=== PATIENT | female | born 1955 | race Caucasian/White ===

== ENCOUNTER 2018-04-28 06:33 | Emergency (ER) | payer BC ==
[2018-04-28] MEDS ORDERED: Metoclopramide HCl 10 MG/2 ML VIAL ONE (07:04)
[2018-04-28] MEDS ORDERED: diphenhydrAMINE 50 MG/ML VIAL ONE (07:04)
[2018-04-28 07:20] LABS: #Lymphocytes 0.8 thou/uL (1.20-3.40); #Monocytes 0.5 thou/uL (0.11-0.59); %Basophils 0.2 % (0.0-1.0); %Eosinophils 0.1 % (0.0-10.0); %Lymphocytes 8.1 % (21.0-51.0); %Monocytes 4.4 % (0.0-10.0); %Neutrophils 87.2 % (42.0-75.0); Hemoglobin 14.2 g/dL (12.0-16.0); Mean Corpuscular HGB CONC 34.1 g/dL (32.0-36.0); Mean Corpuscular Hemoglobin 30.9 pg (27.0-31.0); Mean Corpuscular Volume 90.4 fl (81.0-99.0); Platelet Count 201 thou/uL (130-400); RBC Distribution Width 13.4 % (11.5-14.5); White Blood Cell (WBC) Count 10.3 thou/uL (4.8-10.8)
[2018-04-28 07:40] LABS: ALT (SGPT) 18 U/L (8-55); AST (SGOT) 13 U/L (5-34); Albumin 4.4 g/dL (3.5-5.0); Alkaline Phosphatase 84 U/L (40-150); Anion Gap 12 mmol/L (10-20); BUN (Urea Nitrogen) 15 mg/dL (9.8-20.1); Bilirubin, Total 1.5 mg/dL (0.2-1.2); Calc. Creatinine Clearance 0 mL/min (70-130); Calcium 9.9 mg/dL (7.8-10.44); Carbon Dioxide 27 mmol/L (22-29); Chloride 101 mmol/L (98-107); Estimated GFR-MDRD 74; Globulin 3.3 g/dL (2.4-3.5); Glucose 129 mg/dL (70-105); Potassium 3.4 mmol/L (3.5-5.1); Protein, Total 7.7 g/dL (6.0-8.3); Sodium 137 mmol/L (136-145)
[2018-04-28] MEDS ORDERED: Ketorolac Tromethamine 30 MG/ML VIAL ONE (08:15)
[2018-04-28] MEDS ORDERED: Morphine 4 MG/ML VIAL ONE ×3 (09:07→13:00)
--- NOTE | 2018-04-28 09:27 | CT ---
HEAD CT WITHOUT CONTRAST: History: Headache. Comparison: None. Technique: Noncontrast head CT is performed from skull base to skull vertex. FINDINGS: No parenchymal hemorrhage. No extraaxial hematoma. No midline shift. Basilar cisterns are patent. The re appears to be vasogenic edema in the right frontal lobe. No midline shift. Basilar cisterns are pa tent. Ventricles and sulci are patent and symmetric. Calvarium is intact. Adequate aeration of sinuse s and mastoid air cells. IMPRESSION: Vasogenic edema right frontal lobe. MRI is recommended. POS: [facility]
[2018-04-28] MEDS ORDERED: Water For Inject, Bacteriostat 30 ML ONE (10:05)
[2018-04-28] MEDS ORDERED: methylPREDNISolone Sod Succ/PF 125 MG/2 ML VIAL ONE (10:05)
[2018-04-28] MEDS ORDERED: Gadobenate Dimeglumine 529 MG/1 ML (20ML VIAL) ONE (10:43)
--- NOTE | 2018-04-28 12:32 | MRI ---
BRAIN MRI WITH AND WITHOUT CONTRAST: HISTORY: Vasogenic edema noted on CT. COMPARISON: 02/25/13. TECHNIQUE: A brain MRI is performed with and without intravenous Gadolinium administration. Multisequential, mu ltiplanar imaging is performed. FINDINGS: There is T1 hyperintensity involving the right frontal lobe due to vasogenic edema secondary to an ex traaxial T2 hypointense mass with homogeneous enhancement and enhancing dural tail. Interval develop ment of meningioma is favored. This meningioma is not present on the previous examination. Interval growth and vasogenic edema raise the possibility of a possible aggressive lesion. Meningioma measur es 1.5 cm mediolateral x 1.9 cm anterior posterior x 1.6 cm craniocaudal. No pathologic enhancement of the brain parenchyma. Central arterial flow voids are maintained. Absent restricted diffusion. Additional T2 and FLAIR white matter hyperintensities due to chronic small-vessel ischemic change are noted. No evidence of hydrocephalus. No midline shift. Adequate aeration of the sinuses and mastoid air ce lls. IMPRESSION: Extraaxial mass involving the right frontal convexity with imaging features that have evidence for a right frontal meningioma. POS: [facility]
--- NOTE | 2018-04-28 13:25 | CON ---
DATE OF CONSULTATION: 04/28/2018 ATTENDING PHYSICIAN: Guerrero Mccarty M.D. HISTORY OF PRESENT ILLNESS: The patient is a 62-year-old female with past medical history of hypertension, hyperlipidemia, COPD who presented to the emergency department for headache which be domi today. She describes as a throbbing sensation all across the frontal region with associated phot ophobia, and nausea, vomiting. She does report rheumatic headaches over the last few months in the s imilar region which she had previously attributed to allergies. CT head and MRI were done on arrival , which revealed a right frontal extraaxial lesion which is contrast enhancing favor to represent men ingioma formation. There is some surrounding vasogenic edema as well. The patient was treated with IV Solu-Medrol with some improvement in her symptoms. I am seeing the patient at the bedside. She i s awake, alert, no acute distress. Pupils are equal and reactive to light. Extraocular movements ar e intact. There are no focal neurologic deficits appreciated on my exam. PAST MEDICAL HISTORY: Hypertension, hyperlipidemia, COPD, sleep apnea, morbid obesity. PAST SURGICAL HISTORY: Bilateral knee replacement, breast reduction, cholecystectomy, tonsillectomy, tubal ligation. SOCIAL HISTORY: The patient is a former smoker. She quit in 2001. She does not drink or use any dr ugs. FAMILY HISTORY: Noncontributory. ALLERGIES: The patient has no known drug allergies. REVIEW OF SYSTEMS: Per HPI. PHYSICAL EXAMINATION: VITAL SIGNS: Pulse 77, blood pressure 112/69, respiration rate is 20. She is 93% on 2 liters, tempe rature is 98.6. CONSTITUTIONAL: She is awake and alert, no acute distress. HEAD: Normocephalic, atraumatic. EYES: PERRLA. Extraocular movements intact. ENT: Oral mucosa is pink, intact, moist. She has normal voice. NECK: Nontender to palpation. Free active range of motion, no meningismus nuchal rigidity. CARDIOVASCULAR: Regular rate and rhythm. LUNGS: Breathing clear. She has symmetric chest expansion without any evidence of dyspnea. MUSCULOSKELETAL: Good muscle tone bilateral upper and lower extremities, no focal neurologic deficit s are appreciated. NEUROLOGIC: She is A&O. She has normal cranial nerve exam. No focal neurologic deficits are apprec iated. PLAN: The patient has presented to the ER [facility] with headache, nausea, and vomiting with imaging, which revealed a right frontal lesion favored to represent meningioma formation with surrounding vaso genic edema. She has been treated with IV steroids in the emergency department as well as pain medic ation, nausea medication and reports she is feeling better at this time. She has no neurologic defic its on her exam. I have discussed patient's imaging and presentation as well as exam findings with Beverly Mccarty. She agrees with the patient can be discharged home on a steroid trace taper. I have also provided her with scripts for Tylenol No. 3 for pain and Zofran for nausea. We will plan to follow u p patient in the office in the morning with Dr. Mccarty. I have discussed precautions and reasons to r eturn to the ER. Family is amenable to this plan.
== END 2018-04-28 13:25 | disposition home or self-care (01) ==
LOC: ERS 06:33
DX: D32.1 Benign neoplasm of spinal meninges (principal); R51 Headache; R11.10 Vomiting, unspecified; G47.30 Sleep apnea, unspecified; E78.5 Hyperlipidemia, unspecified; E66.9 Obesity, unspecified; J44.9 Chronic obstructive pulmonary disease, unspecified; F32.9 Major depressive disorder, single episode, unspecified; I10 Essential (primary) hypertension; Z87.891 Personal history of nicotine dependence; Z79.899 Other long term (current) drug therapy
CPT/HCPCS: 70450; 70553; 80053; 83605; 85025; 94760; 96365; 96366; 96375; 96376; A9579; J1200; J1885; J2270; J2765; J2930

== ENCOUNTER 2018-05-09 09:29 | Outpatient (CLI) | payer BC ==
--- NOTE | 2018-05-09 11:34 | CT ---
CT THORAX WITH IV CONTRAST CT ABDOMEN AND PELVIS WITH IV CONTRAST: Date: 05/09/18 HISTORY: Right frontal brain mets, evaluate for primary site. COMPARISON: None available. FINDINGS: CT THORAX: Vascular calcifications seen in the thoracic aorta. Mediastinal structures have a normal appearance a nd there is no evidence of lymphadenopathy. There is minimal nodularity seen along the major fissure on the right, likely related to area of mild nodular pleural thickening. No discrete noncalcified pul monary nodule, mass, or pleural effusion is seen. Atelectasis is seen within the right middle lobe an d lingula with minimal dependent atelectasis. Degenerative changes are seen in the spine. There are sclerotic densities seen along the inferior end plates of a few of the thoracic vertebral bodies, probably related to Schmorl's nodes. No suspicious lytic or sclerotic osseous lesions are identified. CT ABDOMEN/PELVIS: Post cholecystectomy changes are noted. The liver, spleen, pancreas, bilateral adrenal glands, kidneys, opacified bowel, and urinary bladder demonstrate a normal CT appearance. The uterus is small in size, within normal limits for patient's age. Vascular calcifications seen in abdominal aorta and iliac arteries. No free fluid, fluid collection, or lymphadenopathy seen in the abdomen or pelvis. Degenerative changes are seen in the spine. No lytic or sclerotic osseous lesions are identified. IMPRESSION: 1. No acute findings are seen in the chest, abdomen, or pelvis. 2. No lymphadenopathy or findings to suggest metastatic disease. 3. Enlargement of the liver in craniocaudal dimensions, which measures 20.0 cm, but this may be deve lopmental in origin. 4. Vascular calcifications. POS: [facility]
[2018-05-09] MEDS ORDERED: Iopamidol 370 76% 100 ML VIAL ONE (16:28)
== END 2018-05-09 09:30 | disposition home or self-care (01) ==
LOC: CT 09:29
PROVIDERS: ATTEND Radiology Radiation Oncology
DX: C79.31 Secondary malignant neoplasm of brain (principal); R16.0 Hepatomegaly, not elsewhere classified; I70.0 Atherosclerosis of aorta
CPT/HCPCS: 71260; 74177

== ENCOUNTER 2018-06-12 10:11 | Outpatient (CLI) | payer BC ==
[2018-06-12 12:55] LABS: Hemoglobin 13.6 g/dL (12.0-16.0); Mean Corpuscular HGB CONC 33.3 g/dL (32.0-36.0); Mean Corpuscular Hemoglobin 31.4 pg (27.0-31.0); Mean Corpuscular Volume 94.2 fL (78.0-98.0); Mean Platelet Volume 8.1 fL (7.4-10.4); Platelet Count 208 thou/uL (130-400); RBC Distribution Width 13.1 % (11.5-14.5); Red Blood Cell (RBC) Count 4.32 mill/uL (4.20-5.40)
[2018-06-12 12:59] LABS: INR-International Normal Ratio 0.9; Prothrombin Time 12.4 SEC (12.0-14.7)
[2018-06-12 13:06] LABS: PTT 21.6 SEC (22.9-36.1)
[2018-06-12 13:11] LABS: Anion Gap 12 mmol/L (10-20); BUN (Urea Nitrogen) 22 mg/dL (9.8-20.1); Calc. Creatinine Clearance 0 mL/min (70-130); Calcium 10.2 mg/dL (7.8-10.44); Carbon Dioxide 33 mmol/L (23-31); Chloride 100 mmol/L (98-107); Estimated GFR-MDRD 79; Glucose 74 mg/dL (80-115); Potassium 3.7 mmol/L (3.5-5.1); Sodium 141 mmol/L (136-145)
[2018-06-12 13:25] LABS: ALT (SGPT) 32 U/L (8-55); AST (SGOT) 13 U/L (5-34); Albumin 4.1 g/dL (3.4-4.8); Alkaline Phosphatase 53 U/L (40-150); Bilirubin, Direct 0.3 mg/dL (0.1-0.3); Protein, Total 6.8 g/dL (6.0-8.3)
--- NOTE | 2018-06-12 14:02 | RAD ---
TWO VIEWS CHEST: 06/12/2018 PROVIDED CLINICAL HISTORY: Preop. COMPARISON: 10/02/2012 FINDINGS: The cardiac silhouette appears enlarged. The pulmonary vasculature is at the upper limits of normal in size. No focal consolidation, pleural fluid, or pneumothorax apparent. Degenerative changes are seen involving the thoracic spine. IMPRESSION: Cardiomegaly and upper limits of normal pulmonary vasculature. POS: [facility]
--- NOTE | 2018-06-12 16:33 | EKG ---
Test Reason : Blood Pressure : / mmHG Vent. Rate : 065 BPM Atrial Rate : 065 BPM P-R Int : 184 ms QRS Dur : 090 ms QT Int : 426 ms P-R-T Axes : 038 023 032 degrees QTc Int : 443 ms Poor data quality, interpretation may be adversely affected Sinus rhythm with Possible Premature atrial complexes with Abberant conduction or premature ventricular complexes. Otherwise normal ECG No previous ECGs available Confirmed by CARMEN CADE ([id number]) on 06/12/2018 4:33:30 PM Referred By: GIL Confirmed By:CARMEN CADE
== END 2018-06-12 10:12 | disposition home or self-care (01) ==
LOC: LABBT 10:11
PROVIDERS: ATTEND Neurological Surgery
DX: Z01.818 Encounter for other preprocedural examination (principal); D49.6 Neoplasm of unspecified behavior of brain; I51.7 Cardiomegaly
CPT/HCPCS: 71046; 80048; 80076; 85027; 85610; 85730; 87086; 93005; 93010

== ENCOUNTER 2018-06-12 10:15 | Inpatient (IN) | payer BC ==
--- NOTE | 2018-06-20 00:40 | HP ---
HISTORY OF PRESENT ILLNESS: Ms. Smith is a 63-year-old woman known to us for emergency room evaluatio n for headache with MRI of the brain revealing right-sided skull based frontal dural-based lesion, li luke meningioma with some associated peritumoral edema. He has been on steroids while we plan on italo gical resection that she has seen Dr. Cox for consultation on stereotactic radiosurgery to raysa wasserman surgical resection. PAST MEDICAL HISTORY: Significant for hyperlipidemia, hypertension, gastroesophageal reflux disease, anxiety. CURRENT MEDICATIONS: VESIcare, pantoprazole, lovastatin, lisinopril, and citalopram. ALLERGIES: No known drug allergies. PAST SURGICAL HISTORY: Unassessed. PHYSICAL EXAMINATION: GENERAL: Patient is alert and oriented x3. NEUROLOGIC: Gait is normal, no ataxia. Cranial nerves are all intact. ASSESSMENT: Extraaxial intracranial mass and headache. PLAN: Dr. Mccarty met with the patient, reviewed imaging ultimately advocated for a right cranio joi with dural based lesion resection. I have explained to the patient the risks, benefits, and alt ernatives to the procedure. The patient expressed understanding and would like to move forward with surgery as discussed. I do believe the patient is mentally competent and capable of making medical d ecisions for herself and we will move forward with surgery as planned.
[2018-06-20] MEDS ORDERED: Propofol 1,000 MG/100 ML VIAL IV ONE (06:12)
[2018-06-20] MEDS ORDERED: Fentanyl 250 MCG/5 ML VIAL ONE (06:12)
[2018-06-20] MEDS ORDERED: Midazolam HCl 2 mg/2 ml Vial ONE (06:12)
[2018-06-20] MEDS ORDERED: CEFAZOLIN/Water 2 GM/20 ML SYRINGE ONE (06:39)
[2018-06-20] MEDS ORDERED: Bacitracin Zinc Ointment 30 gm TUBE ONE (06:43)
[2018-06-20] MEDS ORDERED: Thrombin 5000 UNITS/5 ML VIAL ONE (06:43)
[2018-06-20] MEDS ORDERED: Lidocaine 0.5%/Epinephrine 1:200,000 50 ml Vial ONE (06:43)
[2018-06-20] MEDS ORDERED: niCARdipine HCl 25 MG in Sodium Chloride 0.9% 250 ML 240 ML IVPB SCH (07:15)
[2018-06-20] MEDS ORDERED: Fosphenytoin Sodium 500 mg/10 ml Vial ONE ×2 (07:15→08:01)
[2018-06-20] MEDS ORDERED: Fentanyl 100 MCG/2 ML VIAL ONE ×3 (08:17→10:35)
[2018-06-20] MEDS ORDERED: PHENYLEPHRINE-NS 100 MCG/ML 10 ML SYRINGE ONE ×2 (08:37→15:05)
[2018-06-20] MEDS ORDERED: Ondansetron HCl/PF 4 MG/2 ML Vial IVP PRN (10:14)
[2018-06-20] MEDS ORDERED: diphenhydrAMINE 50 MG/ML VIAL IVP PRN (10:14)
[2018-06-20] MEDS ORDERED: hydrALAZINE 20 MG/ML VIAL SLOW IVP PRN (10:14)
[2018-06-20] MEDS ORDERED: Mag-Al 1200 mg/1200 mg/30 ML UDCUP PO PRN (10:14)
[2018-06-20] MEDS ORDERED: Labetalol HCl 100 MG/20 ML VIAL SLOW IVP PRN (10:14)
[2018-06-20] MEDS ORDERED: SUGAMMADEX SODIUM 200 MG/2 ML VIAL ONE (10:15)
[2018-06-20] MEDS ORDERED: Sodium Chloride 0.9% 1,000 ML IV SCH (10:15)
[2018-06-20] MEDS ORDERED: PROVENTIL INHALER 6.7 G (200 INHALATIONS) INH PRN (10:18)
[2018-06-20] MEDS ORDERED: Ipratropium Bromide 0.03% Nasal Inhaler 30 ml Bottle FS PRN (10:18)
[2018-06-20] MEDS ORDERED: Acetaminophen 1,000 MG in Premix Bag 1 BAG IVPB PRN (10:19)
[2018-06-20] MEDS ORDERED: HYDROmorphone 2 MG/ML VIAL SLOW IVP PRN (10:51)
[2018-06-20] MEDS ORDERED: Morphine Sulfate 2 MG/ML SYRINGE SLOW IVP PRN (10:51)
[2018-06-20] MEDS ORDERED: Meperidine HCl/PF 25 MG/ML VIAL SLOW IVP PRN (10:51)
[2018-06-20] MEDS ORDERED: Promethazine HCl 25 MG/ML VIAL SLOW IVP PRN (10:51)
[2018-06-20] MEDS ORDERED: Betamethasone 0.1% Cream 15 GM TUBE TOP PRN (11:15)
[2018-06-20] MEDS ORDERED: [UNRECOGNIZED DRUG - OTHER] TOP PRN (11:30)
[2018-06-20 12:21] VITALS: BMI 54.9
[2018-06-20] MEDS: HYDROcodone/Acetaminophen 7.5/325 mg Tablet PO PRN ×3 (13:05→21:23)
[2018-06-20] MEDS: Fosphenytoin Sodium 100 MG in Sodium Chloride 0.9% 50 ML IVPB SCH ×2 (13:42→21:22)
[2018-06-20] MEDS ORDERED: Fosphenytoin Sodium 100 mg/2 ml Vial IVPB SCH (15:00)
[2018-06-20] MEDS ORDERED: Lidocaine 1% PF 5 ML VIAL ONE (15:05)
[2018-06-20] MEDS ORDERED: ePHEDrine/0.9% NaCl/PF SYRINGE 50 mg/10 ml ONE ×2 (15:05)
[2018-06-20] MEDS ORDERED: PROPOFOL 200 MG/20 ML VIAL ONE (15:05)
[2018-06-20] MEDS ORDERED: Glycopyrrolate 0.2 MG/ML 5 ML SYRINGE ONE (15:05)
[2018-06-20] MEDS ORDERED: Mannitol 12.5 GM/50 ML ONE (15:05)
[2018-06-20] MEDS ORDERED: Hydrocortisone Sod Succ/PF 100 mg/2 ml Vial ONE (15:05)
[2018-06-20] MEDS ORDERED: Vecuronium 10 MG VIAL ONE (15:05)
[2018-06-20] MEDS ORDERED: Ondansetron HCl/PF 4 MG/2 ML Vial ONE (15:05)
[2018-06-20] MEDS ORDERED: Esmolol 100 MG/10 ML VIAL ONE (15:05)
[2018-06-20] MEDS: CEFAZOLIN/Water 2 GM/20 ML SYRINGE SLOW IVP SCH ×2 (15:23→23:38)
[2018-06-20] MEDS ORDERED: Furosemide 40 MG/4 ML VIAL SLOW IVP SCH (16:00)
[2018-06-20] MEDS: Mometasone/Formoterol 120 PUFF INHALER INH SCH (18:28)
--- NOTE | 2018-06-20 20:43 | CON ---
DATE OF CONSULTATION: 06/20/2018 SERVICE: PULMONARY MEDICINE. REASON FOR CONSULTATION: ICU patient. HISTORY OF PRESENT ILLNESS: The patient is a 63-year-old morbidly obese white female with past medic al history significant for asthma and obstructive sleep apnea. She was in her usual state of health when she started having intermittent headaches and common vision issues. She had an MRI of the head in the outpatient setting. It demonstrated a meningioma. She presented for an elective procedure in order to have the meningioma removed. She currently denies any fevers, chills, nausea or vomiting. She has got a good appetite at this point. PAST MEDICAL HISTORY: 1. Morbid obesity. 2. Hypertension. 3. Dyslipidemia. 4. Obstructive sleep apnea, severe. 5. Gastroesophageal reflux disease. 6. Anxiety disorder. PAST SURGICAL HISTORY: Craniectomy with excision of meningioma. FAMILY HISTORY: Noncontributory. SOCIAL HISTORY: Negative for alcohol, tobacco or illicit drug use. ALLERGIES: No known drug allergies. MEDICATIONS: List of her inpatient medications was reviewed. No specific updates were made at this time. REVIEW OF SYSTEMS: General, head, ears, eyes, nose, throat, cardiovascular, respiratory, GI, , mus culoskeletal, neurologic and skin is negative except as mentioned in the HPI. PHYSICAL EXAMINATION: VITAL SIGNS: Afebrile, pulse 84, blood pressure 127/57, respirations 16, saturation 93% on 2 liters nasal cannula. GENERAL: Patient is awake, alert, no apparent distress. LUNGS: Decent air entry. There is no prolonged expiratory phase or wheezing present. HEART: Normal rate, regular. ABDOMEN: Soft, nontender and nondistended. Bowel sounds positive. MUSCULOSKELETAL: No cyanosis or clubbing. There is 1+ pitting in the bilateral lower extremities. NEUROLOGIC: Grossly nonfocal. LABORATORY DATA: Blood sugar 149. ASSESSMENT: 1. Acute hypoxic respiratory failure. 2. Asthma without recurrent exacerbation. 3. Acute on chronic diastolic heart failure. 4. Meningioma, status post frontal craniectomy with excision, postop day 0. 5. Seizure in the immediate postop period. DISCUSSION AND PLAN: The patient is doing absolutely fantastic. We will provide her with a dose of Lasix. We will watch her very closely for repeat seizure activity or changes in mental status. We w ill continue her Dulera and I will provide her with DuoNeb to be used on a p.r.n. basis. She knows t hat she needs to use her CPAP while she is here. She required 14 cm of water pressure. If she can h ave that at her home unit, we will try to arrange for her to have one of ours. Pulmonary or Critical Care will continue to follow along in this location.
[2018-06-20] MEDS: Dexamethasone 4 MG TAB PO SCH (21:22)
[2018-06-20] MEDS: Simvastatin 5 MG TAB PO SCH (21:58)
[2018-06-20] MEDS: TROSPIUM 20 MG TABLET PO SCH (21:59)
[2018-06-21 04:53] LABS: #Lymphocytes 1.7 thou/uL (1.20-3.40); #Monocytes 1.2 thou/uL (0.11-0.59); #Neutrophils 12.9 thou/uL (1.40-6.50); %Eosinophils 0.2 % (0.0-10.0); %Lymphocytes 10.7 % (21.0-51.0); %Monocytes 7.4 % (0.0-10.0); %Neutrophils 81.6 % (42.0-75.0); Hemoglobin 13.3 g/dL (12.0-16.0); Mean Corpuscular HGB CONC 33.5 g/dL (32.0-36.0); Mean Corpuscular Hemoglobin 31.7 pg (27.0-31.0); Mean Corpuscular Volume 94.5 fL (78.0-98.0); Mean Platelet Volume 7.5 fL (7.4-10.4); Platelet Count 228 thou/uL (130-400); RBC Distribution Width 13.3 % (11.5-14.5); Red Blood Cell (RBC) Count 4.19 mill/uL (4.20-5.40); White Blood Cell (WBC) Count 15.8 thou/uL (4.8-10.8)
[2018-06-21 05:33] LABS: Anion Gap 16 mmol/L (10-20); BUN (Urea Nitrogen) 19 mg/dL (9.8-20.1); Calc. Creatinine Clearance 163 mL/min (70-130); Calcium 9.4 mg/dL (7.8-10.44); Carbon Dioxide 28 mmol/L (23-31); Chloride 97 mmol/L (98-107); Estimated GFR-MDRD 81; Glucose 102 mg/dL (80-115); Potassium 4.2 mmol/L (3.5-5.1); Sodium 137 mmol/L (136-145)
[2018-06-21] MEDS: Mometasone/Formoterol 120 PUFF INHALER INH SCH ×2 (07:27→19:08)
[2018-06-21] MEDS: Fosphenytoin Sodium 100 MG in Sodium Chloride 0.9% 50 ML IVPB SCH ×3 (08:01→21:58)
[2018-06-21] MEDS ORDERED: Vit B12/Folic Acid/B6/Aa No.15 [Glycotrol Capsule] PO SCH (09:00)
[2018-06-21] MEDS ORDERED: Famotidine 20 MG TAB PO SCH (09:00)
[2018-06-21] MEDS ORDERED: Citalopram 20 MG TAB PO SCH (09:00)
[2018-06-21] MEDS: Benzonatate 100 MG CAP PO SCH (09:13)
[2018-06-21] MEDS: Citalopram 20 MG TAB PO SCH (09:22)
[2018-06-21] MEDS: Dexamethasone 4 MG TAB PO SCH ×2 (09:23→21:58)
[2018-06-21] MEDS: Multivit, Therapeutic 1 TAB PO SCH (09:25)
[2018-06-21] MEDS: Lisinopril 20 MG TAB PO SCH (09:25)
[2018-06-21] MEDS: Docusate 100 MG CAP PO SCH (09:27)
[2018-06-21] MEDS: TROSPIUM 20 MG TABLET PO SCH ×2 (10:37→21:58)
--- NOTE | 2018-06-21 11:07 | PRG ---
DATE OF SERVICE: 06/21/2018 SERVICE: Pulmonary Medicine. INTERVAL HISTORY: Overnight, the patient's appetite picked up. She is no longer having any nausea. She denies any fevers, chills, nausea, vomiting, shortness of breath or chest discomfort. Her lower extremity swelling has improved dramatically. Otherwise, there has been no interval change to her c ondition. PHYSICAL EXAMINATION: VITAL SIGNS: Afebrile, pulse 80, blood pressure 132/75, respirations 17, saturation 97% on room air. GENERAL: The patient is awake, alert, in no apparent distress. LUNGS: Excellent air entry. There is no prolonged expiratory phase, wheezing, rhonchi, or crackles present. HEART: Normal rate, regular. ABDOMEN: Soft, nontender and nondistended. Bowel sounds are positive. MUSCULOSKELETAL: No cyanosis or clubbing. No pitting in the bilateral lower extremities. NEUROLOGIC: Nonfocal. LABORATORY DATA: WBC 15.8, hemoglobin 13.3, platelets 228,000. Basic metabolic profile is unremarka ble. ASSESSMENT: 1. Acute hypoxic respiratory failure, resolved. 2. Asthma without current exacerbation. 3. Acute on chronic diastolic heart failure, resolved to baseline. 4. Meningioma, status post frontal craniectomy with excision, postop day #1. 5. Seizure in the immediate postop period, resolved. DISCUSSION AND PLAN: The patient will be transitioned to the floor. From a purely respiratory persp ective, she has no pulmonary requirements today in the hospital. Hopefully, she will be going home i n 24 hours. Agree with transition to the floor.
[2018-06-21] MEDS: HYDROcodone/Acetaminophen 7.5/325 mg Tablet PO PRN (16:15)
--- NOTE | 2018-06-21 18:07 | PRG ---
DATE OF SERVICE: 06/21/2018 I am seeing Ms. Smith postoperative day 1 from resection of a right frontal meningioma. She is doing extremely well, is up eating and neurologically intact. She has right periorbital ecchymosis as anti cipated. She will go to the floor today and home in the next several days depending on her ambulatio n.
[2018-06-21] MEDS ORDERED: Sodium Chloride 0.9% 10 ML ONE (19:46)
[2018-06-21] MEDS: Simvastatin 5 MG TAB PO SCH (21:58)
[2018-06-22] MEDS: HYDROcodone/Acetaminophen 7.5/325 mg Tablet PO PRN ×2 (04:12→22:09)
[2018-06-22] MEDS: Mometasone/Formoterol 120 PUFF INHALER INH SCH ×2 (07:34→19:12)
--- NOTE | 2018-06-22 08:25 | PRG ---
DATE OF SERVICE: 06/22/2018 SUBJECTIVE: Ms. Smith is postoperative day #2, status post resection of right frontal meningioma. She was transitioned to the floor yesterday and since that time reports that she is doing well. Her pain is well controlled with p.o. medications, she is tolerating regular diet, she is voiding appropriately. She has been ambulatory short distance to the bathroom, but her family reports she still seems to be unsteady on her feet and slightly lightheaded with getting up suddenly.Her incision remains dry and intact. We will have her continue to work with PT, OT and I have placed a rehab screen per the patient and family request. LUCY
[2018-06-22] MEDS: Benzonatate 100 MG CAP PO SCH (08:43)
[2018-06-22] MEDS: Lisinopril 20 MG TAB PO SCH (10:18)
[2018-06-22] MEDS: TROSPIUM 20 MG TABLET PO SCH ×2 (10:19→22:01)
[2018-06-22] MEDS: Multivit, Therapeutic 1 TAB PO SCH (10:19)
[2018-06-22] MEDS: Docusate 100 MG CAP PO SCH (10:19)
[2018-06-22] MEDS: Citalopram 20 MG TAB PO SCH (10:20)
[2018-06-22] MEDS: Fosphenytoin Sodium 100 MG in Sodium Chloride 0.9% 50 ML IVPB SCH ×3 (10:20→22:01)
[2018-06-22] MEDS: Dexamethasone 4 MG TAB PO SCH ×2 (10:26→22:01)
--- NOTE | 2018-06-22 18:53 | PRG ---
DATE OF SERVICE: 06/22/2018 SERVICE: Pulmonary Medicine. INTERVAL HISTORY: The patient is doing outstanding from a respiratory standpoint. She is breathing comfortably. She continues to have a headache, but is a different quality of headache. She is no lo nger pounding/throbbing headache. She is tolerating p.o. She is passing gas and having bowel moveme nts. Otherwise, there has been no notable change to her condition. If things go well, she is told t hat she will be going home in the morning. PHYSICAL EXAMINATION: VITAL SIGNS: Afebrile, pulse 78, blood pressure 160/82, respirations 15, saturation 92% on room air. GENERAL: The patient is awake, alert, no apparent distress. LUNGS: Decent air entry. Dependent crackles are minimal. No prolonged expiratory phase or wheezing is appreciated. HEART: Normal rate, regular. ABDOMEN: Soft, nontender, nondistended. Bowel sounds are positive. MUSCULOSKELETAL: No cyanosis or clubbing. There is no pitting in the bilateral lower extremities. NEUROLOGIC: Grossly nonfocal. ASSESSMENT: 1. Acute hypoxic respiratory failure, resolved. 2. Asthma without current exacerbation. 3. Obstructive sleep apnea, compliant with CPAP therapy. 4. Acute on chronic diastolic heart failure, resolved to baseline. 5. Seizure in the immediate postoperative period, resolved. 6. Meningioma, status post frontal craniotomy with excision, postoperative day 2. DISCUSSION AND PLAN: The patient is doing absolutely wonderful from a respiratory standpoint. At th is point, she has no further requirements for inpatient Pulmonary or Critical Care opinion. As such, I will sign off. Please call with additional questions or concerns moving forward.
[2018-06-22] MEDS: Simvastatin 5 MG TAB PO SCH (22:01)
[2018-06-23] MEDS: Mometasone/Formoterol 120 PUFF INHALER INH SCH (07:07)
[2018-06-23] MEDS: Fosphenytoin Sodium 100 MG in Sodium Chloride 0.9% 50 ML IVPB SCH (08:44)
[2018-06-23] MEDS: Multivit, Therapeutic 1 TAB PO SCH (08:45)
[2018-06-23] MEDS: TROSPIUM 20 MG TABLET PO SCH (08:45)
[2018-06-23] MEDS: Docusate 100 MG CAP PO SCH (08:45)
[2018-06-23] MEDS: Lisinopril 20 MG TAB PO SCH (08:46)
[2018-06-23] MEDS: Citalopram 20 MG TAB PO SCH (08:47)
[2018-06-23] MEDS: Dexamethasone 4 MG TAB PO SCH (08:48)
[2018-06-23] MEDS: Benzonatate 100 MG CAP PO SCH (08:48)
[2018-06-23 11:35] VITALS: TEMP 98.9
[2018-06-23 13:34] VITALS: BP 145/85
--- NOTE | 2018-06-25 11:28 | OP ---
DATE OF PROCEDURE: 06/20/2018 SURGEON: Guerrero Mccarty M.D. ORACLE ANALYST: Storm Cardenas PA-C. INDICATION: Obtain diagnosis. DIAGNOSES: Right frontal lesion. PROCEDURE: Right frontal craniotomy, resection of tumor, cranioplasty for repair of skull defect. ANESTHESIA: General. TECHNIQUE: The patient was brought into the operating room and placed under general anesthesia. She was placed on the table in a supine position. Her head was placed in 3-point Saleh tremaine and af fixed to the bed and positioned neutral with her head turned slightly to the left. A curvilinear inc ision was planned over the right frontal bone. This area was prepped and draped in the usual sterile fashion. Following an appropriate operative pause, the incision was created. The tissue was reflec law anteriorly. Two papito holes were placed and were connected such that the right frontal craniotomy was performed. The underlying dura was identified and incised and opened where the dura was reflect ed anteriorly. There is no invasion of the frontal sinuses part of the craniotomy. The operating mi croscope was brought into the field for the purposes of microdissection. The extraaxial tumor was id entified along the floor of the right frontal fossa. This was carefully removed in a gross total fas hion. Hemostasis was maintained throughout. The wound was irrigated. The dura was closed with an o nlay of Duragen. The bone flap was returned and secured with screws and plates. Methyl methacrylate was then used to perform cranioplasty to repair dural defects as the craniotomy site was low on the frontal lobe behind the skin of the forehead. The wound was then closed in anatomic layers and a pre ssure dressing was applied. There were no known procedural complications.
== END 2018-06-23 15:15 | disposition home or self-care (01) | DRG 25 ==
LOC: SURG A 06-20 05:48 → EDSTATUS 06-20 10:15 → CCU 06-20 11:36 → SURG A 06-21 16:16
PROVIDERS: ADMIT Neurological Surgery; ATTEND Neurological Surgery
PROC: 00B70ZZ Excision of Cerebral Hemisphere, Open Approach (ICD-10-PCS; principal; 2018-06-20)
DX: D32.0 Benign neoplasm of cerebral meninges (principal); J96.01 Acute respiratory failure with hypoxia; I50.33 Acute on chronic diastolic (congestive) heart failure; Z68.43 Body mass index [BMI] 50.0-59.9, adult; J45.909 Unspecified asthma, uncomplicated; G47.33 Obstructive sleep apnea (adult) (pediatric); R56.9 Unspecified convulsions; E66.01 Morbid (severe) obesity due to excess calories; I11.0 Hypertensive heart disease with heart failure; E78.5 Hyperlipidemia, unspecified; K21.9 Gastro-esophageal reflux disease without esophagitis; F41.9 Anxiety disorder, unspecified
CPT/HCPCS: 36416; 80048; 85025; 88307; 88341; 88342; 88360; A4216; C1713; G8978-GP-CN; G8979-GP-CJ; G8987-GO-CJ; G8988-GO-CJ; G8989-GO-CJ; J1200; J1642; J1720; J1940; J2001; J2150; J2250; J2405; J2704; J3010; J7050; J7620; J8540; Q2009

== ENCOUNTER 2018-06-19 12:53 | Outpatient (CLI) | payer BC | END 2018-06-19 12:54 | disposition home or self-care (01) | LOC: BICMAMMO 12:53 | PROVIDERS: ATTEND Nurse Practitioner Family | DX: Z12.31 Encounter for screening mammogram for malignant neoplasm of breast (principal) | CPT/HCPCS: 77063; 77067 ==

== ENCOUNTER 2018-06-29 21:41 | Inpatient (IN) | payer BC ==
[~2018-06-29 21:41] MED LIST: ISOVUE-370 76%-LOCM 1 ML ONE
[2018-06-29 22:20] LABS: #Basophils 0.1 thou/uL (0.0-0.2); #Eosinphils 0.1 thou/uL (0.0-0.7); #Lymphocytes 3.2 thou/uL (1.20-3.40); #Monocytes 0.5 thou/uL (0.11-0.59); #Neutrophils 8.5 thou/uL (1.40-6.50); %Basophils 0.4 % (0.0-1.0); %Eosinophils 0.5 % (0.0-10.0); %Lymphocytes 26.3 % (21.0-51.0); %Neutrophils 68.7 % (42.0-75.0); Hemoglobin 13.7 g/dL (12.0-16.0); Mean Corpuscular HGB CONC 33.8 g/dL (32.0-36.0); Mean Corpuscular Hemoglobin 31.7 pg (27.0-31.0); Mean Corpuscular Volume 93.5 fL (78.0-98.0); Mean Platelet Volume 8.4 fL (7.4-10.4); Platelet Count 240 thou/uL (130-400); RBC Distribution Width 13.6 % (11.5-14.5); Red Blood Cell (RBC) Count 4.33 mill/uL (4.20-5.40); White Blood Cell (WBC) Count 12.3 thou/uL (4.8-10.8)
--- NOTE | 2018-06-29 22:31 | RAD ---
PORTABLE CHEST: History: Chest pain, sudden onset. FINDINGS: Heart size is enlarged. There are atherosclerotic changes of the aorta. The lungs are clear of infilt rates. There are no signs of failure. IMPRESSION: Cardiomegaly. POS: [facility]
[2018-06-29 22:37] LABS: CKMB 1.4 ng/mL (0-6.6); Troponin I 0.037 ng/mL (< 0.028)
[2018-06-29] MEDS ORDERED: Heparin 25,000 units/D5W 500 ML ONE (22:58)
--- NOTE | 2018-06-29 23:03 | CT ---
CT ANGIO OF CHEST PERFORMED WITH INTRAVENOUS CONTRAST ENHANCEMENT WITH 3D RECONSTRUCTIONS: History: Sudden onset of shortness of breath. History of recent craniotomy. FINDINGS: The lungs show areas of ground glass opacity and hypoattenuation which could indicate air trapping. N o infiltrative process or pleural effusions. The thoracic aorta is normal in caliber. There is good pulmonary artery opacification and there is massive pulmonary embolus. There is a sagit demian embolus and extensive lower lobe emboli, lesser changes of both upper lobes. Visualized liver parenchyma shows no focal findings. Gallbladder has been removed. IMPRESSION: Massive pulmonary embolus. No definitive signs of right ventricle dysfunction. The septum does not ap pear bowed. There is some reflux into the hepatic veins. Findings discussed with Dr. Guzman. POS: [facility]
[2018-06-29 23:17] LABS: Calcium 9.8 mg/dL (7.8-10.44); Chloride 104 mmol/L (98-107); Potassium 4.8 mmol/L (3.5-5.1); Sodium 139 mmol/L (136-145)
[2018-06-29 23:18] LABS: Globulin 2.8 g/dL (2.4-3.5); Glucose 208 mg/dL (80-115); Protein, Total 6.8 g/dL (6.0-8.3)
[2018-06-29 23:20] LABS: Anion Gap 17 mmol/L (10-20); Bilirubin, Total 0.2 mg/dL (0.2-1.2); Carbon Dioxide 23 mmol/L (23-31)
[2018-06-29 23:21] LABS: Alkaline Phosphatase 87 U/L (40-150)
[2018-06-29 23:22] LABS: Calc. Creatinine Clearance 0 mL/min (70-130); Estimated GFR-MDRD 68
[2018-06-29 23:23] LABS: AST (SGOT) 59 U/L (5-34); BUN (Urea Nitrogen) 29 mg/dL (9.8-20.1)
[2018-06-29 23:24] LABS: ALT (SGPT) 86 U/L (8-55)
[2018-06-29 23:25] LABS: CK (CPK) 64 U/L (29-168); Lipase 115 U/L (8-78)
[2018-06-29] MEDS ORDERED: Albuterol Sulfate 2.5 mg/3 ml Neb NEB PRN (23:27)
--- NOTE | 2018-06-29 23:44 | CT ---
CT OF BRAIN PERFORMED WITHOUT CONTRAST ENHANCEMENT: History: Patient underwent a craniotomy nine days ago. Comparison: CT and MRI study of 04-28-18. FINDINGS: There are post op right frontal craniotomy changes seen. There is edema change within the right front al lobe and there is a focus of what appears to be intraaxial hemorrhage within the right frontal lob e white matter/haywood matter junction region. Minimal mass effect is seen associated with these changes . Mastoid air cells and visualized sinuses are clear. IMPRESSION: Post op right frontal craniotomy change. There is white matter edema changes seen associated with a f ocus of parenchymal hemorrhage, somewhat diffuse in nature, suggesting that this is partially resolvi ng but does have acute elements. Main focus of hemorrhage measures approximately 12 mm in size. POS: [facility]
[2018-06-29] MEDS ORDERED: Ondansetron HCl/PF 4 MG/2 ML Vial IVP PRN (23:53)
[2018-06-29] MEDS ORDERED: Acetaminophen 325 MG TAB PO PRN (23:53)
[2018-06-29] MEDS ORDERED: Heparin 10,000 UNITS/ 10 ML VIAL SLOW IVP SCH (23:53)
[2018-06-29 23:58] LABS: Actual Bicarbonate (HCO3a) 26.6 mEq/L (22-28); Base Excess (BEa) 1.3 mEq/L (-2.0 to +3.0); CO2 Tension 44.6 mmHg (35.0-45.0); Hematocrit-ABG 37.4 % (36.0-47.0); Hemoglobin (Hb) 12.5 g/dL (12.0-16.0); O2 Tension (PaO2) 229.5 mmHg (> 80.0); pH, Arterial 7.39 (7.35-7.45)
[2018-06-29 23:59] LABS: Analyzer IN Cardio ER; Calcium, Ionized 1.2 mmol/L (1.12-1.30); Puncture Site RRAD
--- NOTE | 2018-06-30 | HP ---
DATE OF ADMISSION: 06/29/2018 CHIEF COMPLAINT: Chest pain. 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 Mccarty and patient had biopsy pending. She developed a sudden onset of chest pain around 8:00 p.m. this aft ernoon and she decided to come to the ER for further evaluation. When patient presented to the ER, s he was very hypoxic with saturations in 80s-90s and low blood pressures and the patient had a CT of t he chest suggestive of a big massive saddle embolus. The patient became hypoxic and dropped blood pr essure and was given 1 liter of IV fluids and because of the recent craniotomy 11 days ago, Neurosurg blake was consulted who had a very strict recommendations for heparin drip to avoid heparin bolus and a dvised repeat CT every day in the morning. Patient denies having any chest pain at this time. Pain is improved with the nitro. Denies having any nausea or vomiting at this time. She did have dizzine ss at the time of chest pain. No abdominal pain, no diarrhea, no constipation. She complains of num bness in both feet, edema and swelling in the right leg. PAST MEDICAL HISTORY: 1. Morbid obesity. 2. Chronic obstructive pulmonary disease. 3. Obstructive sleep apnea. 4. Hypertension. 5. Hyperlipidemia. 6. GERD. PAST SURGICAL HISTORY: Craniotomy recent 11 days ago for extracranial mass removal. ALLERGIES: No known drug allergies. HOME MEDICATIONS: VESIcare, pantoprazole, lovastatin, lisinopril, and citalopram. ALLERGIES: No known drug allergies. FAMILY HISTORY: No significant family history of coronary artery disease has been reviewed. REVIEW OF SYSTEMS: All 12 systems are reviewed with the patient thoroughly and found to be negative at this time. Systems reviewed are HEENT, CVS, SMALL ORDER CUTTER, respiratory, GI, . The following complete review of systems was negative, unless otherwise mentioned in the HPI or below: Constitutional: Weight loss or gain, sense of well-being, ability to conduct usual activities, exerc ise tolerance. Skin/Breast: Rash, itching, changes in hair growth or loss, nail changes, breast lumps, tenderness, swelling, nipple discharge. Eyes: Vision, double vision, tearing, blind spots, pain. ENT/Mouth: Headaches (location, time of onset, duration, precipitating factors), vertigo, lightheadedness, injury. Vision, double vision, tearing, blind spots, pain, nose b leeding, colds, obstruction, discharge, dental difficulties, gingival bleeding, dentures, neck stiffn ess, pain, tenderness, masses in thyroid or other areas Cardiovascular: Precordial pain, substernal distress, palpitations, syncope, dyspnea on exertion, or thopnea, nocturnal paroxysmal dyspnea, edema, cyanosis, hypertension, heart murmurs, varicosities, ph lebitis, claudication. Respiratory: Pain, shortness of breath, wheezing, stridor, cough, hemoptysis, fever or night sweats Gastrointestinal: Poor appetite, dysphagia, indigestion, abdominal pain, heartburn, eructation, naus ea, vomiting, hematemesis, jaundice, constipation, or diarrhea, abnormal stools (magen-colored, tarry, bloody, greasy, foul smelling), flatulence, hemorrhoids, recent changes in bowel habits. Genitourinary: Urgency, frequency, dysuria, nocturia, hematuria, polyuria, oliguria, unusual (or abdullahi nge in) color of urine, stones, hesitancy, change in size of stream, dribbling, acute retention or in continence, libido, potency. Musculoskeletal: Pain, swelling, redness or heat of muscles or joints, limitation, of motion, muscular weakness, atrophy, cramps. Neurologic/Psychiatric: Convulsions, paralyses, tremor, incoordination, parasthesias, difficulties w ith memory of speech, sensory or motor disturbances, or muscular coordination (ataxia, tremor), emoti onal problems, anxiety, depression, previous psychiatric care, unusual perceptions, hallucinations. Allergy/Immunologic: Skin rash, anemia, bleeding tendency, polydipsia, polyuria, intolerance to heat or cold. PHYSICAL EXAMINATION: VITAL SIGNS: Blood pressure 95/60, heart rate is 110, respiratory rate is 18, saturation is 92% on 1 5 liters of rebreather mask. GENERAL: The patient is seen lying in the bed supine, does not appear to be any acute distress at th is time, but she is on a rebreather mask. She is able to talk in full sentences. HEENT: Atraumatic, normocephalic. PERRLA. Extraocular muscles were intact. Oral mucosa is pink an d moist. CARDIOVASCULAR: S1, S2 normal. No murmurs, rubs or gallops. LUNGS: Bilateral air entry was equal. No wheezing, no crackles. ABDOMEN: Soft, nontender, no guarding, no rebound tenderness. Bowel sounds are present. EXTREMITIES: Calf tenderness is noted in the right leg more than the left leg, has the pedal edema a nd has good pulses on both the legs. SKIN: No cyanosis, no erythema or bruises were noted in upper and lower extremities and even on the face of the chest. NEUROLOGIC: Cranial nerve examination II-XII intact. No focal deficits were noted at this time. PSYCHIATRIC: No signs of suicidal ideation. No signs of ashley were noted. LABORATORY DATA: Sodium is 139, potassium 4.8, chloride 104, BUN is pending. Troponin 0.037, WBC 12 .3, hemoglobin 13.7, hematocrit is 40.5, platelets 214. ASSESSMENT AND PLAN: 1. Acute massive PE. 2. Acute hypoxic respiratory failure. 3. Non-ST elevation myocardial infarction. 4. History of recent craniotomy 11 days ago, high risk for intracranial bleeds. 5. Morbid obesity. 6. History of chronic obstructive pulmonary disease. 7. History of obstructive sleep apnea. 8. Hypertension. 9. Morbid obesity. PLAN: 1. Plan is to closely monitor this patient in the ICU with a heparin drip with no bolus. This has b een already initiated in the ER per Neurosurgery recommendations. Patient will get a CT of the head now before the heparin drip and then every days CT in the morning to monitor for any intracranial ble eding. 2. The patient is on rebreather mask at this time. ABG has been ordered which is pending. Dr. Castañeda has been consulted from the ER and we will have low threshold to intubate the patient. 3. We will continue DuoNebs every 4 hours and albuterol nebs every 2 hours as needed, and the patien t uses continuous positive airway pressure at home. We will continue with continuous positive airway pressure. 4. Non-ST elevation myocardial infarction. The patient could not be given any aspirin at this time because of high risk for bleeding. Cannot give a beta naima because of low blood pressures. We wi ll order 2D echo to look for any wall motion abnormalities. 5. Morbid obesity. We will closely monitor. 6. Hypertension with low blood pressures. At this time, we will hold off on the blood pressure medi cations. I spent 75 minutes with this patient, of this one hour is critical care time.
[2018-06-30 00:40] VITALS: BMI 53.5
[2018-06-30 00:52] LABS: Hemoglobin 13.2 g/dL (12.0-16.0); Platelet Count 232 thou/uL (130-400)
[2018-06-30 01:14] LABS: Anion Gap 17 mmol/L (10-20); BUN (Urea Nitrogen) 27 mg/dL (9.8-20.1); Calc. Creatinine Clearance 123 mL/min (70-130); Calcium 9.8 mg/dL (7.8-10.44); Carbon Dioxide 22 mmol/L (23-31); Chloride 105 mmol/L (98-107); Estimated GFR-MDRD 63; Glucose 132 mg/dL (80-115); Potassium 4.8 mmol/L (3.5-5.1); Sodium 139 mmol/L (136-145)
[2018-06-30] MEDS: HYDROcodone/Acetaminophen 5/325 mg Tablet PO PRN ×3 (01:14→18:25)
[2018-06-30] MEDS: Sodium Chloride 0.9% 1,000 ML IV SCH ×2 (01:17→04:18)
[2018-06-30 07:01] LABS: #Basophils 0.2 thou/uL (0.0-0.2); #Eosinphils 0.1 thou/uL (0.0-0.7); #Lymphocytes 4.7 thou/uL (1.20-3.40); #Monocytes 0.9 thou/uL (0.11-0.59); #Neutrophils 6.2 thou/uL (1.40-6.50); %Basophils 1.3 % (0.0-1.0); %Eosinophils 0.6 % (0.0-10.0); %Lymphocytes 39.4 % (21.0-51.0); %Monocytes 7.1 % (0.0-10.0); %Neutrophils 51.6 % (42.0-75.0); Hemoglobin 12.5 g/dL (12.0-16.0); Mean Corpuscular HGB CONC 34.4 g/dL (32.0-36.0); Mean Corpuscular Hemoglobin 32.7 pg (27.0-31.0); Mean Corpuscular Volume 94.8 fL (78.0-98.0); Mean Platelet Volume 7.8 fL (7.4-10.4); Platelet Count 228 thou/uL (130-400); RBC Distribution Width 13.3 % (11.5-14.5); Red Blood Cell (RBC) Count 3.81 mill/uL (4.20-5.40)
[2018-06-30 07:10] LABS: PTT 206.9 SEC (22.9-36.1)
--- NOTE | 2018-06-30 08:57 | CT ---
PRELIMINARY REPORT/[facility]/EMERGENTY AFTER-HOURS PROCEDURE CT Head Without Intravenous Contrast EXAM DATE/TIME: 06/30/2018 5:03 AM CLINICAL HISTORY: 63 years old, female; Screening exam; Prior surgery; Surgery date: <1 month; Patient HX: PT on hepari n, PT had craniotomy 10 days ago. TECHNIQUE: Axial computed tomography images of the head/brain without intravenous contrast. COMPARISON: CT Brain WO Con 2018-06-29 23:20 FINDINGS: Brain: There is a decreased size 1.1 x 1 cm right frontal intraparenchymal hematoma. There is stable surrounding right frontal lobe edema. There is no new hemorrhage. Ventricles: There is 5 mm of stable leftward midline shift measured at the third ventricle. No hydroc ephalus. Bones/joints: There are stable surgical changes right frontal craniotomy. Sinuses: Normal as visualized. No acute sinusitis. Mastoid air cells: Normal as visualized. No mastoid effusion. Soft tissues: There is mild right frontal scalp soft tissue swelling, similar to prior. IMPRESSION: 1. There is a decreased size 1.1 x 1 cm right frontal intraparenchymal hematoma. There is stable surr ounding right frontal lobe edema. There is no new hemorrhage. 2. There is 5 mm of stable leftward midline shift measured at the third ventricle. Thank you for allowing us to participate in the care of your patient. Dictated and Authenticated by: Ramsey Kc DO 06/30/2018 6:08 AM Central Time ([place] & [place]) FINAL REPORT HEAD CT WITHOUT CONTRAST: Date: 06/30/18 COMPARISON: 06/29/18. HISTORY: Reevaluate intracranial hemorrhage, recent surgery. FINDINGS: This report is in agreement with the preliminary report given by [facility]. There is evidence of recent ri ght-sided frontal craniotomy with overlying cutaneous kerline in place. Imaged paranasal sinuses/mast oid air cells are well aerated. There is an intra-axial, ill-defined hematoma in the right frontal region, measuring in the 1.1 x 1.1 cm range, slightly less conspicuous than on the 06/29/18 examination. There is surrounding edema, wh ich is not significantly changed. There is mild mass effect on the frontal horn of the right lateral ventricle with mild stable leftward midline shift measuring in the 4-5 mm range. IMPRESSION: Right frontal intra-axial hematoma measuring approximately 1.1 cm in the right frontal region with díaz rrounding edema as detailed above. Mild associated mass effect on right lateral ventricle with mild l eftward midline shift. POS: [facility]
[2018-06-30] MEDS ORDERED: Docusate 100 MG CAP PO SCH (09:00)
[2018-06-30] MEDS: Famotidine/PF 20 mg/2ml Vial SLOW IVP SCH ×2 (10:50→21:45)
[2018-06-30] MEDS ORDERED: PROVENTIL INHALER 6.7 G (200 INHALATIONS) INH PRN ×2 (11:37→11:42)
[2018-06-30] MEDS ORDERED: Ondansetron ODT 4 MG TAB PO PRN (11:37)
[2018-06-30] MEDS ORDERED: cloNIDine 0.1 MG TAB PO PRN (11:39)
[2018-06-30] MEDS ORDERED: hydrALAZINE 20 MG/ML VIAL SLOW IVP PRN (11:39)
[2018-06-30] MEDS ORDERED: CITALOPRAM HYDROBROMIDE PO SCH (11:45)
[2018-06-30] MEDS ORDERED: Triamcinolone 0.1% Cream 15 GM TUBE TOP SCH (12:45)
[2018-06-30] MEDS ORDERED: Triamcinolone 0.1% Cream 30 GM TUBE TOP SCH (12:45)
[2018-06-30] MEDS: Heparin 25,000 units/D5W 500 ML IVPB SCH (13:35)
--- NOTE | 2018-06-30 14:43 | CON ---
DATE OF CONSULTATION: 06/30/2018 This morning, the patient is in ICU. REASON FOR CONSULTATION: Bilateral pulmonary emboli. HISTORY OF PRESENT ILLNESS: This is a morbidly obese 63-year-old female who recently left the hospit al after she presented with acute onset of chest pain. She was here recently for a large right front al meningioma, which was excised. She apparently sees postop. She has a CPAP which she uses. She sees Dr. Booth on a regular basis. She apparently additionally has a history of asthma. She was started on IV heparin last night. CT of the head shows a small frontal hemorrhage which was present at the time of admission. She feels better. Denies any chest pain or shortness of breath. The patient is a former smoker. PAST MEDICAL HISTORY: Morbid obesity, hypertension, depression, bladder issues, sleep apnea, asthma. PAST SURGICAL HISTORY: Otherwise included a recent craniotomy, bilateral knee surgery, breast reduct ion, cholecystectomy, tonsils, and tubal ligation. SOCIAL HISTORY: Former smoker, quit smoking in 2001. No alcohol. FAMILY HISTORY: Unremarkable otherwise. REVIEW OF SYSTEMS: Negative. PHYSICAL EXAMINATION: GENERAL: She appears to be in acute distress. VITAL SIGNS: Saturations 100% on Ventimask. Pulse 105, blood pressure 130/80. CHEST: Reveals no wheezing. CARDIAC: Normal S1, S2, no gallops. ABDOMEN: Soft. No masses. Massive. EXTREMITIES: Trace edema. LABORATORY DATA: White count 12,000, H and H 12 and 36 platelet count 238. The electrolytes are nor mal. Of note, the patient is in no distress. Once again, pulse 110, blood pressure 118/76, sats are 98%, respiration rate 18. IMPRESSION: 1. Pulmonary emboli, bilateral. 2. Recent frontal surgery for meningioma. 3. Asthma. 4. Morbid obesity. 5. Hypertension. PLAN: Continue heparin for the time being. Discussed whether the Lovenox may be slightly better med ication since the PTT is fluctuating. Ultrasound of the leg. She has evidence of worsening frontal hemorrhage. She was requiring vena cava filter. Otherwise, PT and supportive care. I will follow. Critical care, forty-five minutes.
--- NOTE | 2018-06-30 15:36 | PDOC.PN ---
- Subjective Encounter Start Date: 06/30/18 Encounter Start Time: 15:34 Subjective: feels OK. no new symptoms. Breathing easier.no CP - Objective MAR Reviewed: Yes Vital Signs & Weight: Vital Signs (12 hours) Temp Pulse Resp Pulse Ox 06/30/18 12:00 97.8 F 06/30/18 10:47 102 H 19 99 06/30/18 08:06 100 06/30/18 08:00 97.7 F 105 H 26 H 100 06/30/18 07:54 97 06/30/18 07:49 105 H 26 H 97 06/30/18 04:00 98.6 F Most Recent Monitor Data Heart Rate from ECG 106 NIBP 135/83 NIBP BP-Mean 103 Respiration from ECG 20 SpO2 99 I&O: 06/29/18 06/30/18 07/01/18 06:59 06:59 06:59 Intake Total 746 336 Output Total 300 300 Balance 446 36 Result Diagrams: 06/30/18 06:48 06/30/18 00:41 Additional Labs: labs reviewed Radiology Reviewed by me: Yes (Brain CT- slightly smalled ICH) Phys Exam - Physical Examination Constitutional: NAD HEENT: PERRLA, moist MMs, sclera anicteric, oral pharynx no lesions scalp kerline in place Neck: no nodes, no JVD, supple, full ROM Respiratory: no wheezing, no rales, no rhonchi, clear to auscultation bilateral Cardiovascular: RRR, no significant murmur, no rub Gastrointestinal: soft, non-tender, no distention, positive bowel sounds Musculoskeletal: no edema, pulses present Neurological: non-focal, normal sensation, moves all 4 limbs Psychiatric: normal affect, A&O x 3 Dx/Plan (1) Saddle pulmonary embolus Code(s): I26.92 - SADDLE EMBOLUS OF PULMONARY ARTERY W/O ACUTE COR PULMONALE Status: Acute (2) Brain tumor Code(s): D49.6 - NEOPLASM OF UNSPECIFIED BEHAVIOR OF BRAIN Status: Acute Comment: Pathology pending (3) ICH (intracerebral hemorrhage) Code(s): I61.9 - NONTRAUMATIC INTRACEREBRAL HEMORRHAGE, UNSPECIFIED Status: Acute (4) Demand ischemia Code(s): I24.8 - OTHER FORMS OF ACUTE ISCHEMIC HEART DISEASE Status: Acute (5) RAVIN (obstructive sleep apnea) Code(s): G47.33 - OBSTRUCTIVE SLEEP APNEA (ADULT) (PEDIATRIC) Status: Chronic (6) S/P craniotomy Status: Acute (7) HTN (hypertension) Code(s): I10 - ESSENTIAL (PRIMARY) HYPERTENSION Status: Chronic (8) HLD (hyperlipidemia) Code(s): E78.5 - HYPERLIPIDEMIA, UNSPECIFIED Status: Chronic - Plan plan discussed w/ family, PT/OT, respiratory therapy, incentive spirometry, out of bed/ambulate, DVT proph w/SCDs cont Anticoagulation for now. Monitor brain CT daily.H/h daily -: restart home meds. -: supportive care. -: am labs * . Review of Systems - Review of Systems Constitutional: weakness, malaise. negative: fever, chills, sweats, other ENT: negative: Ear Pain, Ear Discharge, Nose Pain, Nose Discharge, Nose Congestion, Mouth Pain, Mouth Swelling, Throat Pain, Throat Swelling, Other Cardiovascular: negative: chest pain, palpitations, orthopnea, paroxysmal nocturnal dyspnea, edema, light headedness, other Gastrointestinal: negative: Nausea, Vomiting, Abdominal Pain, Diarrhea, Constipation, Melena, Hematochezia, Other Musculoskeletal: negative: Neck Pain, Shoulder Pain, Arm Pain, Back Pain, Hand Pain, Leg Pain, Foot Pain, Other Skin: negative: Rash, Lesions, López, Bruising, Other Neurological: negative: Weakness, Numbness, Incoordination, Change in Speech, Confusion, Seizures, Other - Medications/Allergies Allergies/Adverse Reactions: Allergies Allergy/AdvReac Type Severity Reaction Status Date / Time No Known Allergies Allergy Verified 06/12/18 10:38 Medications: Current Medications Acetaminophen (Tylenol) 650 mg PO Q4H PRN PRN Reason: Headache/Fever or Pain Hydrocodone Bitart/Acetaminophen ([place] 5/325) 1 tab PO Q4H PRN PRN Reason: Moderate Pain (4-6) Last Admin: 06/30/18 12:08 Dose: 1 tab Albuterol Sulfate (Ventolin) 2.5 mg NEB Q2H PRN PRN Reason: Wheezing Albuterol Sulfate (Proventil Hfa) 2 puff INH Q4H PRN PRN Reason: Dyspnea/Wheezing/SOB Albuterol/Ipratropium (Duoneb) 3 ml IPPB [id number] [facility] Last Admin: 06/30/18 10:47 Dose: 3 ml Albuterol/Ipratropium (Duoneb) 3 ml NEB [id number] PRN PRN Reason: SOB &/or Wheezing Benzonatate (Tessalon) 100 mg PO QAM [facility] Bisacodyl (Dulcolax) 10 mg PO QAM [facility] Clonidine (Catapres) 0.1 mg PO Q4H PRN PRN Reason: SBP>160 Docusate Sodium (Colace) 100 mg PO BID [facility] Last Admin: 06/30/18 10:49 Dose: 100 mg Docusate Sodium (Colace) 200 mg PO QAM [facility] Famotidine (Pepcid) 20 mg SLOW IVP Q12HR [facility] Last Admin: 06/30/18 10:50 Dose: 20 mg Famotidine (Pepcid) 20 mg PO QAM [facility] Hydralazine HCl (Apresoline) 10 mg SLOW IVP Q4H PRN PRN Reason: SBP>170 Heparin Sodium/Dextrose (Heparin 25,000 Units/D5w 500 Ml) 500 mls @ 0 mls/hr IVPB INF [facility]; Per Protocol PRN Reason: Protocol Last Admin: 06/30/18 13:35 Dose: 500 mls Sodium Chloride (Normal Saline 0.9%) 1,000 mls @ 100 mls/hr IV .Q10H [facility] Last Admin: 06/30/18 04:18 Dose: 1,000 mls Iron/Minerals/Multivitamins (Theragran M) 1 tab PO DAILY [facility] Lisinopril (Zestril) 20 mg PO QAM [facility] Lovastatin (Mevacor) 20 mg PO HS [facility] Mometasone Furoate/Formoterol Fumar (Dulera 200 Mcg/5 Mcg Inhaler) 2 puff INH DAILY-RT [facility] Multivitamins/Zinc (Stress 600 With Zinc) 1 tab PO DAILY [facility] Ondansetron HCl (Zofran) 4 mg IVP Q6H PRN PRN Reason: Nausea/Vomiting Ondansetron HCl (Zofran Odt) 4 mg PO Q6H PRN PRN Reason: Nausea Pantoprazole Sodium (Protonix) 40 mg PO 2100 [facility] Citalopram 20 Mg Tab 0 each PO HS [facility] Citalopram 40 Mg (Tablet) 0 each PO QAM [facility] Phenytoin Sodium (Dilantin Er) 300 mg PO HS [facility] Sodium Chloride (Flush - Normal Saline) 10 ml IVF Q12HR [facility] Last Admin: 06/30/18 10:50 Dose: 10 ml Sodium Chloride (Flush - Normal Saline) 10 ml IVF PRN PRN PRN Reason: Saline Flush Triamcinolone Acetonide (Kenalog 0.1% Cream) 0 gm TOP ASDIR [facility] Trospium (Trospium) 20 mg PO BID [facility]
[2018-06-30 17:52] LABS: PTT 132.8 SEC (22.9-36.1)
--- NOTE | 2018-06-30 18:25 | ULT ---
VENOUS DUPLEX SONOGRAM BILATERAL LOWER EXTREMITY: HISTORY: Pulmonary embolus. FINDINGS: Each common femoral vein and greater saphenous junction were evaluated, along with each femoral, deep femoral, popliteal, and posterior tibial vein. There is color and spectral Doppler flow, compressio n, and augmentation. IMPRESSION: No sonographic evidence of deep venous thrombosis within either lower extremity. POS: [facility]
[2018-06-30] MEDS ORDERED: Diltiazem 125 MG in Sodium Chloride 0.9% 100 ML IVPB SCH (19:00)
[2018-06-30] MEDS: Lovastatin 20 MG TAB PO SCH (22:09)
[2018-06-30] MEDS: Citalopram 20 MG TAB PO SCH (22:10)
[2018-06-30] MEDS: TROSPIUM 20 MG TABLET PO SCH (22:48)
[2018-07-01] MEDS: Sodium Chloride 0.9% 1,000 ML IV SCH ×3 (02:16→17:10)
[2018-07-01] MEDS: Heparin 25,000 units/D5W 500 ML IVPB SCH (04:11)
[2018-07-01 05:56] LABS: #Basophils 0.2 thou/uL (0.0-0.2); #Eosinphils 0.1 thou/uL (0.0-0.7); #Lymphocytes 4.9 thou/uL (1.20-3.40); #Monocytes 1.1 thou/uL (0.11-0.59); #Neutrophils 6.8 thou/uL (1.40-6.50); %Basophils 1.3 % (0.0-1.0); %Eosinophils 1.1 % (0.0-10.0); %Lymphocytes 37.5 % (21.0-51.0); %Monocytes 8.1 % (0.0-10.0); %Neutrophils 52.1 % (42.0-75.0); Hemoglobin 12.2 g/dL (12.0-16.0); Mean Corpuscular Hemoglobin 32.6 pg (27.0-31.0); Mean Corpuscular Volume 95.7 fL (78.0-98.0); Mean Platelet Volume 7.9 fL (7.4-10.4); Platelet Count 225 thou/uL (130-400); RBC Distribution Width 13.4 % (11.5-14.5); Red Blood Cell (RBC) Count 3.75 mill/uL (4.20-5.40); White Blood Cell (WBC) Count 13.1 thou/uL (4.8-10.8)
[2018-07-01] MEDS: HYDROcodone/Acetaminophen 5/325 mg Tablet PO PRN ×3 (06:07→17:20)
[2018-07-01 06:16] LABS: Anion Gap 15 mmol/L (10-20); BUN (Urea Nitrogen) 22 mg/dL (9.8-20.1); Calc. Creatinine Clearance 181 mL/min (70-130); Calcium 9.5 mg/dL (7.8-10.44); Carbon Dioxide 21 mmol/L (23-31); Chloride 104 mmol/L (98-107); Estimated GFR-MDRD Greater than 90; Glucose 133 mg/dL (80-115); Potassium 4.1 mmol/L (3.5-5.1); Sodium 136 mmol/L (136-145)
[2018-07-01] MEDS: Mometasone/Formoterol 120 PUFF INHALER INH SCH (07:07)
[2018-07-01 07:37] LABS: PTT 161.2 SEC (22.9-36.1)
--- NOTE | 2018-07-01 08:20 | PRG ---
DATE OF SERVICE: 07/01/2018 This morning she has less shortness of breath, less headache. PHYSICAL EXAMINATION: VITAL SIGNS: Blood pressure is 124/84, sats are 98 on 2 liters, temperature 97, pulse 94. She says she is less short of breath. CHEST: Chest revealed decreased breath sounds, no wheezing. CARDIAC: Normal S1, S2, no gallops. ABDOMEN: Soft. PTT 161. She is on a heparin drip. Platelet count 225. White count 13,000. She is scheduled to receive a CT of the head to assess her right frontal craniotomy and localized ble ed. PLAN: Continue heparin. I am more than likely going to switch her over to Lovenox today. Repeat CT of the head. Aggressive PT, supportive care. We will follow.
[2018-07-01] MEDS: Enoxaparin Sodium 120 MG/0.8 ML SYRINGE SC SCH ×2 (08:33→21:27)
[2018-07-01] MEDS: Benzonatate 100 MG CAP PO SCH (08:37)
[2018-07-01] MEDS: Docusate 100 MG CAP PO SCH (08:38)
[2018-07-01] MEDS: Famotidine 20 MG TAB PO SCH ×3 (08:38→21:29)
[2018-07-01] MEDS: Bisacodyl 5 MG TAB PO SCH (08:42)
[2018-07-01] MEDS: Lisinopril 20 MG TAB PO SCH (08:46)
[2018-07-01] MEDS: Multivitamin W/ Minerals 1 TAB PO SCH (08:46)
[2018-07-01] MEDS: TROSPIUM 20 MG TABLET PO SCH ×2 (08:47→21:30)
[2018-07-01] MEDS: Stress 600 With Zinc 1 TAB PO SCH (08:47)
[2018-07-01] MEDS: CITALOPRAM 40 MG TABLET PO SCH (08:48)
[2018-07-01] MEDS ORDERED: Citalopram 10 MG TAB PO SCH (09:00)
[2018-07-01] MEDS ORDERED: Vit B12/Folic Acid/B6/Aa No.15 [Glycotrol Capsule] 1 CAP PO SCH (09:00)
--- NOTE | 2018-07-01 11:35 | CT ---
CT HEAD NONCONTRAST: HISTORY: Tumor removal. Hemorrhage. Followup. COMPARISON: 06/30/2018 FINDINGS: Postoperative changes, right frontal lobe, are apparent. Small, irregular shaped blood collection ne ar the haywood-white junction, surrounded by edema, is unchanged in size and appearance from the prior s tudy. Slight effacement of the frontal horn, right lateral ventricle, and minimal leftward shift of the septum pellucidum are unchanged. No new areas of hemorrhage or edema are evident. IMPRESSION: Stable postoperative appearance. No new abnormalities demonstrated. POS: [facility]
--- NOTE | 2018-07-01 16:01 | CON ---
DATE OF CONSULTATION: 07/01/2018 Ms. Smith is a 63-year-old woman who is now roughly 10 days postop right frontal craniotomy with menin gioma resection. She was admitted overnight 2 nights ago for a large saddle embolus PE with hypoxia and hypotension. This morning, she is at bedside in the ICU in a chair and mostly comfortable. She feels that her dyspnea has improved. Heart rate is elevated, but blood pressure sits around 100 syst olic, which seems to be appropriate. She has been started on a heparin drip. Her PTT was significan tly elevated earlier this week at 206 and most recently it was 161 this morning at around 0500. Dr. Castañeda would like to move on to Lovenox, which I think is appropriate. Her repeat head CT again demons trates stable exam to her admission CT of the head, which shows a small area of right frontal hyperde nsity, likely postoperative hemorrhage related to surgery. This will need to continue to be monitore d while she is on anticoagulants, which she definitely needs to be on for her pulmonary embolism. I have answered all the family's questions at bedside.
--- NOTE | 2018-07-01 16:54 | PDOC.PN ---
- Subjective Encounter Start Date: 07/01/18 Encounter Start Time: 16:52 Subjective: feels much better today -: had a-fib w RVR yesterday evening requiring cardiazem drip -: no SOB this am.no neurological changes - Objective MAR Reviewed: Yes Vital Signs & Weight: Vital Signs (12 hours) Temp Pulse Pulse Pulse Resp BP BP 07/01/18 15:51 95 19 07/01/18 11:00 98.0 F 93 102 H 107/74 07/01/18 10:56 97 19 07/01/18 08:46 113/78 07/01/18 08:00 97.9 F 94 17 07/01/18 07:06 94 17 07/01/18 07:00 97.9 F BP Pulse Ox Pulse Ox Pulse Ox 07/01/18 15:51 97 07/01/18 11:00 141/61 H 94 L 95 07/01/18 10:56 96 07/01/18 08:46 07/01/18 08:00 96 07/01/18 07:06 98 07/01/18 07:00 Most Recent Monitor Data Heart Rate from ECG 100 NIBP 93/42 NIBP BP-Mean 49 Respiration from ECG 27 SpO2 96 I&O: 06/30/18 07/01/18 07/02/18 06:59 06:59 06:59 Intake Total 746 3374 1249 Output Total 496 003 7671 Balance 446 2474 -301 Result Diagrams: 07/01/18 05:22 07/01/18 05:22 Additional Labs: labs reviewed Phys Exam - Physical Examination Constitutional: NAD HEENT: PERRLA, moist MMs, sclera anicteric, oral pharynx no lesions Respiratory: no wheezing, no rales, no rhonchi, clear to auscultation bilateral Cardiovascular: RRR, no significant murmur Gastrointestinal: soft, non-tender, no distention, positive bowel sounds Musculoskeletal: no edema, pulses present Neurological: non-focal, normal sensation, moves all 4 limbs Psychiatric: normal affect, A&O x 3 Skin: no rash Dx/Plan (1) Atrial fibrillation with RVR Code(s): I48.91 - UNSPECIFIED ATRIAL FIBRILLATION Status: Acute Comment: rate controlled now on PO (2) Saddle pulmonary embolus Code(s): I26.92 - SADDLE EMBOLUS OF PULMONARY ARTERY W/O ACUTE COR PULMONALE Status: Acute Qualifiers: Chronicity: acute (3) Brain tumor Code(s): D49.6 - NEOPLASM OF UNSPECIFIED BEHAVIOR OF BRAIN Status: Acute Comment: Pathology shows Meningioma (4) ICH (intracerebral hemorrhage) Code(s): I61.9 - NONTRAUMATIC INTRACEREBRAL HEMORRHAGE, UNSPECIFIED Status: Acute Comment: stable (5) Demand ischemia Code(s): I24.8 - OTHER FORMS OF ACUTE ISCHEMIC HEART DISEASE Status: Acute (6) RAVIN (obstructive sleep apnea) Code(s): G47.33 - OBSTRUCTIVE SLEEP APNEA (ADULT) (PEDIATRIC) Status: Chronic (7) S/P craniotomy Status: Acute (8) HTN (hypertension) Code(s): I10 - ESSENTIAL (PRIMARY) HYPERTENSION Status: Chronic (9) HLD (hyperlipidemia) Code(s): E78.5 - HYPERLIPIDEMIA, UNSPECIFIED Status: Chronic - Plan plan discussed w/ family, PT/OT, respiratory therapy, incentive spirometry, out of bed/ambulate, DVT proph w/SCDs Cont anticoagulation. Lovenox per PCCM -: HD stable. -: NS following for Recent Brain tumor resection & small resultant bleed -: Cardiology consult for A-fib.new .ECHO shows mild cardiomyopathy -: am labs * . Review of Systems - Review of Systems Constitutional: weakness, malaise. negative: fever, chills, sweats, other ENT: negative: Ear Pain, Ear Discharge, Nose Pain, Nose Discharge, Nose Congestion, Mouth Pain, Mouth Swelling, Throat Pain, Throat Swelling, Other Respiratory: negative: Cough, Dry, Shortness of Breath, Hemoptysis, SOB with Excertion, Pleuritic Pain, Sputum, Wheezing Cardiovascular: negative: chest pain, palpitations, orthopnea, paroxysmal nocturnal dyspnea, edema, light headedness, other Gastrointestinal: negative: Nausea, Vomiting, Abdominal Pain, Diarrhea, Constipation, Melena, Hematochezia, Other Genitourinary: negative: Dysuria, Frequency, Incontinence, Hematuria, Retention , Other Musculoskeletal: negative: Neck Pain, Shoulder Pain, Arm Pain, Back Pain, Hand Pain, Leg Pain, Foot Pain, Other Skin: negative: Rash, Lesions, López, Bruising, Other Neurological: negative: Weakness, Numbness, Incoordination, Change in Speech, Confusion, Seizures, Other - Medications/Allergies Allergies/Adverse Reactions: Allergies Allergy/AdvReac Type Severity Reaction Status Date / Time No Known Allergies Allergy Verified 06/12/18 10:38 Medications: Current Medications Acetaminophen (Tylenol) 650 mg PO Q4H PRN PRN Reason: Headache/Fever or Pain Hydrocodone Bitart/Acetaminophen ([place] 5/325) 2 tab PO Q4H PRN PRN Reason: Severe Pain (7-10) Hydrocodone Bitart/Acetaminophen ([place] 5/325) 1 tab PO Q4H PRN PRN Reason: Moderate Pain (4-6) Last Admin: 07/01/18 14:48 Dose: 1 tab Albuterol Sulfate (Ventolin) 2.5 mg NEB Q2H PRN PRN Reason: Wheezing Albuterol Sulfate (Proventil Hfa) 2 puff INH Q4H PRN PRN Reason: Dyspnea/Wheezing/SOB Albuterol/Ipratropium (Duoneb) 3 ml NEB [id number] PRN PRN Reason: SOB &/or Wheezing Albuterol/Ipratropium (Duoneb) 3 ml NEB [id number] [facility] Last Admin: 07/01/18 15:51 Dose: 3 ml Benzonatate (Tessalon) 100 mg PO QAM [facility] Last Admin: 07/01/18 08:37 Dose: Not Given Bisacodyl (Dulcolax) 10 mg PO QAM [facility] Last Admin: 07/01/18 08:42 Dose: Not Given Clonidine (Catapres) 0.1 mg PO Q4H PRN PRN Reason: SBP>160 Diltiazem HCl (Cardizem) 30 mg PO Q6HR [facility] Last Admin: 07/01/18 12:21 Dose: 30 mg Docusate Sodium (Colace) 200 mg PO QAM [facility] Last Admin: 07/01/18 08:38 Dose: Not Given Enoxaparin Sodium (Lovenox) 120 mg SC 0900,2100 [facility] Last Admin: 07/01/18 08:33 Dose: Not Given Famotidine (Pepcid) 20 mg PO BID [facility] Hydralazine HCl (Apresoline) 10 mg SLOW IVP Q4H PRN PRN Reason: SBP>170 Sodium Chloride (Normal Saline 0.9%) 1,000 mls @ 100 mls/hr IV .Q10H [facility] Last Admin: 07/01/18 07:23 Dose: Not Given Iron/Minerals/Multivitamins (Theragran M) 1 tab PO DAILY [facility] Last Admin: 07/01/18 08:46 Dose: 1 tab Lisinopril (Zestril) 20 mg PO QAM [facility] Last Admin: 07/01/18 08:46 Dose: 20 mg Lovastatin (Mevacor) 20 mg PO HS [facility] Last Admin: 06/30/18 22:09 Dose: 20 mg Mometasone Furoate/Formoterol Fumar (Dulera 200 Mcg/5 Mcg Inhaler) 2 puff INH DAILY-RT [facility] Last Admin: 07/01/18 07:07 Dose: 2 puff Multivitamins/Zinc (Stress 600 With Zinc) 1 tab PO DAILY [facility] Last Admin: 07/01/18 08:47 Dose: 1 tab Ondansetron HCl (Zofran) 4 mg IVP Q6H PRN PRN Reason: Nausea/Vomiting Ondansetron HCl (Zofran Odt) 4 mg PO Q6H PRN PRN Reason: Nausea Last Admin: 07/01/18 02:17 Dose: 4 mg Citalopram 20 Mg Tab 0 each PO [facility] Last Admin: 06/30/18 22:10 Dose: 1 each Citalopram 40 Mg (Tablet) 0 each PO QAM [facility] Last Admin: 07/01/18 08:48 Dose: 1 each Phenytoin Sodium (Dilantin Er) 300 mg PO [facility] Last Admin: 06/30/18 22:09 Dose: 300 mg Sodium Chloride (Flush - Normal Saline) 10 ml IVF Q12HR [facility] Last Admin: 07/01/18 08:48 Dose: 10 ml Sodium Chloride (Flush - Normal Saline) 10 ml IVF PRN PRN PRN Reason: Saline Flush Triamcinolone Acetonide (Kenalog 0.1% Cream) 0 gm TOP ASDIR [facility] Trospium (Trospium) 20 mg PO BID [facility] Last Admin: 07/01/18 08:47 Dose: 20 mg
--- NOTE | 2018-07-01 17:28 | PRG ---
DATE OF SERVICE: 07/01/2018 SUBJECTIVE: Ms. Smith is known to me for right frontal craniotomy with resection of a WHO grade I men ingioma performed almost 2 weeks ago. She returned to the hospital a few days ago with chest pain an d shortness of breath. She underwent diagnostic imaging, which revealed the presence of a large pulm onary embolus. She has been in the ICU since that time recovering and receiving anticoagulant therap y. She has had head CT performed, which shows what I believe to be residual blood products from her surgery. I had a lengthy discussion with her today regarding the benefits and risks of anticoagulation in the setting of a recent brain surgery. I have discussed with her that I believe it is important to err o n the side of anticoagulation for the purposes of treatment of her pulmonary embolus. Neurologically , she is at baseline and has a normal exam. She does report a mild degree of headache, which is noth ing particularly new for her. The Neurosurgical service will continue to follow along during her hos pitalization.
--- NOTE | 2018-07-01 20:30 | CON ---
DATE OF CONSULTATION: 07/01/2018 HISTORY: Amelia Smith is a 63-year-old white female who was initially admitted on 06/20/2018 and had resection of a right frontal meningioma. Her postoperative course was essentially unremarkable and she was discharged on . She then returned on 06/29 after having onset at 8:00 p.m. of chest pain, shortness of breath and nausea. She states that her chest pain was pleuritic in nature. She had oxygen saturations in the 80s-90s and was hypotensive. She underwent CT angiogram which revealed a massive pulmonary embolism. Echocardiogram has been performed which shows some right ventricular dysfunction. Lower extremity venous ultrasound was performed which did not reveal any deep venous thrombosis. She has since been placed on intravenous heparin with daily CTs to make sure that she is not having significant intracranial bleed. At the present time, she denies any shortness of breath or chest discomfort. She continued to remain somewhat hypotensive. PAST MEDICAL HISTORY: Hypertension, hypercholesterolemia, GERD, anxiety, obesity, obstructive sleep apnea, and asthma. HOME MEDICATIONS: (Dosage is not listed), albuterol 2 puffs p.r.n., Dulcolax 2 tablets q.a.m., citalopram 1 tablet q.a.m., stool softener 2 capsules q.a.m., famotidine q.a.m., Advair 2 puffs q.a.m., ipratropium nasal spray, lisinopril q.a.m., lovastatin q.p.m., multivitamin daily, Zofran p.r.n., Protonix q.a.m., Dilantin 300 mg at bedtime, again the dosages of these medications are not listed. ALLERGIES: None. SOCIAL HISTORY: She does not smoke or drink. REVIEW OF SYSTEMS: Twelve-point review of systems is otherwise unremarkable. PHYSICAL EXAMINATION: VITAL SIGNS: Blood pressure 94/62, pulse of 100. HEENT: PERRL. NECK: Supple. CHEST: Clear. CARDIAC: S1, S2 normal, without any S3, S4 or murmurs. ABDOMEN: Normal bowel sounds, without tenderness, organomegaly. The abdomen is obese. EXTREMITIES: Revealed no clubbing, cyanosis or edema. NEUROLOGIC: Grossly intact. SKIN: Warm and dry. LABORATORY DATA: Admission EKG reveals sinus tachycardia with right bundle- branch block. There are frequent PVCs. Another EKG, probably also has sinus tachycardia, although the R to R interval is somewhat irregular and certainly may be due to atrial fibrillation. However, on the monitor since being admitted , she has been in sinus rhythm with PVCs. Echocardiogram revealed the study to be technically difficult. Ejection fraction was 40-45%. There is severely enlarged right ventricle, markedly enlarged right atrium. There was moderate to severe tricuspid regurgitation with elevated right ventricular systolic pressure. Hemoglobin 12.2, hematocrit 35.8, white count 13,100, platelets 225, 000. INR was 0.9 on 06/12, PTT up 161.2, sodium 136, potassium 4.1, chloride 104, carbon dioxide 21, BUN 22, creatinine 0.62. Troponin I 0.037. IMPRESSION: 1. Massive pulmonary embolism. No evidence of DVT on lower extremity venous ultrasound. 2. Status post resection of right frontal meningioma. 3. Probable sinus tachycardia at the time of admission, although atrial fibrillation can certainly not be ruled out. However, during the remainder of her stay, she has definitely been in sinus rhythm with occasional PVCs. 4. Right ventricular overload secondary to pulmonary embolism. 5. Mild left ventricular systolic dysfunction with ejection fraction of 40-45%. 6. Hypertension. 7. Hypercholesterolemia. 8. Gastroesophageal reflux disease. 9. Obstructive sleep apnea. 10. Asthma. 11. Obesity. PLAN: Patient will continue to be anticoagulated. There is discussion about switching to Lovenox since she has had some swings in her PTT. Once her blood pressure is improved, consideration should be given to a beta naima such as carvedilol with her left ventricular dysfunction. LANGD
[2018-07-01] MEDS: Citalopram 20 MG TAB PO SCH (21:29)
[2018-07-01] MEDS: Lovastatin 20 MG TAB PO SCH (21:29)
[2018-07-02] MEDS: Mometasone/Formoterol 120 PUFF INHALER INH SCH (07:08)
--- NOTE | 2018-07-02 08:37 | PRG ---
DATE OF SERVICE: 07/02/2018 This morning she is better, less short of breath, no headaches. PHYSICAL EXAMINATION: VITAL SIGNS: Sats are 90% on 2 liters, pulse 86, blood pressure 94/63. CHEST: Chest reveals decreased breath sounds, no wheezing. CARDIAC: Normal S1, S2. ABDOMEN: Soft, no masses. A repeat CT of the head yesterday shows the stable postop right frontal hemorrhage. IMPRESSION: 1. Pulmonary embolus. 2. Morbid obesity. 3. Sleep apnea. 4. Status post craniotomy. PLAN: Continue Lovenox for another 24 hours. Continue aggressive PT. Will switch her over to Eliqu is tomorrow following the CT report.
[2018-07-02] MEDS: Docusate 100 MG CAP PO SCH (10:17)
[2018-07-02] MEDS: Benzonatate 100 MG CAP PO SCH (10:17)
[2018-07-02] MEDS: Lisinopril 20 MG TAB PO SCH (10:18)
[2018-07-02] MEDS: Multivitamin W/ Minerals 1 TAB PO SCH (10:18)
[2018-07-02] MEDS: Bisacodyl 5 MG TAB PO SCH (10:18)
[2018-07-02] MEDS: Famotidine 20 MG TAB PO SCH ×2 (10:19→20:19)
[2018-07-02] MEDS: Enoxaparin Sodium 120 MG/0.8 ML SYRINGE SC SCH ×2 (10:19→20:19)
[2018-07-02] MEDS: Dexamethasone 4 MG TAB PO SCH ×3 (10:19→20:19)
[2018-07-02] MEDS: CITALOPRAM 40 MG TABLET PO SCH (10:19)
[2018-07-02] MEDS: TROSPIUM 20 MG TABLET PO SCH ×2 (10:20→20:21)
[2018-07-02] MEDS: Stress 600 With Zinc 1 TAB PO SCH (10:20)
--- NOTE | 2018-07-02 12:01 | PRG ---
DATE OF SERVICE: 07/02/2018 Ms. Smith is doing well this morning. She is resting in bed. She was up in the chair yesterday for roughly an hour and tolerated that well. She is not on her Decadron at the moment. We will restart her Decadron 3 times daily. Incision continues to look well approximated. No drainage or erythema s urrounding, external kerline and sutures intact. We will plan to remove all of these on Saturday as lo ng she continues to do well. She is free to be transitioned to IMCU at any point from our opinion.
[2018-07-02] MEDS: HYDROcodone/Acetaminophen 5/325 mg Tablet PO PRN ×2 (13:14→20:22)
--- NOTE | 2018-07-02 14:18 | PDOC.PN ---
- Subjective Encounter Start Date: 07/02/18 Encounter Start Time: 14:17 Subjective: feels much better.no palpitations,Chest pain/SOB -: walked a little w PT .no N/V/d/AP -: no muscle weakness etc - Objective MAR Reviewed: Yes Vital Signs & Weight: Vital Signs (12 hours) Temp Pulse Pulse Pulse Resp BP BP 07/02/18 12:00 98.6 F 07/02/18 11:09 92 17 07/02/18 10:18 115/66 07/02/18 08:47 115 H 96 105/61 07/02/18 08:00 98.2 F 95 24 H 07/02/18 07:12 07/02/18 07:09 86 20 07/02/18 04:00 98.2 F BP Pulse Ox Pulse Ox Pulse Ox 07/02/18 12:00 07/02/18 11:09 07/02/18 10:18 07/02/18 08:47 123/61 93 L 92 L 07/02/18 08:00 95 07/02/18 07:12 94 L 07/02/18 07:09 94 L 07/02/18 04:00 Most Recent Monitor Data Heart Rate from ECG 99 NIBP 105/56 NIBP BP-Mean 90 Respiration from ECG 25 SpO2 93 I&O: 07/01/18 07/02/18 07/03/18 06:59 06:59 06:59 Intake Total 3374 2492 330 Output Total 900 1550 400 Balance 2474 942 -70 Result Diagrams: 07/01/18 05:22 07/01/18 05:22 Additional Labs: labs reviewed Phys Exam - Physical Examination Constitutional: NAD HEENT: PERRLA, moist MMs, sclera anicteric, oral pharynx no lesions Neck: no nodes, no JVD, supple, full ROM Respiratory: no wheezing, no rales, no rhonchi, clear to auscultation bilateral Cardiovascular: RRR, no significant murmur Gastrointestinal: soft, non-tender, no distention, positive bowel sounds Musculoskeletal: no edema, pulses present Neurological: non-focal, normal sensation, moves all 4 limbs Psychiatric: normal affect, A&O x 3 Skin: no rash Dx/Plan (1) Atrial fibrillation with RVR Code(s): I48.91 - UNSPECIFIED ATRIAL FIBRILLATION Status: Acute Comment: rate controlled now on PO cardiazem. (2) Saddle pulmonary embolus Code(s): I26.92 - SADDLE EMBOLUS OF PULMONARY ARTERY W/O ACUTE COR PULMONALE Status: Acute Qualifiers: Chronicity: acute (3) Brain tumor Code(s): D49.6 - NEOPLASM OF UNSPECIFIED BEHAVIOR OF BRAIN Status: Acute Comment: Pathology shows Meningioma.S/P removal.On decadron (4) ICH (intracerebral hemorrhage) Code(s): I61.9 - NONTRAUMATIC INTRACEREBRAL HEMORRHAGE, UNSPECIFIED Status: Acute Comment: stable (5) Demand ischemia Code(s): I24.8 - OTHER FORMS OF ACUTE ISCHEMIC HEART DISEASE Status: Acute (6) RAVIN (obstructive sleep apnea) Code(s): G47.33 - OBSTRUCTIVE SLEEP APNEA (ADULT) (PEDIATRIC) Status: Chronic (7) S/P craniotomy Status: Acute (8) HTN (hypertension) Code(s): I10 - ESSENTIAL (PRIMARY) HYPERTENSION Status: Chronic (9) HLD (hyperlipidemia) Code(s): E78.5 - HYPERLIPIDEMIA, UNSPECIFIED Status: Chronic - Plan PT/OT, respiratory therapy, incentive spirometry, out of bed/ambulate, DVT proph w/SCDs cont BID lovenox for now.monitor H/H -: HR controlled. Add BB if BP improves.EF low at 45% -: cont supportive care. -: NS,PCCM & cardiology following. -: Ok to transition out of CCU.am labs * . Review of Systems - Review of Systems Constitutional: weakness, malaise. negative: fever, chills, sweats, other Respiratory: negative: Cough, Dry, Shortness of Breath, Hemoptysis, SOB with Excertion, Pleuritic Pain, Sputum, Wheezing Cardiovascular: negative: chest pain, palpitations, orthopnea, paroxysmal nocturnal dyspnea, edema, light headedness, other Gastrointestinal: negative: Nausea, Vomiting, Abdominal Pain, Diarrhea, Constipation, Melena, Hematochezia, Other Genitourinary: negative: Dysuria, Frequency, Incontinence, Hematuria, Retention , Other Musculoskeletal: negative: Neck Pain, Shoulder Pain, Arm Pain, Back Pain, Hand Pain, Leg Pain, Foot Pain, Other Skin: negative: Rash, Lesions, López, Bruising, Other Neurological: negative: Weakness, Numbness, Incoordination, Change in Speech, Confusion, Seizures, Other - Medications/Allergies Allergies/Adverse Reactions: Allergies Allergy/AdvReac Type Severity Reaction Status Date / Time No Known Allergies Allergy Verified 06/12/18 10:38 Medications: Current Medications Acetaminophen (Tylenol) 650 mg PO Q4H PRN PRN Reason: Headache/Fever or Pain Hydrocodone Bitart/Acetaminophen ([place] 5/325) 2 tab PO Q4H PRN PRN Reason: Severe Pain (7-10) Last Admin: 07/02/18 13:14 Dose: 2 tab Hydrocodone Bitart/Acetaminophen ([place] 5/325) 1 tab PO Q4H PRN PRN Reason: Moderate Pain (4-6) Last Admin: 07/01/18 17:20 Dose: 1 tab Albuterol Sulfate (Ventolin) 2.5 mg NEB Q2H PRN PRN Reason: Wheezing Albuterol Sulfate (Proventil Hfa) 2 puff INH Q4H PRN PRN Reason: Dyspnea/Wheezing/SOB Albuterol/Ipratropium (Duoneb) 3 ml NEB [id number] PRN PRN Reason: SOB &/or Wheezing Albuterol/Ipratropium (Duoneb) 3 ml NEB [id number] SCH Last Admin: 07/02/18 11:09 Dose: 3 ml [facility]atate ([facility]essalon) [facility] Last Admin: 07/02/18 10:17 Dose: 100 mg Bisacodyl (Dulcolax) 10 mg PO QAM [facility] Last Admin: 07/02/18 10:18 Dose: 10 mg Clonidine (Catapres) 0.1 mg PO Q4H PRN PRN Reason: SBP>160 Dexamethasone (Decadron) 4 mg PO TID [facility] Last Admin: 07/02/18 13:15 Dose: 4 mg Diltiazem HCl (Cardizem) 30 mg PO Q6HR [facility] Last Admin: 07/02/18 10:18 Dose: 30 mg Docusate Sodium (Colace) 200 mg PO QAM [facility] Last Admin: 07/02/18 10:17 Dose: 200 mg Enoxaparin Sodium (Lovenox) 120 mg SC 0900,2100 [facility] Last Admin: 07/02/18 10:19 Dose: 120 mg Famotidine (Pepcid) 20 mg PO BID [facility] Last Admin: 07/02/18 10:19 Dose: 20 mg Hydralazine HCl (Apresoline) 10 mg SLOW IVP Q4H PRN PRN Reason: SBP>170 Iron/Minerals/Multivitamins (Theragran M) 1 tab PO DAILY [facility] Last Admin: 07/02/18 10:18 Dose: 1 tab Lisinopril (Zestril) 20 mg PO QAM [facility] Last Admin: 07/02/18 10:18 Dose: 20 mg Lovastatin (Mevacor) 20 mg PO HS [facility] Last Admin: 07/01/18 21:29 Dose: 20 mg Mometasone Furoate/Formoterol Fumar (Dulera 200 Mcg/5 Mcg Inhaler) 2 puff INH DAILY-RT [facility] Last Admin: 07/02/18 07:08 Dose: 2 puff Multivitamins/Zinc (Stress 600 With Zinc) 1 tab PO DAILY [facility] Last Admin: 07/02/18 10:20 Dose: 1 tab Ondansetron HCl (Zofran) 4 mg IVP Q6H PRN PRN Reason: Nausea/Vomiting Ondansetron HCl (Zofran Odt) 4 mg PO Q6H PRN PRN Reason: Nausea Last Admin: 07/01/18 02:17 Dose: 4 mg Citalopram 20 Mg Tab 0 each PO HS [facility] Last Admin: 07/01/18 21:29 Dose: 1 each Citalopram 40 Mg (Tablet) 0 each PO QAM [facility] Last Admin: 07/02/18 10:19 Dose: 1 each Phenytoin Sodium (Dilantin Er) 300 mg PO HS [facility] Last Admin: 07/01/18 21:28 Dose: 300 mg Sodium Chloride (Flush - Normal Saline) 10 ml IVF Q12HR [facility] Last Admin: 07/02/18 10:20 Dose: 10 ml Sodium Chloride (Flush - Normal Saline) 10 ml IVF PRN PRN PRN Reason: Saline Flush Triamcinolone Acetonide (Kenalog 0.1% Cream) 0 gm TOP ASDIR [facility] Trospium (Trospium) 20 mg PO BID [facility] Last Admin: 07/02/18 10:20 Dose: 20 mg
[2018-07-02] MEDS: Citalopram 20 MG TAB PO SCH (20:20)
[2018-07-02] MEDS ORDERED: Digoxin 0.5 MG/2 ML AMP SLOW IVP SCH (21:00)
[2018-07-02] MEDS: Lovastatin 20 MG TAB PO SCH (21:16)
[2018-07-02] MEDS ORDERED: Diltiazem HCl 125 MG, Admixture Fee 1 EACH in Sodium Chloride 0.9% 100 ML IVPB SCH (22:45)
[2018-07-03] MEDS: Mometasone/Formoterol 120 PUFF INHALER INH SCH (07:02)
[2018-07-03 08:39] LABS: Hemoglobin 11.4 g/dL (12.0-16.0)
[2018-07-03] MEDS: Famotidine 20 MG TAB PO SCH ×2 (09:15→20:34)
[2018-07-03] MEDS: Dexamethasone 4 MG TAB PO SCH ×3 (09:15→20:34)
[2018-07-03] MEDS: Stress 600 With Zinc 1 TAB PO SCH (09:15)
[2018-07-03] MEDS: TROSPIUM 20 MG TABLET PO SCH ×2 (09:15→20:35)
[2018-07-03] MEDS: CITALOPRAM 40 MG TABLET PO SCH (09:16)
[2018-07-03] MEDS: Docusate 100 MG CAP PO SCH (09:16)
[2018-07-03] MEDS: Lisinopril 20 MG TAB PO SCH (09:16)
[2018-07-03] MEDS: Multivitamin W/ Minerals 1 TAB PO SCH (09:17)
[2018-07-03] MEDS: Enoxaparin Sodium 120 MG/0.8 ML SYRINGE SC SCH (09:19)
[2018-07-03] MEDS: Bisacodyl 5 MG TAB PO SCH (09:20)
[2018-07-03] MEDS: Benzonatate 100 MG CAP PO SCH (09:22)
--- NOTE | 2018-07-03 11:12 | PRG ---
DATE OF SERVICE: 07/03/2018 SUBJECTIVE: Ms. Smith continues to recover in the hospital following the development of pulmonary emb olus. She is currently undergoing anticoagulation. She had a series of head CTs, which show a chester l anticipated evolution of what I believe is postoperative blood products within the right frontal lo be. Neurologically, she is intact and at baseline. From a neurosurgical perspective, I do not believe we need to continue with frequent CT scans unless there is a change neurologically. Our plan is to remove ekrline and sutures from her incision site t omorrow. I will defer to our Medicine colleagues appropriate plans with respect to anticoagulation. I have explained to Ms. Smith that there is some risk for hemorrhage, but the pulmonary embolus is a greater priority at this point in time. We will continue to follow along loosely.
--- NOTE | 2018-07-03 11:18 | PRG ---
DATE OF SERVICE: 07/03/2018 This is a morbidly obese female status post craniotomy. She is better. PHYSICAL EXAMINATION: VITAL SIGNS: Sats are 95% on room air, temperature 97, blood pressure 133/73. CHEST: Chest reveals decreased breath sounds, no wheezing. CARDIAC: Normal S1, S2, no gallops. ABDOMEN: Soft, no masses. IMPRESSION: 1. Craniotomy for meningioma. 2. Morbid obesity. 3. Sleep apnea. 4. Pulmonary embolus. PLAN: It appears her frontal hemorrhage is stable. We will continue Eliquis. Continue aggressive P T. Eventually rehab, PT.
--- NOTE | 2018-07-03 11:48 | CT ---
CT HEAD NONCONTRAST: INDICATIONS: Follow up intracranial hemorrhage. Prior craniotomy. COMPARISON: 07/01/2018 FINDINGS: Redemonstration of hyperdense nidus at the right frontal lobe, with surrounding vasogenic edema, and overlying right frontal craniotomy, with overlying skin kerline. Mild mass effect upon the frontal h orn of the right lateral ventricle is seen. Stable deep white matter ischemic change is noted. IMPRESSION: 1. Stable postoperative hemorrhagic nidus with surrounding vasogenic edema of the right frontal lobe . 2. Approximate 3-4 mm leftward subfalcine herniation is present, grossly stable. POS: [facility]
[2018-07-03] MEDS ORDERED: Carvedilol 6.25 MG TAB PO SCH (13:15)
[2018-07-03] MEDS: HYDROcodone/Acetaminophen 5/325 mg Tablet PO PRN ×2 (13:39→20:39)
--- NOTE | 2018-07-03 14:48 | PDOC.PN ---
- Subjective Encounter Start Date: 07/03/18 Encounter Start Time: 14:46 Subjective: had a bad night with fat herat rate,low BP & chest discomfort - Objective MAR Reviewed: Yes Vital Signs & Weight: Vital Signs (12 hours) Temp Pulse Resp BP BP Pulse Ox 07/03/18 14:23 94 16 92 L 07/03/18 10:49 92 16 94 L 07/03/18 08:30 97.6 F 92 16 91 L 07/03/18 07:37 97.6 F 102 H 18 137/77 91 L 07/03/18 06:59 97 16 94 L 07/03/18 03:25 85 16 166/94 H 94 L Weight Weight 271 lb 11.2 oz Most Recent Monitor Data Heart Rate from ECG 99 NIBP 105/56 NIBP BP-Mean 90 Respiration from ECG 25 SpO2 93 I&O: 07/02/18 07/03/18 07/04/18 06:59 06:59 06:59 Intake Total 2492 570 Output Total 1550 400 Balance 942 170 Result Diagrams: 07/03/18 08:22 07/01/18 05:22 Additional Labs: labs reviewed Radiology Reviewed by me: Yes (Brain CT-stable ICH) Phys Exam - Physical Examination Constitutional: NAD HEENT: PERRLA, moist MMs, sclera anicteric, oral pharynx no lesions Neck: no nodes, no JVD, supple, full ROM Respiratory: no wheezing, no rhonchi, clear to auscultation bilateral few basilar crackles Cardiovascular: RRR, no significant murmur Gastrointestinal: soft, non-tender, no distention, positive bowel sounds Musculoskeletal: no edema, pulses present Neurological: non-focal, normal sensation, moves all 4 limbs Psychiatric: normal affect, A&O x 3 Deviation from normal: multiple skin bruises on arms and legs Dx/Plan (1) Atrial fibrillation with RVR Code(s): I48.91 - UNSPECIFIED ATRIAL FIBRILLATION Status: Acute Comment: Change Cardiazem to BB given low EF on ECHO.HR now cotrolled without cardiazem drip (2) Saddle pulmonary embolus Code(s): I26.92 - SADDLE EMBOLUS OF PULMONARY ARTERY W/O ACUTE COR PULMONALE Status: Acute Qualifiers: Chronicity: acute Comment: on Lovenox BID per PCCM (3) Brain tumor Code(s): D49.6 - NEOPLASM OF UNSPECIFIED BEHAVIOR OF BRAIN Status: Acute Comment: Pathology shows Meningioma.S/P removal.On decadron (4) ICH (intracerebral hemorrhage) Code(s): I61.9 - NONTRAUMATIC INTRACEREBRAL HEMORRHAGE, UNSPECIFIED Status: Acute Comment: stable (5) Demand ischemia Code(s): I24.8 - OTHER FORMS OF ACUTE ISCHEMIC HEART DISEASE Status: Acute (6) RAVIN (obstructive sleep apnea) Code(s): G47.33 - OBSTRUCTIVE SLEEP APNEA (ADULT) (PEDIATRIC) Status: Chronic (7) S/P craniotomy Status: Acute (8) HTN (hypertension) Code(s): I10 - ESSENTIAL (PRIMARY) HYPERTENSION Status: Chronic (9) HLD (hyperlipidemia) Code(s): E78.5 - HYPERLIPIDEMIA, UNSPECIFIED Status: Chronic - Plan respiratory therapy, incentive spirometry, out of bed/ambulate, DVT proph w/SCDs Will change CCB to BB given some cardiomyopathy -: check BNP .will give 1 dose lasix as pt xander has Pulm edema as on exam -: cont AC per PCCM.on Lovenox BID so far -: Brain bleed stable. NS following -: increase ambulation.OT,PT * .monitor cardiac status * am labs Review of Systems - Review of Systems Constitutional: weakness, malaise. negative: fever, chills, sweats, other ENT: negative: Ear Pain, Ear Discharge, Nose Pain, Nose Discharge, Nose Congestion, Mouth Pain, Mouth Swelling, Throat Pain, Throat Swelling, Other Respiratory: negative: Cough, Dry, Shortness of Breath, Hemoptysis, SOB with Excertion, Pleuritic Pain, Sputum, Wheezing Cardiovascular: palpitations. negative: chest pain, orthopnea, paroxysmal nocturnal dyspnea, edema, light headedness, other Gastrointestinal: negative: Nausea, Vomiting, Abdominal Pain, Diarrhea, Constipation, Melena, Hematochezia, Other Genitourinary: negative: Dysuria, Frequency, Incontinence, Hematuria, Retention , Other Musculoskeletal: negative: Neck Pain, Shoulder Pain, Arm Pain, Back Pain, Hand Pain, Leg Pain, Foot Pain, Other Neurological: negative: Weakness, Numbness, Incoordination, Change in Speech, Confusion, Seizures, Other - Medications/Allergies Allergies/Adverse Reactions: Allergies Allergy/AdvReac Type Severity Reaction Status Date / Time No Known Allergies Allergy Verified 06/12/18 10:38 Medications: Current Medications Acetaminophen (Tylenol) 650 mg PO Q4H PRN PRN Reason: Headache/Fever or Pain Hydrocodone Bitart/Acetaminophen (Reserve 5/325) 2 tab PO Q4H PRN PRN Reason: Severe Pain (7-10) Last Admin: 07/03/18 13:39 Dose: 2 tab Hydrocodone Bitart/Acetaminophen (Reserve 5/325) 1 tab PO Q4H PRN PRN Reason: Moderate Pain (4-6) Last Admin: 07/01/18 17:20 Dose: 1 tab Albuterol Sulfate (Ventolin) 2.5 mg NEB Q2H PRN PRN Reason: Wheezing Albuterol Sulfate (Proventil Hfa) 2 puff INH Q4H PRN PRN Reason: Dyspnea/Wheezing/SOB Albuterol/Ipratropium (Duoneb) 3 ml NEB [id number] PRN PRN Reason: SOB &/or Wheezing Albuterol/Ipratropium (Duoneb) 3 ml NEB [id number] SCH Last Admin: 07/03/18 14:23 Dose: 3 ml Benzonatate (Tessalon) 100 mg PO QAM [facility] Last Admin: 07/03/18 09:22 Dose: 100 mg Bisacodyl (Dulcolax) 10 mg PO QAM [facility] Last Admin: 07/03/18 09:20 Dose: Not Given Carvedilol (Coreg) 6.25 mg PO BID [facility] Carvedilol (Coreg) 6.25 mg PO NOW [facility] Stop: 07/03/18 15:15 Last Admin: 07/03/18 13:36 Dose: 6.25 mg Clonidine (Catapres) 0.1 mg PO Q4H PRN PRN Reason: SBP>160 Dexamethasone (Decadron) 4 mg PO TID [facility] Last Admin: 07/03/18 09:15 Dose: 4 mg Docusate Sodium (Colace) 200 mg PO QAM [facility] Last Admin: 07/03/18 09:16 Dose: 200 mg Enoxaparin Sodium (Lovenox) 120 mg SC 0900,2100 [facility] Last Admin: 07/03/18 09:19 Dose: 120 mg Famotidine (Pepcid) 20 mg PO BID [facility] Last Admin: 07/03/18 09:15 Dose: 20 mg Furosemide (Lasix) 20 mg SLOW IVP ONE [facility] Hydralazine HCl (Apresoline) 10 mg SLOW IVP Q4H PRN PRN Reason: SBP>170 Iron/Minerals/Multivitamins (Theragran M) 1 tab PO DAILY [facility] Last Admin: 07/03/18 09:17 Dose: 1 tab Lisinopril (Zestril) 20 mg PO QAM [facility] Last Admin: 07/03/18 09:16 Dose: 20 mg Lovastatin (Mevacor) 20 mg PO HS [facility] Last Admin: 07/02/18 21:16 Dose: 20 mg Mometasone Furoate/Formoterol Fumar (Dulera 200 Mcg/5 Mcg Inhaler) 2 puff INH DAILY-RT [facility] Last Admin: 07/03/18 07:02 Dose: 2 puff Multivitamins/Zinc (Stress 600 With Zinc) 1 tab PO DAILY [facility] Last Admin: 07/03/18 09:15 Dose: 1 tab Ondansetron HCl (Zofran) 4 mg IVP Q6H PRN PRN Reason: Nausea/Vomiting Ondansetron HCl (Zofran Odt) 4 mg PO Q6H PRN PRN Reason: Nausea Last Admin: 07/01/18 02:17 Dose: 4 mg Citalopram 20 Mg Tab 0 each PO HS [facility] Last Admin: 07/02/18 20:20 Dose: 1 each Citalopram 40 Mg (Tablet) 0 each PO QAM [facility] Last Admin: 07/03/18 09:16 Dose: 1 each Phenytoin Sodium (Dilantin Er) 300 mg PO HS [facility] Last Admin: 07/02/18 20:21 Dose: 300 mg Sodium Chloride (Flush - Normal Saline) 10 ml IVF Q12HR [facility] Last Admin: 07/03/18 09:23 Dose: 10 ml Sodium Chloride (Flush - Normal Saline) 10 ml IVF PRN PRN PRN Reason: Saline Flush Triamcinolone Acetonide (Kenalog 0.1% Cream) 0 gm TOP ASDIR [facility] Trospium (Trospium) 20 mg PO BID [facility] Last Admin: 07/03/18 09:15 Dose: 20 mg
[2018-07-03] MEDS ORDERED: Furosemide 20 MG/2 ML VIAL SLOW IVP SCH (15:00)
--- NOTE | 2018-07-03 19:01 | PRG ---
DATE OF SERVICE: 07/03/2018 Ms. Smith is recovering from her pulmonary embolus. She states she feels much better today. She has had bouts of atrial fibrillation as well. Her incision remains clean, dry, and intact. Our neurosurgical plan is to remove kerline and sutures tomorrow. We are working toward disposition ideally in a rehabilitation setting and if not rehabili tation then to the half-way facility. We will see her back in approximately 4 weeks in my [facility] for additional outpatient evaluation.
[2018-07-03] MEDS: Apixaban 5 MG TAB PO SCH (20:34)
[2018-07-03] MEDS: Carvedilol 6.25 MG TAB PO SCH (20:34)
[2018-07-03] MEDS: Lovastatin 20 MG TAB PO SCH (20:34)
[2018-07-03] MEDS: Citalopram 20 MG TAB PO SCH (20:35)
[2018-07-04 06:14] LABS: Hemoglobin 11.5 g/dL (12.0-16.0)
[2018-07-04 06:20] LABS: Anion Gap 15 mmol/L (10-20); BUN (Urea Nitrogen) 30 mg/dL (9.8-20.1); Calc. Creatinine Clearance 161 mL/min (70-130); Calcium 9.9 mg/dL (7.8-10.44); Carbon Dioxide 23 mmol/L (23-31); Chloride 103 mmol/L (98-107); Estimated GFR-MDRD 84; Glucose 136 mg/dL (80-115); Potassium 4.7 mmol/L (3.5-5.1); Sodium 136 mmol/L (136-145)
[2018-07-04] MEDS: Mometasone/Formoterol 120 PUFF INHALER INH SCH (06:48)
--- NOTE | 2018-07-04 08:36 | PRG ---
DATE OF SERVICE: 07/04/2018. SUBJECTIVE: Ms. Smith is on 4th day of her hospital stay for pulmonary embolism. She is on the medic al floor now transferred out of the ICU 2 days ago. She looks to be doing very well. She is seated on the bedside, ready to have her sutures and kerline removed. Incision looks to be very well healin g, dry, no drainage, well approximated. I will go ahead and remove these now. From neurosurgical pe rspective, she is ready for discharge to any rehab center when ready or when authorized to do so. Jesse cooper will need to continue her dexamethasone taper as well as her antiepileptic medication taper and we will plan to see her in 4 weeks. Storm Cardenas PA-C dictating for Dr. Mccarty.
--- NOTE | 2018-07-04 09:19 | PRG ---
DATE OF SERVICE: 07/04/2018 This morning she is awake, alert,, responsive. Her sutures were removed from the frontal craniotomy scar. PHYSICAL EXAMINATION: VITAL SIGNS: Sats are 90% on room air, respirations 18, temperature 97, blood pressure is 150/94. S he is walking about 20 feet. CHEST: No wheezing or crackles. CARDIAC: Normal S1, S2, no gallops. ABDOMEN: Soft, no masses. LABORATORY: BNP is 481. Electrolytes are normal. IMPRESSION: 1. Status post craniotomy. 2. Hemangioma. 3. Morbid obesity. 4. Sleep apnea. 5. Pulmonary embolism. PLAN: She is being transferred to the rehab. She was switched over to Eliquis. She is to follow up with Dr. Booth after she leaves the rehab.
[2018-07-04] MEDS: Carvedilol 6.25 MG TAB PO SCH (09:52)
[2018-07-04] MEDS: Bisacodyl 5 MG TAB PO SCH (09:53)
[2018-07-04] MEDS: Multivitamin W/ Minerals 1 TAB PO SCH (09:54)
[2018-07-04] MEDS: Dexamethasone 4 MG TAB PO SCH ×2 (09:54→14:48)
[2018-07-04] MEDS: Docusate 100 MG CAP PO SCH (09:54)
[2018-07-04] MEDS: Apixaban 5 MG TAB PO SCH (09:54)
[2018-07-04] MEDS: TROSPIUM 20 MG TABLET PO SCH (09:54)
[2018-07-04] MEDS: Lisinopril 20 MG TAB PO SCH (09:54)
[2018-07-04] MEDS: Famotidine 20 MG TAB PO SCH (09:55)
[2018-07-04] MEDS: CITALOPRAM 40 MG TABLET PO SCH (10:07)
[2018-07-04] MEDS: Stress 600 With Zinc 1 TAB PO SCH (10:19)
[2018-07-04] MEDS: Benzonatate 100 MG CAP PO SCH (10:19)
[2018-07-04] MEDS: HYDROcodone/Acetaminophen 5/325 mg Tablet PO PRN (12:19)
[2018-07-04 15:22] VITALS: BP 136/90; TEMP 96.6
--- NOTE | 2018-07-04 18:30 | DIS ---
DATE OF ADMISSION: 06/29/2018 DATE OF DISCHARGE: 07/04/2018 PRIMARY CARE PHYSICIAN: Rich Valentine. DISCHARGE DISPOSITION: [facility]. INHOUSE CONSULTATIONS: 1. Pulmonary Medicine. 2. Cardiology, Dr. Spring. 3. Neurosurgery, Dr. Mccarty DISCHARGE DIAGNOSES: 1. Atrial fibrillation with rapid ventricular response. 2. Saddle pulmonary embolism and multiple small pulmonary emboli. 3. Brain tumor status post resection with pathology positive for meningioma on Decadron. 4. Intracerebral hemorrhages post-craniotomy, stable. 5. Mild ischemia. 6. Obstructive sleep apnea. 7. Hypertension. 8. Dyslipidemia. PROCEDURES DONE IN THE HOSPITAL: 1. CT angio of the thorax upon presentation, which shows massive pulmonary embolism and extensive lo wer lobe emboli and sagittal embolus in both lower lobes. 2. CT scan of the brain upon presentation, which shows postop right frontal craniotomy changes, some white matter edema associated with the focus of parenchymal hemorrhage somewhat diffuse in nature, s uggesting that this is partially resolving, but does have acute elements. 3. Repeat CT scans of the brain, almost on a daily basis as long as she stayed here which showed sta ble appearance of the parenchymal hemorrhage. 4. Transthoracic echocardiogram which shows EF of 40%-45% in severity in right ventricular cavity an d marked in right atrial cavity with moderate to severe tricuspid regurgitation. 5. Lower extremity ultrasound of both legs which is negative for any DVT. HISTORY OF PRESENTING ILLNESS: Ms. Smith is a pleasant 63-year-old female who appears older than her stated age with past medical history of COPD, obesity, sleep apnea on CPAP at night, hypertension, dy slipidemia, and GERD who presented to the hospital with complaints of pain. DISCHARGE MEDICATIONS: 1. Tapering dose of Decadron 2 mg p.o. t.i.d., to be tapered by the rehab physician. 2. Extended release phenytoin sodium 300 mg at bedtime. 3. Triamcinolone as needed. 4. Protonix 40 mg daily. 5. Lisinopril 20 mg in the morning. 6. Mevacor 20 mg at bedtime. 7. Lasix 20 mg p.o. b.i.d. 8. Carvedilol 6.25 mg p.o. b.i.d. 9. Eliquis 10 mg p.o. b.i.d. 10. Albuterol inhaler as needed. 11. DuoNebs q.4-6 hours as needed. 12. Trospium 20 mg p.o. b.i.d. 13. [place] nasal spray q.i.d. p.r.n. 14. Vitamin B12, folic acid, B6 complex. 15. Protonix 40 mg daily. 16. Kinzers as needed. 17. Clonidine p.r.n. 18. Celexa 20 mg in the morning and 40 mg in the morning, home dose need to be confirmed. 19. Tessalon Perles as needed. 20. Tylenol as needed. HISTORY OF PRESENTING ILLNESS: Ms. Smith recently had craniotomy for tumor removal in the temporofron demian area on the right side 11 days prior to admission by Dr. Mccarty. Biopsy was pending at the time o f her presentation. She was at home when she developed sudden onset of chest pain and become very hy poxic and presented to the ER. Oxygen saturation was low upon presentation as well as hypotension wa s presented. Her CT scan of the chest suggested big massive saddle embolus. She needed fluid for re suscitation in the emergency room. Neurosurgery was consulted with regards to her recent craniotomy status, recommendations for anticoagulation and they recommended starting her on heparin drip. She w as stabilized and started on heparin drip and was admitted to the Critical Care Unit in a stable cond ition. Please see admission history and physical for further detail. Pulmonary Medicine was also co nsulted as well as Neurosurgery by the admitting physician. Her labs upon presentation indicated a t roponin of 0.037, likely demand ischemia. The patient was admitted on nonrebreather and lower extrem ity ultrasound was negative for DVT. HOSPITAL COURSE: Patient was continued on heparin drip and Neurosurgery recommended daily brain CT s cans, which were done and they remained stable. Pulmonary Medicine continued the heparin drip which was later changed to b.i.d. Lovenox and eventually Eliquis. The patient did develop atrial fibrillation with RVR while in the hospital and Cardiology was consult ed and echo was done. She was already anticoagulated for PE, which was recommended to be continued b conchita Spring who saw the patient as well. She initially was treated with oral and IV Cardizem for rate control, but spontaneously converted to sinus rhythm which was rate controlled. Coreg was added when echo showed EF of 40%-45%. Rest of the hospitalization, she remained in sinus rhythm. As of this morning, she is stable and has been cleared for discharge by Pulmonary Medicine as well as Neurosurgery as well as Cardiology. Rehab was arranged for her. She was seen and examined prior to discharge. She is actually feeling very good when I was able to m ove around without difficulty. She is not using any supplemental oxygen and is not having any bleedi ng except for some nose bleeding whenever she sneezes with some specks of blood mixed in her snout. Other than that, her hemoglobin and hematocrit is stable and she is hemodynamically stable herself. She will be discharged. PHYSICAL EXAMINATION: VITAL SIGNS: This morning temperature 98.7, pulse of 70, respirations 18, saturating 95% on room air , blood pressure 138/83. GENERAL APPEARANCE: No acute distress, sitting up in bed, awake, alert, oriented x3. CHEST: Clear to auscultation bilaterally without any wheezing. Rate and rhythm is regular, without any murmurs. LABORATORY DATA: CBC shows hemoglobin of 11.5, which was 11.54 yesterday. Serum chemistries unremar kable. Blood sugar 136. DISCHARGE FOLLOWUP: 1. Cardiology, Dr. Spring. 2. Pulmonary Medicine, Dr. Booth. 3. Neurosurgery, Dr. Mccarty. 4. Primary care physician, Dr. Rich Valentine.
== END 2018-07-04 19:07 | DRG 175 ==
LOC: ERS 21:41 → CCU 06-30 00:07 → 2NO 07-02 14:12
PROVIDERS: ADMIT Family Medicine; ATTEND Family Medicine
DX: I26.92 Saddle embolus of pulmonary artery without acute cor pulmonale (principal); J96.01 Acute respiratory failure with hypoxia; I61.8 Other nontraumatic intracerebral hemorrhage; Z68.43 Body mass index [BMI] 50.0-59.9, adult; I24.8 Other forms of acute ischemic heart disease; E66.01 Morbid (severe) obesity due to excess calories; J44.9 Chronic obstructive pulmonary disease, unspecified; G47.33 Obstructive sleep apnea (adult) (pediatric); I10 Essential (primary) hypertension; E78.5 Hyperlipidemia, unspecified; K21.9 Gastro-esophageal reflux disease without esophagitis; Z87.891 Personal history of nicotine dependence; E78.00 Pure hypercholesterolemia, unspecified; I48.91 Unspecified atrial fibrillation; D32.0 Benign neoplasm of cerebral meninges; Z79.01 Long term (current) use of anticoagulants
CPT/HCPCS: 36415; 70450; 71045; 71275; 80048; 80053; 82550; 82553; 82805; 83690; 83880; 84484; 85014; 85018; 85025; 85730; 93005; 93010; 93306; 93970; 94760; 96360; 96365; 99292; A4216; G8978-GP-CL; G8979-GP-CJ; J0360; J1160; J1644; J1650; J1940; J2405; J3490; J7050; J7620; J8540; Q0162; S0028

== ENCOUNTER 2018-07-17 09:02 | Observation (INO) | payer BC ==
[2018-07-17 10:28] LABS: INR-International Normal Ratio 0.9; PTT 24.1 SEC (22.9-36.1); Prothrombin Time 12.6 SEC (12.0-14.7)
[2018-07-17 10:31] LABS: ALT (SGPT) 47 U/L (8-55); AST (SGOT) 18 U/L (5-34); Alkaline Phosphatase 82 U/L (40-150); Anion Gap 11 mmol/L (10-20); BUN (Urea Nitrogen) 18 mg/dL (9.8-20.1); Bilirubin, Total 0.3 mg/dL (0.2-1.2); Calc. Creatinine Clearance 0 mL/min (70-130); Calcium 9.4 mg/dL (7.8-10.44); Carbon Dioxide 31 mmol/L (23-31); Chloride 102 mmol/L (98-107); Estimated GFR-MDRD 89; Globulin 2.5 g/dL (2.4-3.5); Glucose 77 mg/dL (80-115); Potassium 3.9 mmol/L (3.5-5.1); Protein, Total 6.5 g/dL (6.0-8.3); Sodium 140 mmol/L (136-145)
[2018-07-17 10:33] LABS: Troponin I 0.012 ng/mL (< 0.028)
[2018-07-17 10:37] LABS: CKMB 0.8 ng/mL (0-6.6)
[2018-07-17 10:38] LABS: #Basophils 0.1 thou/uL (0.0-0.2); #Eosinphils 0.1 thou/uL (0.0-0.7); #Lymphocytes 3.2 thou/uL (1.20-3.40); #Monocytes 0.8 thou/uL (0.11-0.59); #Neutrophils 5.2 thou/uL (1.40-6.50); %Basophils 1.3 % (0.0-1.0); %Eosinophils 1.1 % (0.0-10.0); %Lymphocytes 34.2 % (21.0-51.0); %Neutrophils 55.4 % (42.0-75.0); Hemoglobin 12.3 g/dL (12.0-16.0); Mean Corpuscular HGB CONC 33.5 g/dL (32.0-36.0); Mean Corpuscular Volume 95.5 fL (78.0-98.0); Mean Platelet Volume 8.2 fL (7.4-10.4); Platelet Count 230 thou/uL (130-400); RBC Distribution Width 14.1 % (11.5-14.5); Red Blood Cell (RBC) Count 3.85 mill/uL (4.20-5.40); White Blood Cell (WBC) Count 9.4 thou/uL (4.8-10.8)
[2018-07-17 11:43] LABS: Bilirubin Negative (Negative); Blood, Urine Negative (Negative); Clarity CLOUDY (Clear); Glucose, Urine (Dipstick) Negative (Negative); Leukocyte Moderate (Negative); Nitrite Positive (Negative); Protein, Urine (Dipstick) Negative (Neg-Trace); Specific Gravity, Urine 1.012 (1.002-1.036); Urobilinogen 0.2 mg/dL (0.2-1.0)
--- NOTE | 2018-07-17 11:44 | RAD ---
CHEST 1 VIEW: Date: 07/17/18 HISTORY: Dyspnea. Hypotension. Bradycardia. COMPARISON: 06/29/18. FINDINGS: Cardiac silhouette remains magnified and enlarged. Pulmonary vasculature upper limits of normal. Medi astinum is midline. No lobar consolidation or evidence of pneumothorax. service tester leads overlie the chest. IMPRESSION: Borderline cardiomegaly and pulmonary vascular congestion are stable. POS: [facility]
[2018-07-17 11:48] LABS: Bacteria/HPF 4+ HPF (None Seen); Hyaline Casts/LPF 0-3 HYALINE CAST LPF (0-3 Hyaline); Pathc Cast-AUWi Flag 0.14 (0-2.49); Squamous Epithelial 0-3 HPF (0-3); WBC/HPF 21-50 HPF (0-3)
[2018-07-17] MEDS ORDERED: Fentanyl 100 MCG/2 ML VIAL ONE ×2 (12:36→12:38)
--- NOTE | 2018-07-17 12:53 | CT ---
CT HEAD NONCONTRAST: HISTORY: Headache. COMPARISON: 07/03/2018 FINDINGS: Encephalomalacia at the right frontal lobe and minimal residual vasogenic edema have improved signifi cantly since the previous exam. Postoperative changes of the cranium are again demonstrated. No mas s effect or shift of midline structures. The ventricles appear normal in size, shape, and position. The visualized paranasal sinuses remain well aerated. IMPRESSION: Resolving postoperative changes, right frontal lobe. No acute intracranial abnormalities otherwise d emonstrated. POS: [facility]
[2018-07-17] MEDS ORDERED: Senokot 8.6 MG TAB PO PRN (13:21)
[2018-07-17] MEDS ORDERED: Loratadine 10 MG TAB PO PRN (13:21)
[2018-07-17] MEDS ORDERED: Ondansetron ODT 4 MG TAB PO PRN (13:21)
[2018-07-17] MEDS ORDERED: Ondansetron HCl/PF 4 MG/2 ML Vial IVP PRN (13:21)
[2018-07-17] MEDS ORDERED: Milk Of Magnesia 30 ML UDCUP PO PRN (13:21)
[2018-07-17] MEDS ORDERED: hydrALAZINE 20 MG/ML VIAL SLOW IVP PRN (13:21)
[2018-07-17] MEDS ORDERED: Loperamide HCl 2 MG CAP PO PRN (13:21)
[2018-07-17] MEDS ORDERED: Artificial Tears 18 DROP/0.9 ML EA EYE PRN (13:21)
[2018-07-17] MEDS ORDERED: HYDROcodone/Acetaminophen 5/325 mg Tablet PO PRN (13:21)
[2018-07-17] MEDS ORDERED: Chloraseptic Spray 180 ml Bottle PO PRN (13:21)
[2018-07-17] MEDS ORDERED: Eucerin (Mineral Oil/Petrolatum,White) 30 gm Jar TOP PRN (13:21)
[2018-07-17] MEDS ORDERED: Mag-Al 1200 mg/1200 mg/30 ML UDCUP PO PRN (13:21)
[2018-07-17] MEDS ORDERED: Sodium Chloride 0.65% Nasal 44 ML BOT EA NARE PRN (13:21)
[2018-07-17] MEDS ORDERED: Diabetic Tussin 200 MG/10 ML UDCUP PO PRN (13:21)
--- NOTE | 2018-07-17 13:38 | HP ---
PRIMARY CARE PHYSICIAN: Dr. Rich Valentine. REASON FOR ADMISSION: Bradycardia and hypotension. HISTORY OF PRESENT ILLNESS: A 63-year-old female who has morbid obesity who was admitted by [place] [facility] back in 06/2018. The patient underwent right frontal craniotomy and resection of tumor as well as cranioplasty for repair of skull defect. The patient had surgical procedure on 06/20/2018. Subse quently, patient was discharged home. The patient had readmission on 06/29/2018. At that time, fco ent had a massive saddle pulmonary embolism. Patient was admitted in CCU. Neurosurgeon cleared her for anticoagulation therapy. The patient stayed in hospital until 07/04/2018. The patient was disch arged to rehab on Eliquis therapy. As per patient's family member when she had massive pulmonary embolism, at that time, patient was tac hycardic. She was hypoxic and hypotensive. The patient was discharged to rehab with Coreg 6.25 mg p .o. b.i.d., lisinopril 5 mg p.o. b.i.d. and lisinopril 20 mg p.o. daily. The patient reports that at rehab, they were using parameters not to give blood pressure medicine for low blood pressure as well as low pulse rate. Several times she was not given Coreg and blood press ure medication. As per patient, they reduced dose of Coreg upon discharge. Patient was discharged f rom rehab on last Saturday and since then they will keep checking blood pressure at home. Several bloo d pressure reading was in 110s as well as several pulse reading was in below 60s. Patient was someti mes holding Coreg because of low pulse rate, but she was mostly taking lisinopril. Today, the patient was checking her blood pressure and pulse and she noted that her blood pressure wa s 97 systolic and her pulse was lowest, at home was 37. They were trying to check a different locati on as well as manually as well as they checked manual pulse and it was low and the patient was feelin g lightheaded, weakness and dizziness. She was feeling overall weak and that is why they decided to come to the emergency room for evaluation. This patient does have chronic bilateral lower extremity edema. She used to take Lasix before her edema gets worse in the evening time. The patient denies a ny excruciating headaches. She denies any focal motor or sensory symptoms. She denies any abdominal pain, nausea, vomiting, diarrhea. She denies any UTI symptoms, though her urinalysis is suggestive of urinary tract infection. She denies any orthopnea or PND. She denies any fever or chills. REVIEW OF SYSTEMS: The following complete review of systems was negative, unless otherwise mentioned in the HPI or below: Constitutional: Weight loss or gain, ability to conduct usual activities. Skin: Rash, itching. Eyes: Double vision, pain. ENT/Mouth: Nose bleeding, neck stiffness, pain, tenderness. Cardiovascular: Palpitations, dyspnea on exertion, orthopnea. Respiratory: Shortness of breath, wheezing, cough, hemoptysis, fever or night sweats. Gastrointestinal: Poor appetite, abdominal pain, heartburn, nausea, vomiting, constipation, or diarr hea. Genitourinary: Urgency, frequency, dysuria, nocturia. Musculoskeletal: Pain, swelling. Neurologic/Psychiatric: Anxiety, depression. Allergy/Immunologic: Skin rash, bleeding tendency. Please see my HPI for pertinent positive and negative. All other review of systems reviewed and nega tive except as mentioned in the HPI. PAST MEDICAL HISTORY: Morbid obesity, COPD, obstructive sleep apnea, hypertension, dyslipidemia, gas troesophageal reflux disease, history of meningioma. PAST SURGICAL HISTORY: Craniotomy for meningioma, cholecystectomy, bilateral knee replacement, tonsi llectomy, tubal ligation, breast reduction. PAST PSYCHIATRIC HISTORY: Anxiety and depression. ALLERGIES: No known drug allergy. CURRENT HOME MEDICATIONS: At this point, we do not have current up-to-date medication change from re habilitation, but patient was discharged from hospital to rehab on following medications: ProAir HFA 2 puffs q.6 hourly, Tylenol #3 one tablet q.6 hourly p.r.n., Tessalon 200 mg daily, Dulcolax 10 mg d aily, Celexa 20 mg daily, Pepcid 10 mg daily, Advair inhalation b.i.d., lisinopril 20 mg p.o. daily, lovastatin 20 mg p.o. daily, multivitamin 1 tablet p.o. daily, Protonix 40 mg p.o. daily, Dilantin 30 0 mg p.o. at bedtime, VESIcare 5 mg p.o. daily, Eliquis 5 mg p.o. b.i.d., Coreg 6.25 mg p.o. b.i.d. SOCIAL HISTORY: The patient is living at home. She is a former smoker. She quit smoking few years ago. She lives at home with family. She drinks alcohol occasionally. She denies any other illicit drug abuse. FAMILY HISTORY: No strong family history of premature coronary artery disease, stroke or cancer. EMERGENCY ROOM COURSE: Patient is given IV fluid, fentanyl 25 mcg IV push. PHYSICAL EXAMINATION: VITAL SIGNS: On arrival, blood pressure 94/41, pulse 75, respiratory rate 27, temperature 97.7, satu ration 97% on 2 liter, weight 120 kilograms. GENERAL: Patient is currently alert, awake, in no obvious acute distress. HEAD: Normocephalic, atraumatic. Surgical scar noted and well healed. EYES: Pupils round, reactive to light. Extraocular muscle intact. ENT: Oropharynx within normal limits. Moist mucous membranes, no oral lesion. No pharyngeal erythe ma, no exudate. NECK: Supple, no JVD, no thyromegaly, no carotid bruit, no jugular venous distention. LUNGS: Clear to auscultation without any rhonchi or rales. CARDIAC: S1, S2 regular, soft systolic murmur present at lower left sternal border. Extra beats not ed. ABDOMEN: Morbid obesity present. No peritoneal sign, no guarding, no rigidity, no rebound, no supra pubic tenderness. BACK: Examination unremarkable, no CVA tenderness. EXTREMITIES: Upper extremity passive movements of all joints are normal. Lower extremities: Bilate ral lower extremity pedal edema noted. Good distal pulsation. SKIN: No skin rash. PSYCHIATRIC: Normal affect. NEUROLOGIC: Nonfocal examination. IMAGING DATA AND SIGNIFICANT LABORATORY DATA: 1. EKG showing premature ventricular complexes, left bundle branch block pattern, nonspecific ST-T c hanges in inferior leads. 2. Chest x-ray based on my review, cardiomegaly, mild pulmonary vascular congestion. 3. CBC: WBC 9.4, hemoglobin 12.3, platelet 230. INR 0.9. 4. BMP: Sodium 140, potassium 3.9, chloride 102, carbon dioxide 31, anion gap 11, BUN 18, creatinin e 0.67, glucose 77, calcium 9.4. 5. LFT: AST 18, ALT 47, alkaline phosphatase 82, albumin 4.0. CK-MB 0.8, troponin I 0.012. BNP 26 9.1. Urinalysis nitrite positive, leukocyte esterase moderate. 6. CT brain based on my review, postoperative changes right frontal lobe, no acute process noted. ASSESSMENT AND PLAN/IMPRESSION: 1. Hypotension, intermittent, most likely medication related. The patient will need observation and we will monitor blood pressure more frequently and during this admission, we will try to adjust bloo d pressure medication. Patient education about medication related hypotension extensively discussed at bedside with the family member. 2. Bradycardia, intermittent, currently resolved. I am suspecting that is also medication related. The patient will need adjustment in medication. We will watch on telemetry floor for possible any b radyarrhythmia. At this point, the patient has multiple PVCs. She needs beta naima therapy, but u nfortunately she does not tolerate current dose and that is why we will verify the patient's Coreg do se and we will reduce 50%. At this point, patient's low pulse rate has resolved and patient is doing well. She will be observed only. 3. Systolic and diastolic dysfunction. The patient does have moderate to severe tricuspid regurgita tion as well as systolic dysfunction is 40%-45%. She may have underlying systolic and diastolic hear t failure. The patient is already on Coreg therapy as well as lisinopril therapy. The patient is al so advised to take Lasix therapy on a daily basis for her edema. 4. Urinary tract infection. Though patient does not have any UTI symptoms, we will start Rocephin 1 gram q.24 hours. We will send urine culture and upon discharge, we will consider prescribing her Ci pro, Bactrim or Macrobid depending upon culture result. 5. Anxiety and depression. We will continue Celexa as per home dosage. 6. Dyslipidemia. Continue Lipitor 10 mg p.o. at bedtime while in hospital. Upon discharge, the pat ient will resume her previous statin therapy. 7. Postoperative seizure prophylaxis. Patient is taking Dilantin therapy which we will continue whnolan elizabeth in hospital. 8. Gastroesophageal reflux disease. We will continue Protonix 40 mg p.o. daily. 9. Morbid obesity. Dietary education given, weight loss education given. 10. Obstructive sleep apnea on continuous positive airway pressure. We will continue patient's cont inuous positive airway pressure machine while in hospital. 11. History of massive pulmonary embolism. We will continue Eliquis 5 mg p.o. b.i.d. 12. Deep venous thrombosis prophylaxis. Patient is already on Eliquis therapy. 13. Gastrointestinal prophylaxis, Protonix 40 mg p.o. daily. CODE STATUS: The patient is FULL CODE. Patient's daughter is surrogate decision maker. Disposition plan within 24 hours. This patient needs more frequent monitoring of blood pressure and pulse at home and she needs mainly outpatient followup with primary care physician to better adjust medication.
[2018-07-17 13:46] VITALS: BMI 57.1
[2018-07-17] MEDS: cefTRIAXone\\ROCEPHIN 1 GM in Sodium Chloride 0.9% 100 ML IVPB SCH (15:09)
[2018-07-17] MEDS ORDERED: Sodium Chloride 0.9% 500 ML IVPB SCH (16:30)
[2018-07-17] MEDS: Acetaminophen 325 MG TAB PO PRN (16:42)
[2018-07-17 16:59] LABS: Hemoglobin 11.5 g/dL (12.0-16.0)
[2018-07-17 17:26] LABS: Troponin I 0.011 ng/mL (< 0.028)
[2018-07-17] MEDS ORDERED: Ketorolac Tromethamine 30 MG/ML VIAL IVP SCH (17:45)
[2018-07-17] MEDS: Apixaban 5 MG TAB PO SCH (21:51)
[2018-07-18] MEDS: Acetaminophen 325 MG TAB PO PRN ×2 (04:11→10:43)
[2018-07-18 05:42] LABS: Anion Gap 13 mmol/L (10-20); BUN (Urea Nitrogen) 17 mg/dL (9.8-20.1); Calc. Creatinine Clearance 193 mL/min (70-130); Calcium 8.9 mg/dL (7.8-10.44); Carbon Dioxide 25 mmol/L (23-31); Chloride 105 mmol/L (98-107); Estimated GFR-MDRD Greater than 90; Glucose 95 mg/dL (80-115); Magnesium 1.6 mg/dL (1.6-2.6); Potassium 3.8 mmol/L (3.5-5.1); Sodium 139 mmol/L (136-145)
[2018-07-18 06:40] LABS: Band 7 % (5-11); Eosinophils 1 % (0-10); Hemoglobin 11.4 g/dL (12.0-16.0); Lymphocytes 40 % (21-51); MDiff Complete? YES; Mean Corpuscular HGB CONC 35.1 g/dL (32.0-36.0); Mean Corpuscular Hemoglobin 33.6 pg (27.0-31.0); Mean Corpuscular Volume 95.8 fL (78.0-98.0); Mean Platelet Volume 7.7 fL (7.4-10.4); Monocytes 2 % (0-10); Neutrophil 50 % (42-75); Platelet Count 190 thou/uL (130-400); RBC Distribution Width 14.3 % (11.5-14.5); White Blood Cell (WBC) Count 6.8 thou/uL (4.8-10.8)
[2018-07-18] MEDS ORDERED: HYDROcodone/Acetaminophen 5/325 mg Tablet PO PRN (08:56)
[2018-07-18] MEDS ORDERED: Ondansetron ODT 4 MG TAB PO PRN (08:56)
[2018-07-18] MEDS ORDERED: Sodium Chloride 0.65% Nasal 44 ML BOT EA NARE PRN (08:56)
[2018-07-18] MEDS ORDERED: Famotidine 20 MG TAB PO SCH (10:00)
[2018-07-18] MEDS ORDERED: Dexamethasone 1 MG TAB PO SCH (10:00)
[2018-07-18] MEDS ORDERED: Citalopram 20 MG TAB PO SCH (10:00)
[2018-07-18] MEDS ORDERED: Multivit, Therapeutic 1 TAB PO SCH (10:00)
[2018-07-18] MEDS: Apixaban 5 MG TAB PO SCH ×2 (10:36→20:21)
[2018-07-18] MEDS: Docusate 100 MG CAP PO SCH (10:36)
[2018-07-18] MEDS: Citalopram 20 MG TAB PO SCH (10:37)
[2018-07-18] MEDS ORDERED: Ketorolac Tromethamine 30 MG/ML VIAL IVP SCH (12:45)
[2018-07-18 13:38] LABS: Troponin I Less than 0.010 ng/mL (< 0.028)
[2018-07-18] MEDS: cefTRIAXone\\ROCEPHIN 1 GM in Sodium Chloride 0.9% 100 ML IVPB SCH (14:53)
[2018-07-18] MEDS: Hydrocortisone Sod Succ/PF 100 mg/2 ml Vial IVP SCH (16:52)
--- NOTE | 2018-07-18 19:10 | CON ---
DATE OF CONSULTATION: 07/18/2018 HISTORY: Amelia Smith is a 63-year-old female whom I evaluated 2-1/2 weeks ago. She was initially admitted on 06/20/2018 and had resection of right frontal meningioma. Postoperative course was unremarkable and she was discharged on . She then returned on 06/29/2018 after having onset at 8:00 p.m. of chest pain, shortness of breath and nausea. The chest pain was pleuritic in nature. When she got to the emergency room, oxygen saturations were in the 80s- 90s and she was hypotensive. She underwent CT angiogram of the chest which revealed a massive pulmonary embolism. Echocardiogram showed some right ventricular dysfunction. Lower extremity venous ultrasound did not reveal any deep venous thrombosis. She was placed on intravenous heparin and ultimately Eliquis. There was some question in regards to having atrial fibrillation. On admission , EKG showed sinus tachycardia. The other one showed probable sinus tachycardia , although the R-R interval was not always equal. She never did have any other evidence of atrial fibrillation during her hospital stay. With her ejection fraction of 40%-45%, she was placed on carvedilol. She went to rehab and apparently completed her treatment there. She then went home. She was on carvedilol 6.25 b.i.d., lisinopril 5 b.i.d. Yesterday when she was checking her blood pressure, pressure was 97 systolic and heart rate was 37. She was feeling so lightheaded and weak and came to the emergency room. She is admitted for further evaluation. PAST MEDICAL HISTORY: Hypertension, hypercholesterolemia, GERD, anxiety, obesity, obstructive sleep apnea, asthma, frontal meningioma status post resection. OPERATIONS: Craniotomy for meningioma, cholecystectomy, bilateral knee replacement, tonsillectomy, breast reduction, tubal ligation. HOME MEDICATIONS: List on the computer include albuterol 2 puffs p.r.n., Eliquis 5 mg b.i.d., Tessalon 100 mg q.a.m. p.r.n., carvedilol 6.25 b.i.d., citalopram 60 q.a.m., Decadron 1 mg daily, gabapentin 300 mg t.i.d., Stacy, DuoNebs q.6 hours p.r.n., lisinopril unknown dose daily, lovastatin unknown dose daily, Zofran p.r.n., Protonix 40 q.a.m., phenytoin sodium 300 mg at bedtime, VESIcare 1 tablet q.a.m. ALLERGIES: None. SOCIAL HISTORY: She does not smoke or drink. REVIEW OF SYSTEMS: Twelve point review of systems otherwise unremarkable. PHYSICAL EXAMINATION: VITAL SIGNS: 129/60, pulse of 100, sinus rhythm. HEENT: PERRL. NECK: Supple. CHEST: Clear. CARDIAC: S1, S2 normal, without any S3, S4 or murmurs. ABDOMEN: Normal bowel sounds, without tenderness. Abdomen is obese. EXTREMITIES: Revealed 1+ pretibial edema. NEUROLOGIC: Grossly intact. SKIN: Warm and dry. IMPRESSION: 1. Bradycardia with current heart rate of 37 per minute on the monitor. She has been seen to have been ventricular bigeminy here and this certainly could have been occurring when she had a pulse reading of 37 per minute. 2. Hypotension. Lisinopril and carvedilol have been held at this time. The patient seems abnormally hypotensive given her degree of hypertension last admission. She denies any fevers, chills, dysuria, cough, etc. 3. Status post resection of frontal meningioma. 4. Massive pulmonary embolism. 5. Mild left ventricular systolic dysfunction with ejection fraction of 40%-45% . 6. Hypertension. 7. Hypercholesterolemia. 8. Gastroesophageal reflux disease. 9. Obstructive sleep apnea. 10. Asthma. 11. Obesity. PLAN: With the patient's current hypotension, carvedilol and lisinopril are being held at this time. Medication will be gradually resumed as her blood pressure will allow. MTDD
[2018-07-18] MEDS: Mometasone/Formoterol 120 PUFF INHALER INH SCH (19:49)
[2018-07-18] MEDS: Gabapentin 300 MG CAP PO SCH (20:21)
[2018-07-18] MEDS: Simvastatin 5 MG TAB PO SCH (20:21)
[2018-07-18] MEDS: TROSPIUM 20 MG TABLET PO SCH (20:23)
[2018-07-18] MEDS ORDERED: Apixaban 5 MG TAB PO SCH (21:00)
--- NOTE | 2018-07-18 21:33 | PDOC.PN ---
- Subjective Encounter Start Date: 07/18/18 Encounter Start Time: 08:00 Has been doing reasonably well today. Had been very sob with attempts to get up to the bathroom. Was far less so whem she was in rehab. No CP. Has had ZAPATA , but toradol has helped. - Objective Resuscitation Status: Resuscitation Status FULL:Full Resuscitation Vital Signs & Weight: Vital Signs (12 hours) Temp Pulse Resp BP BP Pulse Ox 07/18/18 19:52 95 07/18/18 19:50 98.4 F 80 20 121/57 L 92 L 07/18/18 19:49 95 07/18/18 15:28 98.8 F 100 20 129/60 94 L 07/18/18 14:58 104 H 16 95/52 L 94 L 07/18/18 12:21 94 L 07/18/18 12:20 77 20 133/60 89 L 07/18/18 11:39 97.6 F 79 18 106/49 L 94 L Weight Weight 273 lb 3.2 oz I&O: 07/17/18 07/18/18 07/19/18 06:59 06:59 06:59 Intake Total 710 1350 Output Total 675 150 Balance 35 1200 Result Diagrams: 07/18/18 04:44 07/18/18 04:44 Additional Labs: Accuchecks 07/18/18 12:51 POC Glucose 104 Phys Exam - Physical Examination Constitutional: NAD morbidly obese. Respiratory: no wheezing, no rales Cardiovascular: RRR, no significant murmur, no rub Gastrointestinal: soft, non-tender, no distention, positive bowel sounds Musculoskeletal: no edema Psychiatric: normal affect Dx/Plan (1) Bradycardia Code(s): R00.1 - BRADYCARDIA, UNSPECIFIED Status: Acute Comment: Coreg held. Cardiology consult pending. Echo pending. (2) History of pulmonary embolus (PE) Code(s): Z86.711 - PERSONAL HISTORY OF PULMONARY EMBOLISM Status: Acute Comment: On anticoagulation. (3) S/P craniotomy Status: Acute Comment: Benign meningioma. On steroid taper. Still has some ZAPATA. (4) HLD (hyperlipidemia) Code(s): E78.5 - HYPERLIPIDEMIA, UNSPECIFIED Status: Chronic (5) HTN (hypertension) Code(s): I10 - ESSENTIAL (PRIMARY) HYPERTENSION Status: Chronic Comment: Meds held. (6) RAVIN (obstructive sleep apnea) Code(s): G47.33 - OBSTRUCTIVE SLEEP APNEA (ADULT) (PEDIATRIC) Status: Chronic (7) Hypotension Status: Acute Comment: Meds held. Has been on a steroid taper. Will add some hydrocortisone. - Plan * .
[2018-07-19] MEDS: Hydrocortisone Sod Succ/PF 100 mg/2 ml Vial IVP SCH ×3 (00:51→17:23)
[2018-07-19] MEDS: Mometasone/Formoterol 120 PUFF INHALER INH SCH ×2 (07:23→18:53)
[2018-07-19] MEDS: Docusate 100 MG CAP PO SCH (08:00)
[2018-07-19] MEDS: Acetaminophen 325 MG TAB PO PRN ×2 (08:00→21:41)
[2018-07-19] MEDS: Citalopram 20 MG TAB PO SCH (08:01)
[2018-07-19] MEDS: Famotidine 20 MG TAB PO SCH (08:01)
[2018-07-19] MEDS: Apixaban 5 MG TAB PO SCH ×2 (08:02→21:37)
[2018-07-19] MEDS: Multivit, Therapeutic 1 TAB PO SCH (08:02)
[2018-07-19] MEDS: Dexamethasone 1 MG TAB PO SCH (08:02)
[2018-07-19] MEDS: Gabapentin 300 MG CAP PO SCH ×3 (08:02→21:38)
[2018-07-19] MEDS: TROSPIUM 20 MG TABLET PO SCH ×2 (08:02→21:39)
[2018-07-19] MEDS ORDERED: Lisinopril 5 MG TAB PO SCH (11:15)
--- NOTE | 2018-07-19 11:15 | PDOC.PN ---
- Subjective Encounter Start Date: 07/19/18 Encounter Start Time: 11:14 Doing better. Feels fairly well right now. Breathing better. No CP. - Objective Resuscitation Status: Resuscitation Status FULL:Full Resuscitation Vital Signs & Weight: Vital Signs (12 hours) Temp Pulse Resp BP BP Pulse Ox 07/19/18 08:08 98.2 F 76 20 07/19/18 07:30 98.2 F 76 20 122/58 L 95 07/19/18 06:19 92 L 07/19/18 04:20 98.4 F 71 18 111/58 L 92 L 07/18/18 23:33 97.8 F 62 20 93/47 L 94 L Weight Weight 271 lb 12.8 oz I&O: 07/18/18 07/19/18 07/20/18 06:59 06:59 06:59 Intake Total 710 1831 240 Output Total 675 1150 Balance 35 681 240 Result Diagrams: 07/18/18 04:44 07/18/18 04:44 Additional Labs: Accuchecks 07/18/18 12:51 POC Glucose 104 Phys Exam - Physical Examination Constitutional: NAD Morbid obesity Respiratory: no wheezing, no rales, no rhonchi, clear to auscultation bilateral Cardiovascular: RRR, no significant murmur Gastrointestinal: soft, non-tender, no distention, positive bowel sounds Musculoskeletal: no edema Psychiatric: normal affect Dx/Plan (1) UTI (urinary tract infection) Status: Acute Comment: E coli and Proteus. Both sensitive to the Rocephin. Has oral options for discharge. (2) Bradycardia Code(s): R00.1 - BRADYCARDIA, UNSPECIFIED Status: Acute Comment: ECHO unchanged. No further evidence of bradycardia. Will resume the Coreg this evening. (3) History of pulmonary embolus (PE) Code(s): Z86.711 - PERSONAL HISTORY OF PULMONARY EMBOLISM Status: Acute Comment: On anticoagulation. (4) S/P craniotomy Status: Acute Comment: Benign meningioma. On steroid taper. Still has some ZAPATA. (5) HLD (hyperlipidemia) Code(s): E78.5 - HYPERLIPIDEMIA, UNSPECIFIED Status: Chronic (6) HTN (hypertension) Code(s): I10 - ESSENTIAL (PRIMARY) HYPERTENSION Status: Chronic Comment: Resume the lisinopril at lower dose. BP has been good off of meds. (7) RAVIN (obstructive sleep apnea) Code(s): G47.33 - OBSTRUCTIVE SLEEP APNEA (ADULT) (PEDIATRIC) Status: Chronic Comment: Continue CPAP (8) Hypotension Status: Acute Comment: Meds held. Will resume the Lisinopril at 5 mg. Has been on a steroid taper. Will add some hydrocortisone. (9) Left ventricular dysfunction with reduced left ventricular function Code(s): I51.9 - HEART DISEASE, UNSPECIFIED Status: Acute Comment: EF 40-45% . Continue with the ACEI at lower dose. Resume the Coreg this evening. - Plan * Treating UTI. Suspect it is the primary cause of her problems. * Resuming ACEI at lower dose and Coreg at starting dose. Will watch her overnight to assure maintenance of BP and HR. If ok, DC home in am.
[2018-07-19] MEDS: cefTRIAXone\\ROCEPHIN 1 GM in Sodium Chloride 0.9% 100 ML IVPB SCH (14:27)
--- NOTE | 2018-07-19 14:47 | PDOC.CTH ---
Cardiology Progress Note - Subjective No complaints. - Objective Vital Signs Temp Pulse Resp BP BP Pulse Ox 07/19/18 11:29 98.0 F 78 20 119/64 93 L 07/19/18 08:08 98.2 F 76 20 07/19/18 07:30 98.2 F 76 20 122/58 L 95 07/19/18 06:19 92 L 07/19/18 04:20 98.4 F 71 18 111/58 L 92 L Weight 271 lb 12.8 oz 07/18/18 07/19/18 07/20/18 06:59 06:59 06:59 Intake Total 710 1831 240 Output Total 675 1150 Balance 35 681 240 - Physical Examination General/Neuro: alert & oriented x3 Lungs: CTA Heart: RRR - Labs Result Diagrams: 07/18/18 04:44 07/18/18 04:44 Troponin/CKMB CK-MB (CK-2) 0.8 ng/mL (0-6.6) 07/17/18 09:19 Troponin I Less than 0.010 ng/mL (< 0.028) 07/18/18 12:55 - Assessment/Plan 1. Bradycardia. 2. PVCs 3. Hx PE 4. 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 6. UTI Continue monitoring. No significant aly at this time and no indication for pacemaker. May need EVR at the time of discharge. Was hypotensive and now BP meds being resumed slowly. BBlockers held now. If resumed recommend 3.125mg BID Coreg.
[2018-07-19] MEDS: Carvedilol 6.25 MG TAB PO SCH (21:37)
[2018-07-19] MEDS: Simvastatin 5 MG TAB PO SCH (21:38)
[2018-07-20] MEDS: Hydrocortisone Sod Succ/PF 100 mg/2 ml Vial IVP SCH ×2 (02:54→08:51)
[2018-07-20 05:50] LABS: Hemoglobin 11.8 g/dL (12.0-16.0); Platelet Count 208 thou/uL (130-400)
[2018-07-20 06:10] LABS: Calc. Creatinine Clearance 197 mL/min (70-130); Estimated GFR-MDRD Greater than 90
[2018-07-20] MEDS: Mometasone/Formoterol 120 PUFF INHALER INH SCH (07:06)
[2018-07-20] MEDS: Acetaminophen 325 MG TAB PO PRN (08:49)
[2018-07-20] MEDS: Gabapentin 300 MG CAP PO SCH ×2 (08:50→14:04)
[2018-07-20] MEDS: Multivit, Therapeutic 1 TAB PO SCH (08:50)
[2018-07-20] MEDS: Carvedilol 6.25 MG TAB PO SCH (08:50)
[2018-07-20] MEDS: Docusate 100 MG CAP PO SCH (08:50)
[2018-07-20] MEDS: Citalopram 20 MG TAB PO SCH (08:50)
[2018-07-20] MEDS: Apixaban 5 MG TAB PO SCH (08:51)
[2018-07-20] MEDS: TROSPIUM 20 MG TABLET PO SCH (08:51)
[2018-07-20] MEDS: Famotidine 20 MG TAB PO SCH (08:52)
[2018-07-20 11:30] VITALS: BP 109/61; TEMP 97.9
[2018-07-20] MEDS: Dexamethasone 1 MG TAB PO SCH (12:02)
--- NOTE | 2018-07-20 13:16 | PDOC.CTH ---
Cardiology Progress Note - Subjective No complaints of palpitations. No bradycardia. Still with intermittent PVCs. C/ O BARBRA. Says it's been present for weeks. Maybe before brain surgery. - Objective Vital Signs Temp Pulse Resp BP BP Pulse Ox 07/20/18 11:18 97.9 F 60 20 109/61 92 L 07/20/18 08:50 98.3 F 75 20 07/20/18 07:26 98.3 F 75 20 130/69 92 L 07/20/18 02:48 97.9 F 63 20 104/59 L 93 L Weight 274 lb 9.6 oz 07/19/18 07/20/18 07/21/18 06:59 06:59 06:59 Intake Total 1831 1360 Output Total 1150 550 Balance 681 810 - Physical Examination General/Neuro: alert & oriented x3 Lungs: CTA Heart: RRR Abdomen: NT/ND Extremities: + edema B - Labs Result Diagrams: 07/20/18 05:36 07/20/18 05:36 Troponin/CKMB CK-MB (CK-2) 0.8 ng/mL (0-6.6) 07/17/18 09:19 Troponin I Less than 0.010 ng/mL (< 0.028) 07/18/18 12:55 - Assessment/Plan 1. Bradycardia. 2. PVCs 3. Hx PE 4. 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 6. UTI 7. Edema Stable for discharge. 3 week EVR to be ordered. Patient has f/u scheduled in [address] Spring. Will give Rx for lasix to continue as outpatient. Consider outpatient venous study as well. Restrict salt and fluid as well.
[2018-07-20] MEDS ORDERED: Furosemide 20 MG TAB PO SCH (14:00)
--- NOTE | 2018-07-20 22:58 | DIS ---
DATE OF ADMISSION: 07/17/2018 DATE OF DISCHARGE: 07/20/2018 DISCHARGE DIAGNOSES: 1. Bradycardia. 2. Hypotension. 3. Urinary tract infection with Escherichia coli and Proteus mirabilis. 4. History of saddle embolus. 5. History of craniotomy, resection of meningioma. 6. Mild nonischemic cardiomyopathy with an EF of 40%-45%. HISTORY: This patient is a 63-year-old female with a history of meningioma, which was symptomatic, r equiring craniotomy and resection. Subsequently, the patient developed a saddle pulmonary embolus. The patient then recovered through all of that and has gone on to rehab and was discharged to home. The patient reports that for a couple of days prior to leaving rehab therapy, she started feeling poo rly with decreased energy. She forced herself to press on, so that she could finish her therapy, but when she got home, she remained very weak and became increasingly short of breath with minimal exert ion. Ultimately, the patient was found on a blood pressure monitor to have heart rate in the 30s and low blood pressure. She subsequently presented to the emergency department where she did not specif ically have bradycardia noted, but did have a systolic pressure as low as the mid 50s. HOSPITAL COURSE: The patient was admitted to the hospital for symptomatic bradycardia and hypotensio n. Her workup was notable for a urine that appeared to be consistent with urinary tract infection, a lthough her white count was normal. Chemistries were notable for normal troponins and a BNP of 269. TSH was also checked and was normal at 2.1. Cortisol was noted to be less than 1, although this was a random cortisol level and the patient had been on dexamethasone taper. The patient was still on t he tapering dose of the dexamethasone. The patient remained on telemetry monitoring and was started on IV antibiotics for the urinary tract infection. She had received significant volume resuscitation in the emergency department and her blood pressure had responded. The patient also had her Coreg an d lisinopril held. Of note, the patient had been on the lisinopril for an extended period of time fo r hypertension and Coreg had been relatively recently reduced, because of a slightly reduced ejection fraction at 40%-45%. Without these medications, the patient's heart rate remained normal, as did he r blood pressure. She was seen in consultation by Cardiology. They felt comfortable slowly resuming her medications. I did add back the lisinopril that evening along with the Coreg. The patient did not have any difficulties with 5 mg of lisinopril and 3.125 of the Coreg. She felt well with this. She was also treated with Rocephin for the urinary tract infection. This ultimately proved to be Pro teus and Escherichia coli. Both of these were sensitive to the Rocephin and also had multiple oral o ptions available as well. Cardiology saw the patient again and recommended a 3-week event monitor, manny lopez they will send the patient now and they also recommended adding Lasix 20 b.i.d. with some potass ium. Because the patient remained with the normal blood pressure, normal heart rate, and was feeling better in general, she was felt to be stable for discharge to home. DISPOSITION: The patient will be discharged to home to continue her usual activity level and diet. PHYSICAL EXAMINATION: VITAL SIGNS: On the day of discharge, her temperature is 97.9, pulse 60, respirations 20, O2 sat 92% on room air, BP is 109/61 up to 130/69. GENERAL: She is morbidly obese, but in no distress. HEART: Regular rate and rhythm. LUNGS: Clear bilaterally. ABDOMEN: Benign. EXTREMITIES: There is no edema. Of note, the patient did have a well-healing frontal incisional sca r from the craniotomy that is healing well. DISCHARGE MEDICATIONS: Coreg 3.125 one p.o. b.i.d., lisinopril 5 mg every day, Bactrim-DS 1 p.o. b.i .d., Lasix 20 mg b.i.d., potassium 10 mEq b.i.d., ipratropium nasal spray 1 inhalation as directed, C olace 2 daily, Protonix 40 mg every day, VESIcare 1 every day, citalopram 60 mg q.a.m., Dulcolax p.r. n. q.a.m., lovastatin 1 every day, Zofran p.r.n., Advair Diskus 250/50 two inhalations every day, alb uterol p.r.n., multivitamin daily, Dilantin 300 mg at bedtime, Bunch 5/325 q.4 hours p.r.n., DuoNeb p .r.n., Decadron taper, Agustín Saez p.r.n., Eliquis 5 mg b.i.d., gabapentin 300 mg t.i.d. She is to stop her usual dose of the 20 mg of Lasix and the 6.125 of Coreg in lieu of the new prescriptions. The patient reports she has multiple followups with various physicians this week including Cardiology in few days. The patient is encouraged to return to the hospital should she have any problems prior to that time.
== END 2018-07-20 14:27 | disposition home or self-care (01) ==
LOC: ERS 09:02 → 2SW 11:15
PROVIDERS: ADMIT Internal Medicine; ATTEND Internal Medicine
DX: I95.9 Hypotension, unspecified (principal); R00.1 Bradycardia, unspecified; J44.9 Chronic obstructive pulmonary disease, unspecified; G47.33 Obstructive sleep apnea (adult) (pediatric); I10 Essential (primary) hypertension; E78.5 Hyperlipidemia, unspecified; K21.9 Gastro-esophageal reflux disease without esophagitis; F41.8 Other specified anxiety disorders; E78.00 Pure hypercholesterolemia, unspecified; N39.0 Urinary tract infection, site not specified; B96.20 Unspecified Escherichia coli [E. coli] as the cause of diseases classified elsewhere; B96.4 Proteus (mirabilis) (morganii) as the cause of diseases classified elsewhere; I42.8 Other cardiomyopathies; E66.01 Morbid (severe) obesity due to excess calories; Z68.43 Body mass index [BMI] 50.0-59.9, adult; Z87.891 Personal history of nicotine dependence; Z86.011 Personal history of benign neoplasm of the brain; Z86.711 Personal history of pulmonary embolism; Z79.01 Long term (current) use of anticoagulants; Z79.899 Other long term (current) drug therapy; Z98.890 Other specified postprocedural states
CPT/HCPCS: 36415; 36416; 70450; 71045; 80048; 80053; 81003; 81015; 82533; 82553; 82565; 83605; 83735; 83880; 84443; 84484; 85014; 85018; 85025; 85049; 85610; 85730; 87077; 87086; 87186; 93005; 93306; 94664; 96360; 96361; 96365; 96366; 96374; 96375; 96376; G0378; J0696; J1720; J1885; J3010; J7050; J8540

== ENCOUNTER 2019-01-02 08:45 | Observation (INO) | payer BC ==
[2019-01-02 09:20] LABS: #Eosinphils 0.1 thou/uL (0.0-0.7); #Lymphocytes 2.3 thou/uL (1.20-3.40); #Monocytes 0.5 thou/uL (0.11-0.59); #Neutrophils 4.4 thou/uL (1.40-6.50); %Basophils 0.6 % (0.0-1.0); %Eosinophils 1.8 % (0.0-10.0); %Lymphocytes 31.4 % (21.0-51.0); %Monocytes 6.4 % (0.0-10.0); %Neutrophils 59.8 % (42.0-75.0); Hemoglobin 13.3 g/dL (12.0-16.0); Mean Corpuscular HGB CONC 32.3 g/dL (32.0-36.0); Mean Corpuscular Hemoglobin 28.3 pg (27.0-31.0); Mean Corpuscular Volume 87.8 fL (78.0-98.0); Mean Platelet Volume 8.6 fL (7.4-10.4); Platelet Count 236 thou/uL (130-400); RBC Distribution Width 13.9 % (11.5-14.5); Red Blood Cell (RBC) Count 4.68 mill/uL (4.20-5.40); White Blood Cell (WBC) Count 7.3 thou/uL (4.8-10.8)
[2019-01-02 10:31] LABS: ALT (SGPT) 15 U/L (8-55); AST (SGOT) 18 U/L (5-34); Albumin 4.4 g/dL (3.4-4.8); Alkaline Phosphatase 105 U/L (40-150); Anion Gap 13 mmol/L (10-20); BUN (Urea Nitrogen) 26 mg/dL (9.8-20.1); Bilirubin, Total 0.4 mg/dL (0.2-1.2); CK (CPK) 74 U/L (29-168); Calc. Creatinine Clearance 0 mL/min (70-130); Calcium 10.3 mg/dL (7.8-10.44); Carbon Dioxide 28 mmol/L (23-31); Chloride 105 mmol/L (98-107); Estimated GFR-MDRD 86; Globulin 3.3 g/dL (2.4-3.5); Glucose 100 mg/dL (80-115); Lipase 82 U/L (8-78); Potassium 3.9 mmol/L (3.5-5.1); Protein, Total 7.7 g/dL (6.0-8.3); Sodium 142 mmol/L (136-145)
[2019-01-02] MEDS ORDERED: Aspirin Chewable 81 MG TAB ONE (11:02)
[2019-01-02] MEDS ORDERED: Nitroglycerin 0.4 MG TAB 1 EACH ONE (11:03)
--- NOTE | 2019-01-02 11:13 | CT ---
CT ARTERIOGRAM CHEST WITH IV COTNRAST AND 3D MIP IMAGING: History Chest pain. Prior pulmonary emboli. COMPARISON: 06/29/2018. FINDINGS: There is good contrast opacification of the pulmonary arteries and thoracic aorta with normal branchi ng of the great vessels. Mild arterial calcification. No pleural fluid, pneumothorax, or mediastina l adenopathy. IMPRESSION: No CT evidence of pulmonary embolus. POS: EDWARD
[2019-01-02] MEDS ORDERED: Nitroglycerin 2% Ointment 1 INCH/1 GM Packet ONE (11:37)
[2019-01-02 12:59] LABS: PTT 31.1 SEC (22.9-36.1); Prothrombin Time 12.8 SEC (12.0-14.7)
[2019-01-02 13:43] LABS: Troponin I Less than 0.010 ng/mL (< 0.028)
[2019-01-02] MEDS ORDERED: ISOVUE-370 76%-LOCM 1 ML ONE (14:48)
[2019-01-02] MEDS ORDERED: HYDROcodone/Acetaminophen 5/325 mg Tablet PO PRN (15:01)
[2019-01-02] MEDS ORDERED: Senokot S 8.6-50 MG TAB PO PRN (15:01)
[2019-01-02] MEDS ORDERED: Acetaminophen 325 MG TAB PO PRN (15:01)
[2019-01-02 16:20] VITALS: BMI 47.7
[2019-01-02 16:26] LABS: Troponin I Less than 0.010 ng/mL (< 0.028)
[2019-01-02] MEDS: Famotidine 20 MG TAB PO SCH (21:00)
[2019-01-02] MEDS ORDERED: Docusate 100 MG CAP PO SCH (21:45)
[2019-01-02] MEDS ORDERED: Apixaban 5 MG TAB PO SCH (21:45)
[2019-01-02] MEDS ORDERED: Furosemide 20 MG TAB PO SCH (21:45)
[2019-01-02] MEDS ORDERED: Potassium Chloride 10 MEQ TAB PO SCH (21:45)
[2019-01-02] MEDS ORDERED: Carvedilol 3.125 MG TAB PO SCH (21:45)
[2019-01-02] MEDS ORDERED: Simvastatin 20 MG TAB PO SCH (21:45)
[2019-01-02] MEDS ORDERED: Citalopram 20 MG TAB PO SCH (21:45)
--- NOTE | 2019-01-02 22:26 | HP ---
PRIMARY CARE PHYSICIAN: Rich Valentine MD CHIEF COMPLAINT: Chest pain. HISTORY OF PRESENT ILLNESS: Ms. Smith is a very pleasant 63-year-old female, who reported to the emergency room this morning after experiencing right-sided chest pain that radiated out to bilateral arms. Reports that chest pain was sharp in nature, took her breath away. Reports that she had a hard time catching her breath. Reports palpitations. Reports pain really did not get better and so she was given nitroglycerin in the emergency room. The patient has a pertinent recent history of a saddle PE last summer and has been on Eliquis for the past 6 months. She had a stress test done as an outpatient with Dr. Spring and he had scheduled for a cardiac cath on January 21. The patient also has a history of craniotomy for resection of meningioma. The patient had CTA in the emergency room, which was negative for emboli. First troponin was also undetectable. EKG shows a normal sinus rhythm, beats per minute 70, frequent premature ventricular complexes, consecutive PVCs and fusion complexes, normal ST-segment, and T-wave axis is normal. Based on history presentation, the patient was admitted to the observation unit for further management. PAST MEDICAL HISTORY: Includes COPD, obstructive sleep apnea, hypertension, dyslipidemia, GERD, history of meningioma, saddle emboli, anxiety, depression, urinary tract infection, nonischemic cardiomyopathy with an EF of 40% to 45%. PAST SURGICAL HISTORY: Craniotomy for meningioma, cholecystectomy, bilateral knee replacements, tonsillectomy, tubal ligation, and breast reduction. PSYCHIATRIC HISTORY: As above, history of depression. ALLERGIES: NO KNOWN DRUG ALLERGIES. HOME MEDICATIONS: Have not been verified at this time. The patient does take medications for hypertension. Does take some Lasix, Coreg, Eliquis. Full list will be updated when verified with the patient. SOCIAL HISTORY: The patient lives at home with her family. She is a full code. REVIEW OF SYSTEMS: CONSTITUTIONAL: The patient denies chills or fever. EYES: Denies any eye redness or vision changes. ENT: Denies any drooling or epistaxis. CARDIOVASCULAR: Does report some chest pain. Does report palpitations. Denied syncope. RESPIRATORY: Denies shortness of breath. MUSCULOSKELETAL: Denies arthralgias or myalgias. SKIN: Denies any skin changes or rash. NEUROLOGIC: Denies any focal weakness. Denies seizures. All other systems are reviewed and are negative unless mentioned in the HPI. PHYSICAL EXAMINATION: VITAL SIGNS: Blood pressure 119/69, pulse is 61, O2 sats are 96% on 1 L, and temp 98.2. CONSTITUTIONAL: The patient is in no acute distress. Denies fever or chills. HEENT: Head; atraumatic, normocephalic. Eyes; extraocular muscles are intact. ENT; mouth exam is normal. Mucous membranes are moist. NECK: Normal range of motion. Trachea is midline. RESPIRATORY: No respiratory distress. Breath sounds are clear. CARDIOVASCULAR: Regular rate and rhythm. Heart sounds are normal. ABDOMEN: Soft, nontender. No distention. BACK: Normal range of motion. EXTREMITIES: Upper extremity; normal range of motion. Motor strength is normal. Pulses are equal bilaterally. Lower extremity, normal range of motion. Motor strength is normal. Pedal pulses are equal bilaterally. NEURO: The patient is alert and oriented to person, place, and time. Speech is normal. SKIN: Warm, dry, and normal in color. LABORATORY DATA: Troponin x1 is undetectable. PTT is 31.1. INR is 1. Prothrombin time is 12.8. Lipase is 82. CK is 74. Sodium 142, potassium 3.9, chloride 105 , carbon dioxide is 28, gap is 13, BUN is 26, creatinine 0.69, estimated GFR is 86. Liver enzymes are unremarkable. Glucose is 100, calcium 10.3. White blood cell count is 7.3, red blood cell count is 4.68, hemoglobin 13.3, hematocrit 41.1, and platelet count is 236. ASSESSMENT AND PLAN: 1. Chest pain. We will trend troponins. We will consult Dr. Spring as she has had an echocardiogram and a stress test, which per patient was positive and she had a cardiac cath scheduled for later this month. We will appreciate his input. We will order nitroglycerin paste. 2. Hypertension. We will continue home medications. We will supplement with p.r.n. medications as needed. 3. Hyperlipidemia. We will continue home medications. 4. Cardiomyopathy. We will continue home medications. Trend vital signs. 5. Anticoagulation therapy. We will hold Eliquis until Dr. Spring has seen patient. We will start Lovenox for deep venous thrombosis prophylaxis. 6. We will start gastrointestinal prophylaxis Hospital course is dependent on clinical findings Job ID: [id number] [facility]
[2019-01-03 06:00] LABS: #Eosinphils 0.2 thou/uL (0.0-0.7); #Lymphocytes 2.2 thou/uL (1.20-3.40); #Monocytes 0.5 thou/uL (0.11-0.59); #Neutrophils 4.5 thou/uL (1.40-6.50); %Basophils 0.5 % (0.0-1.0); %Eosinophils 2.5 % (0.0-10.0); %Lymphocytes 29.4 % (21.0-51.0); %Monocytes 6.7 % (0.0-10.0); %Neutrophils 60.9 % (42.0-75.0); Hemoglobin 12.3 g/dL (12.0-16.0); Mean Corpuscular HGB CONC 32.4 g/dL (32.0-36.0); Mean Corpuscular Hemoglobin 28.9 pg (27.0-31.0); Mean Corpuscular Volume 89.2 fL (78.0-98.0); Mean Platelet Volume 8.6 fL (7.4-10.4); Platelet Count 218 thou/uL (130-400); RBC Distribution Width 14.1 % (11.5-14.5); Red Blood Cell (RBC) Count 4.25 mill/uL (4.20-5.40); White Blood Cell (WBC) Count 7.4 thou/uL (4.8-10.8)
[2019-01-03 06:20] LABS: ALT (SGPT) 13 U/L (8-55); AST (SGOT) 15 U/L (5-34); Albumin 3.7 g/dL (3.4-4.8); Alkaline Phosphatase 90 U/L (40-150); Anion Gap 12 mmol/L (10-20); BUN (Urea Nitrogen) 17 mg/dL (9.8-20.1); Bilirubin, Total 0.4 mg/dL (0.2-1.2); Calc. Creatinine Clearance 163 mL/min (70-130); Calcium 9.3 mg/dL (7.8-10.44); Carbon Dioxide 28 mmol/L (23-31); Chloride 106 mmol/L (98-107); Estimated GFR-MDRD Greater than 90; Globulin 2.9 g/dL (2.4-3.5); Glucose 102 mg/dL (80-115); Potassium 3.8 mmol/L (3.5-5.1); Protein, Total 6.6 g/dL (6.0-8.3); Sodium 142 mmol/L (136-145)
[2019-01-03 08:14] LABS: Cardiac Risk 3.4 (Less than 4.5)
[2019-01-03] MEDS: Carvedilol 3.125 MG TAB PO SCH ×2 (08:19→17:16)
[2019-01-03] MEDS: Potassium Chloride 10 MEQ TAB PO SCH ×2 (08:22→17:16)
[2019-01-03] MEDS: Apixaban 5 MG TAB PO SCH ×2 (08:22→20:55)
[2019-01-03] MEDS: Docusate 100 MG CAP PO SCH (08:23)
[2019-01-03] MEDS: Multivit, Therapeutic 1 TAB PO SCH (08:23)
[2019-01-03] MEDS: Famotidine 20 MG TAB PO SCH ×2 (08:23→20:56)
[2019-01-03] MEDS ORDERED: Lisinopril 2.5 MG TAB PO SCH (09:00)
[2019-01-03] MEDS ORDERED: Enoxaparin Sodium 40 MG/0.4 ML SYRINGE SC SCH (09:00)
--- NOTE | 2019-01-03 11:54 | PDOC.PN ---
- Subjective Encounter Start Date: 01/03/19 Encounter Start Time: 11:30 Subjective: Examined this AM, denies CP, SOB -: Endorses feeling anxious, is tearful -: Denies abd pain, n/v, is hungry - Objective Resuscitation Status - Order Detail: 01/02/19 15:01 Resuscitation Status Routine Co-Sign Provider: Resuscitation Status: FULL: Full Resuscitation Discussed with: patient and daughter who is surrogate decision maker Vital Signs & Weight: Vital Signs (12 hours) Temp Pulse Resp BP Pulse Ox 01/03/19 09:35 98/53 L 01/03/19 07:30 98.2 F 69 20 93/50 L 95 01/03/19 03:48 98.6 F 70 20 103/55 L 92 L Weight Weight 109.905 kg I&O: 01/02/19 01/03/19 01/04/19 06:59 06:59 06:59 Intake Total 815 Output Total 700 Balance 115 Result Diagrams: 01/03/19 05:15 01/03/19 05:15 Phys Exam - Physical Examination HEENT: PERRLA, moist MMs Neck: no nodes, no JVD Respiratory: no wheezing, clear to auscultation bilateral Cardiovascular: RRR, no significant murmur Gastrointestinal: soft, non-tender Musculoskeletal: no edema, pulses present Neurological: non-focal, moves all 4 limbs Psychiatric: A&O x 3 Deviation from normal: anxious, tearful Skin: no rash, normal turgor Dx/Plan (1) Chest pain Code(s): R07.9 - CHEST PAIN, UNSPECIFIED Status: Acute (2) History of pulmonary embolus (PE) Code(s): Z86.711 - PERSONAL HISTORY OF PULMONARY EMBOLISM Status: Chronic Comment: On anticoagulation. (3) HLD (hyperlipidemia) Code(s): E78.5 - HYPERLIPIDEMIA, UNSPECIFIED Status: Chronic (4) HTN (hypertension) Code(s): I10 - ESSENTIAL (PRIMARY) HYPERTENSION Status: Chronic Comment: Resume the lisinopril at lower dose. BP has been good off of meds. (5) RAVIN (obstructive sleep apnea) Code(s): G47.33 - OBSTRUCTIVE SLEEP APNEA (ADULT) (PEDIATRIC) Status: Chronic Comment: Continue CPAP - Plan Cardiology consult, will monitor VS, labs -: Added Ativan 0.5mg as needed for anxiety, reports not sleeping -: Discussed case with MARVA Jacob and Dr. Chase * .
[2019-01-03] MEDS: Lorazepam 0.5 MG TAB PO PRN ×3 (12:33→21:19)
[2019-01-03] MEDS ORDERED: Citalopram 20 MG TAB PO SCH ×2 (13:00→21:00)
[2019-01-03] MEDS: Furosemide 20 MG TAB PO SCH ×2 (14:06)
[2019-01-03] MEDS: Simvastatin 20 MG TAB PO SCH (20:56)
[2019-01-03] MEDS: Lisinopril 2.5 MG TAB PO SCH (20:58)
[2019-01-04] MEDS: Lorazepam 0.5 MG TAB PO PRN ×3 (04:44→20:50)
[2019-01-04 05:37] LABS: #Eosinphils 0.2 thou/uL (0.0-0.7); #Lymphocytes 2.8 thou/uL (1.20-3.40); #Monocytes 0.6 thou/uL (0.11-0.59); #Neutrophils 4.9 thou/uL (1.40-6.50); %Basophils 0.5 % (0.0-1.0); %Eosinophils 2.4 % (0.0-10.0); %Lymphocytes 32.9 % (21.0-51.0); %Monocytes 7.5 % (0.0-10.0); %Neutrophils 56.8 % (42.0-75.0); Hemoglobin 12.5 g/dL (12.0-16.0); Mean Corpuscular HGB CONC 32.7 g/dL (32.0-36.0); Mean Corpuscular Hemoglobin 28.9 pg (27.0-31.0); Mean Corpuscular Volume 88.4 fL (78.0-98.0); Mean Platelet Volume 8.6 fL (7.4-10.4); Platelet Count 226 thou/uL (130-400); RBC Distribution Width 14.1 % (11.5-14.5); Red Blood Cell (RBC) Count 4.31 mill/uL (4.20-5.40); White Blood Cell (WBC) Count 8.6 thou/uL (4.8-10.8)
[2019-01-04 06:02] LABS: ALT (SGPT) 15 U/L (8-55); AST (SGOT) 15 U/L (5-34); Albumin 3.9 g/dL (3.4-4.8); Alkaline Phosphatase 96 U/L (40-150); Anion Gap 14 mmol/L (10-20); BUN (Urea Nitrogen) 22 mg/dL (9.8-20.1); Bilirubin, Total 0.3 mg/dL (0.2-1.2); Calc. Creatinine Clearance 158 mL/min (70-130); Calcium 9.4 mg/dL (7.8-10.44); Carbon Dioxide 26 mmol/L (23-31); Chloride 103 mmol/L (98-107); Estimated GFR-MDRD Greater than 90; Glucose 102 mg/dL (80-115); Potassium 3.8 mmol/L (3.5-5.1); Protein, Total 6.9 g/dL (6.0-8.3); Sodium 139 mmol/L (136-145)
[2019-01-04] MEDS: Citalopram 20 MG TAB PO SCH (08:20)
[2019-01-04] MEDS: Docusate 100 MG CAP PO SCH (08:20)
[2019-01-04] MEDS: Famotidine 20 MG TAB PO SCH ×2 (08:20→20:48)
[2019-01-04] MEDS: Carvedilol 3.125 MG TAB PO SCH ×2 (08:20→16:30)
[2019-01-04] MEDS: Potassium Chloride 10 MEQ TAB PO SCH ×2 (08:20→16:30)
[2019-01-04] MEDS: Apixaban 5 MG TAB PO SCH (08:20)
[2019-01-04] MEDS: Furosemide 20 MG TAB PO SCH ×2 (08:21→15:03)
[2019-01-04] MEDS: Multivit, Therapeutic 1 TAB PO SCH (08:21)
--- NOTE | 2019-01-04 12:28 | PDOC.PN ---
- Subjective Encounter Start Date: 01/04/19 Encounter Start Time: 10:26 Subjective: Patient reports intermittent tingling/pain in both hands/fingers. -: No discoloration. States causes her to panic but ativan helping. -: No further pain in her arms. No redness/swelling. No CP/SOB. Reports having a difficult time eating. Has only had 300 calories per day since admission due to limited food options. States she is on a Keto diet. No abdominal pain. No urinary symptoms or bowel changes. Full bowel movement this morning. Mild straining. No melena or BRPR. - Objective Resuscitation Status - Order Detail: 01/02/19 15:01 Resuscitation Status Routine Co-Sign Provider: Resuscitation Status: FULL: Full Resuscitation Discussed with: patient and daughter who is surrogate decision maker Vital Signs & Weight: Vital Signs (12 hours) Temp Pulse Resp BP BP Pulse Ox 01/04/19 10:15 68 115/55 L 01/04/19 07:50 97.8 F 72 18 117/59 L 95 01/04/19 04:14 97.6 F 70 20 107/57 L 93 L Weight Weight 243 lb 3.2 oz I&O: 01/03/19 01/04/19 01/05/19 06:59 06:59 06:59 Intake Total 815 1200 Output Total 700 1700 Balance 115 -500 Result Diagrams: 01/04/19 04:55 01/04/19 04:55 Phys Exam - Physical Examination Constitutional: NAD Found resting comfortably in bed. HEENT: PERRLA, oral pharynx no lesions Neck: supple, full ROM Respiratory: clear to auscultation bilateral On 2 L NC. Cardiovascular: RRR Gastrointestinal: soft, non-tender, no distention, positive bowel sounds Obese Musculoskeletal: no edema, pulses present Neurological: normal sensation, moves all 4 limbs Psychiatric: normal affect, A&O x 3 Skin: no rash Dx/Plan (1) Bilateral hand pain Code(s): M79.641 - PAIN IN RIGHT HAND; M79.642 - PAIN IN LEFT HAND Status: Acute (2) ICH (intracerebral hemorrhage) Code(s): I61.9 - NONTRAUMATIC INTRACEREBRAL HEMORRHAGE, UNSPECIFIED Status: Chronic Comment: stable (3) Left ventricular dysfunction with reduced left ventricular function Code(s): I51.9 - HEART DISEASE, UNSPECIFIED Status: Chronic Comment: EF 40- 45%. Continue with the ACEI at lower dose. Resume the Coreg this evening. (4) HLD (hyperlipidemia) Code(s): E78.5 - HYPERLIPIDEMIA, UNSPECIFIED Status: Chronic (5) HTN (hypertension) Code(s): I10 - ESSENTIAL (PRIMARY) HYPERTENSION Status: Chronic Comment: Resume the lisinopril at lower dose. BP has been good off of meds. (6) History of pulmonary embolus (PE) Code(s): Z86.711 - PERSONAL HISTORY OF PULMONARY EMBOLISM Status: Chronic Comment: On anticoagulation. (7) RAVIN (obstructive sleep apnea) Code(s): G47.33 - OBSTRUCTIVE SLEEP APNEA (ADULT) (PEDIATRIC) Status: Chronic Comment: Continue CPAP - Plan cont current plan of care, incentive spirometry On anticoagulation with Apixaban 5 mg BID. CTPA negative for PE. -: Consult rail car repairman re: Keto diet, with limited food options and low intake. -: Awaiting cardiology review. ADDENDUM: Seen by Dr. Chase who feels hand pain is not cardiac in nature. Advised EMG as outpatient. Patient states per Dr. Davalos she is to undergo catheterization tomorrow. Has been placed NPO by Dr. Davalos starting at midnight today.
[2019-01-04] MEDS ORDERED: Communication Order-Pharmacy FS SCH (14:30)
[2019-01-04] MEDS ORDERED: Sodium Chloride 0.9% 1,000 ML IV SCH (14:30)
--- NOTE | 2019-01-04 16:30 | PDOC.EVN ---
Event Note - Event Note Event Note: Evaluated patient due to hand tingling. She says she has had this for several months now. It will usually start with some tingling which is painful and then it goes numb. She says her hands are also very cold, and at times she has to wear gloves to keep them warm. She says she had a similar problem in her feet, and at times it is painful for things to touch them. This time the pain went up her arm, and across a chest. 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 She has good capillary refill, and negative Tinnels, and Phalen's test. TSH is normal, and random blood glucose is also normal Plan- her finger symptoms do not sound cardiac in nature. I would recommend outpatient evaluation with EMG. ( Nerve Conduction Velocities )
[2019-01-04] MEDS: Lisinopril 2.5 MG TAB PO SCH (20:48)
[2019-01-04] MEDS: Simvastatin 20 MG TAB PO SCH (20:49)
--- NOTE | 2019-01-05 00:07 | CON ---
DATE OF CONSULTATION: REASON FOR CONSULTATION: Recurrent chest pain. HISTORY OF PRESENT ILLNESS: Ms. Smith is a very pleasant 63-year-old woman, who is a patient of Dr. Shankar Spring. She recently presented with chest pain. She states she was vacuuming and she started to develop pain in her fingertips. It went to her chest. She has been seen and evaluated by Dr. Shankar Spring recently. She underwent a noninvasive stress study with normal LVEF of 49%. She did have an ischemia present in the inferior wall. She was set up for angiography. PAST MEDICAL HISTORY: Hypertension, hyperlipidemia, anxiety disorder, obstructive sleep apnea, PE, craniotomy for meningioma, cholecystectomy, tonsillectomy, breast reduction, BTL. ALLERGIES: NONE. REVIEW OF SYSTEMS: A 10-point review of systems is reviewed and as above, otherwise negative. HOME MEDICATIONS: Include: 1. Coreg. 2. Lasix. 3. Potassium. 4. Protonix. 5. VESIcare. 6. . 7. Eliquis. 8. Stool softener. 9. Lisinopril. 10. Lovastatin. 11. Advair. 12. ProAir. 13. Zofran. 14. Isosorbide. PHYSICAL EXAMINATION: GENERAL: Patient is a pleasant 63-year-old, who is in no acute distress. The patient appears their stated age. VITAL SIGNS: Blood pressure 115/55, pulse of 72. NEUROLOGIC: The patient is alert and oriented x3 with no focal neurologic deficits. HEENT: Sclerae without icterus. Mouth has moist mucous membranes with normal pallor. NECK: No JVD. Carotid upstroke brisk. No bruits bilaterally. LUNGS: Clear to auscultation with unlabored respirations. BACK: No scoliosis or kyphosis. CARDIAC: Regular rate and rhythm with normal S1 and S2. No S3 or S4 noted. No significant rubs, murmurs, thrills, or gallops noted throughout the precordium. PMI is not displaced. There is no parasternal heave. ABDOMEN: Soft, nontender, nondistended. No peritoneal signs present. No hepatosplenomegaly. No abnormal striae. EXTREMITIES: 2+ femoral and 2+ dorsalis pedis pulses. No cyanosis, clubbing, or edema. SKIN: No gross abnormalities. PERTINENT LABORATORY DATA: Hemoglobin 12.5. Creatinine 0.65. DIAGNOSTIC STUDIES: EKG; normal sinus rhythm, normal EKG. IMPRESSION: 1. Recurrent chest pain. 2. Previous history of pulmonary embolism, on anticoagulation therapy. 3. Obesity. RECOMMENDATIONS: At this point, given that she had angiography set up, we will proceed. I discussed the proceedings in full detail with Ms. Smith. Risks included, but not limited to consent. All questions were answered. She did receive a dose of Eliquis this morning. We will discontinue Eliquis and add Lovenox. We will leave it to the discretion of Dr. Shankar Spring to proceed with angio on Saturday or radial approach in a.m. Job ID: [id number]
[2019-01-05 04:38] LABS: #Eosinphils 0.2 thou/uL (0.0-0.7); #Lymphocytes 3.1 thou/uL (1.20-3.40); #Monocytes 0.6 thou/uL (0.11-0.59); %Basophils 0.5 % (0.0-1.0); %Eosinophils 2.2 % (0.0-10.0); %Lymphocytes 34.7 % (21.0-51.0); %Monocytes 7.2 % (0.0-10.0); %Neutrophils 55.4 % (42.0-75.0); Hemoglobin 12.6 g/dL (12.0-16.0); Mean Corpuscular HGB CONC 32.7 g/dL (32.0-36.0); Mean Corpuscular Volume 88.6 fL (78.0-98.0); Mean Platelet Volume 8.4 fL (7.4-10.4); Platelet Count 231 thou/uL (130-400); RBC Distribution Width 14.1 % (11.5-14.5); Red Blood Cell (RBC) Count 4.36 mill/uL (4.20-5.40)
[2019-01-05 04:58] LABS: ALT (SGPT) 15 U/L (8-55); AST (SGOT) 16 U/L (5-34); Alkaline Phosphatase 95 U/L (40-150); Anion Gap 15 mmol/L (10-20); BUN (Urea Nitrogen) 28 mg/dL (9.8-20.1); Bilirubin, Total 0.5 mg/dL (0.2-1.2); Calc. Creatinine Clearance 130 mL/min (70-130); Calcium 9.7 mg/dL (7.8-10.44); Carbon Dioxide 25 mmol/L (23-31); Chloride 102 mmol/L (98-107); Estimated GFR-MDRD 76; Globulin 3.1 g/dL (2.4-3.5); Glucose 102 mg/dL (80-115); Potassium 3.8 mmol/L (3.5-5.1); Protein, Total 7.1 g/dL (6.0-8.3); Sodium 138 mmol/L (136-145)
[2019-01-05] MEDS: Citalopram 20 MG TAB PO SCH (06:04)
[2019-01-05] MEDS: Multivit, Therapeutic 1 TAB PO SCH (06:04)
[2019-01-05] MEDS: Famotidine 20 MG TAB PO SCH ×2 (06:04→21:18)
[2019-01-05] MEDS: Carvedilol 3.125 MG TAB PO SCH ×2 (06:05→17:23)
[2019-01-05] MEDS: Sodium Chloride 0.9% 1,000 ML IV SCH ×2 (06:07→09:55)
[2019-01-05] MEDS ORDERED: Heparin 10,000 UNITS/1 ML VIAL ONE (06:52)
[2019-01-05] MEDS ORDERED: Nitroglycerin 100MG/250ML BOT 250 ML ONE (06:52)
[2019-01-05] MEDS ORDERED: Verapamil 5 MG/2 ML VIAL ONE (06:52)
[2019-01-05] MEDS ORDERED: Fentanyl 100 MCG/2 ML VIAL ONE (07:27)
[2019-01-05] MEDS ORDERED: Midazolam HCl 2 mg/2 ml Vial ONE (07:27)
[2019-01-05] MEDS ORDERED: Ondansetron PF 4 MG/2 ML Vial ONE (08:03)
[2019-01-05] MEDS ORDERED: Nitroglycerin 0.4 MG TAB (25 Tab Bottle) SL PRN (08:07)
[2019-01-05] MEDS ORDERED: traMADol HCl 50 MG TAB PO PRN (08:07)
[2019-01-05] MEDS ORDERED: Acetaminophen/Codeine 30-300mg Tablet PO PRN ×2 (08:07)
[2019-01-05] MEDS ORDERED: Sodium Chloride 0.9% 200 ML IV SCH (08:15)
[2019-01-05] MEDS: Furosemide 20 MG TAB PO SCH ×2 (10:24→16:37)
[2019-01-05] MEDS: Potassium Chloride 10 MEQ TAB PO SCH ×2 (10:25→17:23)
[2019-01-05] MEDS: Docusate 100 MG CAP PO SCH (10:25)
[2019-01-05] MEDS ORDERED: Iopamidol 370 76% 100 ML VIAL ONE (12:08)
--- NOTE | 2019-01-05 18:22 | PDOC.PN ---
- Subjective Encounter Start Date: 01/05/19 Encounter Start Time: 18:21 Subjective: Patient sitting up in chair, unremarkable heart cath with EF 40-45%. -: She denies chest pain, shortness of breath with exertion which is her BL -: BP has been low since heart cath currently SBP 100 - Objective Resuscitation Status - Order Detail: 01/02/19 15:01 Resuscitation Status Routine Co-Sign Provider: Resuscitation Status: FULL: Full Resuscitation Discussed with: patient and daughter who is surrogate decision maker MAR Reviewed: Yes Vital Signs & Weight: Vital Signs (12 hours) Temp Pulse Resp BP BP BP Pulse Ox 01/05/19 15:19 97.9 F 67 16 100/52 L 92 L 01/05/19 12:12 98.0 F 56 L 20 92/50 L 95 01/05/19 10:23 85/53 L 01/05/19 09:05 67 14 Weight Weight 237 lb 4.8 oz I&O: 01/04/19 01/05/19 01/06/19 06:59 06:59 06:59 Intake Total 1200 1570 1563 Output Total 1700 3300 100 Balance -500 -1730 1463 Result Diagrams: 01/05/19 04:28 01/05/19 04:28 Radiology Reviewed by me: Yes Phys Exam - Physical Examination Constitutional: NAD HEENT: PERRLA, oral pharynx no lesions Neck: no nodes, no JVD, full ROM Respiratory: no wheezing, clear to auscultation bilateral 2L via nasal cannula Cardiovascular: RRR, no significant murmur Gastrointestinal: soft, non-tender, positive bowel sounds Musculoskeletal: no edema, pulses present Neurological: non-focal, normal sensation, moves all 4 limbs Lymphatic: no nodes Psychiatric: normal affect, A&O x 3 Skin: no rash, cap refill <2 seconds Dx/Plan (1) Systolic heart failure Code(s): I50.20 - UNSPECIFIED SYSTOLIC (CONGESTIVE) HEART FAILURE Status: Acute (2) Bilateral hand pain Code(s): M79.641 - PAIN IN RIGHT HAND; M79.642 - PAIN IN LEFT HAND Status: Acute (3) Chest pain Code(s): R07.9 - CHEST PAIN, UNSPECIFIED Status: Acute (4) Hypotension Status: Acute Comment: Meds held. Will resume the Lisinopril at 5 mg. Has been on a steroid taper. Will add some hydrocortisone. (5) Saddle pulmonary embolus Code(s): I26.92 - SADDLE EMBOLUS OF PULMONARY ARTERY W/O ACUTE COR PULMONALE Status: Acute Qualifiers: Chronicity: acute Comment: on Lovenox BID per PCCM - Plan cont current plan of care * Cardiology signed off, heart cath showed no significant stenosis with EF 40-45 % * She may restart anticoagulation tomorrow * Hold discharge due to hypotension, monitor vitals * Possible d/c in am
[2019-01-05] MEDS: Lorazepam 0.5 MG TAB PO PRN (21:18)
[2019-01-05] MEDS: Simvastatin 20 MG TAB PO SCH (21:18)
[2019-01-05] MEDS: Lisinopril 2.5 MG TAB PO SCH (21:19)
[2019-01-06] MEDS: Docusate 100 MG CAP PO SCH (09:32)
[2019-01-06] MEDS: Famotidine 20 MG TAB PO SCH (09:32)
[2019-01-06] MEDS: Potassium Chloride 10 MEQ TAB PO SCH (09:32)
[2019-01-06] MEDS: Multivit, Therapeutic 1 TAB PO SCH (09:32)
[2019-01-06] MEDS: Citalopram 20 MG TAB PO SCH (09:33)
[2019-01-06] MEDS: Carvedilol 3.125 MG TAB PO SCH (09:33)
[2019-01-06] MEDS: Furosemide 20 MG TAB PO SCH (09:33)
[2019-01-06] MEDS: Lorazepam 0.5 MG TAB PO PRN (09:34)
[2019-01-06 12:39] VITALS: BP 111/61; TEMP 98
--- NOTE | 2019-01-10 17:52 | EKG ---
Test Reason : Blood Pressure : / mmHG Vent. Rate : 070 BPM Atrial Rate : 070 BPM P-R Int : 186 ms QRS Dur : 098 ms QT Int : 398 ms P-R-T Axes : 000 006 052 degrees QTc Int : 429 ms Sinus rhythm with frequent , and consecutive Premature ventricular complexes and Fusion complexes Abnormal ECG Confirmed by RAISA FITZGERALD, SALINAS ([id number]), publication editor HANSEL BINGHAM ([id number]) on 01/10/2019 5:51:19 PM Referred By: Confirmed By:SALINAS KLINE MD
== END 2019-01-06 13:00 | disposition home or self-care (01) ==
LOC: ERS 08:45 → 2SW 14:55
PROVIDERS: ADMIT Internal Medicine; ATTEND Internal Medicine Cardiovascular Disease
PROC: 4A023N7 Measurement of Cardiac Sampling and Pressure, Left Heart, Percutaneous Approach (ICD-10-PCS; principal; 2019-01-05)
PROC: B2101ZZ Fluoroscopy of Single Coronary Artery using Low Osmolar Contrast (ICD-10-PCS; 2019-01-05)
DX: R07.9 Chest pain, unspecified (principal); I11.0 Hypertensive heart disease with heart failure; I50.21 Acute systolic (congestive) heart failure; I42.0 Dilated cardiomyopathy; J44.9 Chronic obstructive pulmonary disease, unspecified; G47.33 Obstructive sleep apnea (adult) (pediatric); E78.5 Hyperlipidemia, unspecified; K21.9 Gastro-esophageal reflux disease without esophagitis; F41.9 Anxiety disorder, unspecified; F32.9 Major depressive disorder, single episode, unspecified; E66.9 Obesity, unspecified; Z68.42 Body mass index [BMI] 45.0-49.9, adult; Z90.49 Acquired absence of other specified parts of digestive tract; Z86.711 Personal history of pulmonary embolism; Z96.653 Presence of artificial knee joint, bilateral; Z90.89 Acquired absence of other organs; Z98.51 Tubal ligation status; Z79.01 Long term (current) use of anticoagulants; Z79.899 Other long term (current) drug therapy; Z98.890 Other specified postprocedural states
CPT/HCPCS: 36415; 71275; 80053; 80061; 82550; 83690; 84443; 84484; 85025; 85610; 85730; 93005; 93458; 96360; 96361; 99152; C1769; G0378; J1644; J2250; J2405; J3010; Q9966; Q9967

== ENCOUNTER 2019-05-05 19:58 | Emergency (ER) | payer BC, SELFPAY ==
[2019-05-05] MEDS ORDERED: Ketorolac Tromethamine 30 MG/ML VIAL ONE (20:38)
[2019-05-05 21:23] LABS: #Eosinphils 0.2 thou/uL (0.0-0.7); #Lymphocytes 2.9 thou/uL (1.20-3.40); %Basophils 0.3 % (0.0-1.0); %Eosinophils 1.7 % (0.0-10.0); %Monocytes 8.9 % (0.0-10.0); %Neutrophils 63.1 % (42.0-75.0); Hemoglobin 13.6 g/dL (12.0-16.0); Mean Corpuscular Hemoglobin 30.1 pg (27.0-31.0); Mean Corpuscular Volume 88.7 fL (78.0-98.0); Mean Platelet Volume 8.2 fL (7.4-10.4); Platelet Count 248 thou/uL (130-400); RBC Distribution Width 13.2 % (11.5-14.5)
[2019-05-05 21:47] LABS: ALT (SGPT) 19 U/L (8-55); AST (SGOT) 17 U/L (5-34); Albumin 4.6 g/dL (3.4-4.8); Alkaline Phosphatase 108 U/L (40-150); Anion Gap 15 mmol/L (10-20); BUN (Urea Nitrogen) 20 mg/dL (9.8-20.1); Bilirubin, Total 0.5 mg/dL (0.2-1.2); Calc. Creatinine Clearance 0 mL/min (70-130); Calcium 10.4 mg/dL (7.8-10.44); Carbon Dioxide 30 mmol/L (23-31); Chloride 102 mmol/L (98-107); Estimated GFR-MDRD 77; Globulin 3.6 g/dL (2.4-3.5); Glucose 121 mg/dL (80-115); Potassium 3.9 mmol/L (3.5-5.1); Protein, Total 8.2 g/dL (6.0-8.3); Sodium 143 mmol/L (136-145)
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
== END 2019-05-05 23:47 | disposition home or self-care (01) ==
LOC: ERS 19:58
DX: S40.211A Abrasion of right shoulder, initial encounter (principal); K21.9 Gastro-esophageal reflux disease without esophagitis; E78.5 Hyperlipidemia, unspecified; E78.2 Mixed hyperlipidemia; I10 Essential (primary) hypertension; J44.9 Chronic obstructive pulmonary disease, unspecified; Z86.711 Personal history of pulmonary embolism; G47.30 Sleep apnea, unspecified; F32.9 Major depressive disorder, single episode, unspecified; Z87.891 Personal history of nicotine dependence; Z79.899 Other long term (current) drug therapy; Z79.01 Long term (current) use of anticoagulants; V43.52XA Car driver injured in collision with other type car in traffic accident, initial encounter
CPT/HCPCS: 36415; 70450; 71260; 72125; 74177; 80053; 85025; 96374; J1885

== ENCOUNTER 2019-05-06 16:50 | Outpatient (CLI) | payer BC ==
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
== END 2019-05-06 16:51 | disposition home or self-care (01) ==
LOC: SCSRAD 16:50
PROVIDERS: ATTEND Family Medicine
DX: M79.642 Pain in left hand (principal)

== ENCOUNTER 2019-06-22 10:36 | Outpatient (CLI) | payer SELFPAY ==
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
== END 2019-06-22 10:37 | disposition home or self-care (01) ==
LOC: SCSRAD 10:36
PROVIDERS: ATTEND Nurse Practitioner Family
DX: M79.671 Pain in right foot (principal); M19.071 Primary osteoarthritis, right ankle and foot; M77.31 Calcaneal spur, right foot

== ENCOUNTER 2019-08-19 22:37 | Inpatient (IN) | payer OTHER, SELFPAY ==
[2019-08-19] MEDS ORDERED: Ondansetron PF 4 MG/2 ML Vial ONE (22:52)
--- NOTE | 2019-08-19 23:07 | CT ---
EXAM: CT brain without contrast HISTORY: Unwitnessed fall with head injury COMPARISON: 05/05/2019 TECHNIQUE: Multiple contiguous axial images were obtained and a CT of the brain without contrast. FINDINGS: There is an area of encephalomalacia in the right frontal lobe. There is hypodensity interm ixed with this area of encephalomalacia consistent with another right frontal contusion. There is a moderate amount of subarachnoid hemorrhage bilaterally, left greater than right. There is also a larg e amount of hemorrhage in the basilar cisterns. There is no evidence of hydrocephalus, midline shift, or downward herniation. Postsurgical changes are seen in the right frontal convexity. The visualized paranasal sinuses and ma stoid air cells are well aerated. IMPRESSION: 1. New and worsened right frontal lobe contusion 2. Large amount of extra-axial hemorrhage as above. Dr. Ramírez notified of findings at 11:02 PM on 08/19/2019
--- NOTE | 2019-08-19 23:08 | CT ---
EXAM: CT of the cervical spine without contrast HISTORY: Neck pain after fall COMPARISON: 05/05/2019 TECHNIQUE: Multiple contiguous axial images were obtained in a CT of the cervical spine without contr ast. Sagittal and coronal reformats were performed. FINDINGS: The vertebral bodies and intervertebral discs demonstrate normal height and alignment witho ut fracture or subluxation. No degenerative changes are present. No prevertebral soft tissue swelling is seen. The posterior facets are well aligned. Normal alignment of the skull base with the cervical spine is seen. The lung apices and cervical soft tissues are unremarkable. IMPRESSION: No evidence of acute osseous abnormality of the cervical spine.
--- NOTE | 2019-08-19 23:12 | RAD ---
EXAM: Single view of the chest HISTORY: Unwitnessed fall with intracranial hemorrhage COMPARISON: 07/17/2018 FINDINGS: This exam is limited secondary to rotation. Single view of the chest shows an enlarged but stable cardiomediastinal silhouette. There is no evidence of consolidation, mass, or pleural effusion. The bones are unremarkable. IMPRESSION: Cardiomegaly without evidence of acute cardiopulmonary disease
[2019-08-19] MEDS ORDERED: Metoclopramide HCl 10 MG/2 ML VIAL ONE (23:13)
[2019-08-19 23:23] LABS: #Basophils 0.1 thou/uL (0.0-0.2); #Eosinphils 0.1 thou/uL (0.0-0.7); #Lymphocytes 3.7 thou/uL (1.20-3.40); #Monocytes 0.9 thou/uL (0.11-0.59); #Neutrophils 8.4 thou/uL (1.40-6.50); %Basophils 0.6 % (0.0-1.0); %Eosinophils 1.1 % (0.0-10.0); %Lymphocytes 28.1 % (21.0-51.0); %Monocytes 6.7 % (0.0-10.0); %Neutrophils 63.5 % (42.0-75.0); Hemoglobin 13.6 g/dL (12.0-16.0); Mean Corpuscular HGB CONC 34.4 g/dL (32.0-36.0); Mean Corpuscular Hemoglobin 31.1 pg (27.0-31.0); Mean Corpuscular Volume 90.3 fL (78.0-98.0); Mean Platelet Volume 8.2 fL (7.4-10.4); Platelet Count 222 thou/uL (130-400); RBC Distribution Width 12.6 % (11.5-14.5); Red Blood Cell (RBC) Count 4.38 mill/uL (4.20-5.40); White Blood Cell (WBC) Count 13.2 thou/uL (4.8-10.8)
[2019-08-19 23:29] LABS: PTT 24.4 SEC (22.9-36.1); Prothrombin Time 13.1 SEC (12.0-14.7)
[2019-08-19] MEDS ORDERED: niCARdipine 50 MG in Sodium Chloride 0.9% 250 ML 230 ML IV SCH (23:45)
[2019-08-19 23:46] LABS: ALT (SGPT) 18 U/L (8-55); AST (SGOT) 17 U/L (5-34); Albumin 4.5 g/dL (3.4-4.8); Alkaline Phosphatase 102 U/L (40-150); Anion Gap 14 mmol/L (10-20); BUN (Urea Nitrogen) 22 mg/dL (9.8-20.1); Bilirubin, Total 0.5 mg/dL (0.2-1.2); CK (CPK) 104 U/L (29-168); Calc. Creatinine Clearance 0 mL/min (70-130); Calcium 9.3 mg/dL (7.8-10.44); Carbon Dioxide 26 mmol/L (23-31); Chloride 104 mmol/L (98-107); Estimated GFR-MDRD 70; Globulin 2.5 g/dL (2.4-3.5); Glucose 123 mg/dL (80-115); Potassium 3.7 mmol/L (3.5-5.1); Sodium 140 mmol/L (136-145)
[2019-08-20] MEDS ORDERED: Acetaminophen 1,000 MG in Premix Bag 1 BAG IVPB SCH (00:35)
[2019-08-20] MEDS ORDERED: Ondansetron PF 4 MG/2 ML Vial IVP PRN (00:35)
[2019-08-20] MEDS ORDERED: Acetaminophen 500 MG TAB PO PRN (00:35)
[2019-08-20] MEDS ORDERED: Dextrose 5% in Water 1,000 ML IV PRN (00:35)
[2019-08-20] MEDS ORDERED: Ondansetron ODT 4 MG TAB PO PRN (00:35)
[2019-08-20] MEDS ORDERED: Dextrose 50% Abboject 50 ML SYRINGE SLOW IVP PRN (00:35)
[2019-08-20 01:40] VITALS: BMI 47.1
[2019-08-20] MEDS: Sodium Chloride 0.9% 1,000 ML IV SCH ×3 (02:16→19:21)
[2019-08-20] MEDS: traMADol HCl 50 MG TAB PO PRN ×2 (03:03→17:29)
[2019-08-20] MEDS: hydrALAZINE 20 MG/ML VIAL SLOW IVP PRN (04:43)
[2019-08-20] MEDS ORDERED: Morphine 2 MG/ML SYRINGE SLOW IVP PRN (06:52)
--- NOTE | 2019-08-20 07:18 | HP ---
This is Balaji Guajardo PA-C dictating a report for Pedro Avila MD. REQUESTING PHYSICIAN: Dr. Schmidt. CONSULTATIONS: Neurosurgery, Dr. Jurado. HISTORY OF PRESENT ILLNESS=: The patient is a 64-year-old woman who was reportedly found by her daughter near some stairs, lying on the floor complaining of a headache and vomiting. The patient called 911. She was brought to the emergency department where she underwent evaluation and examination and was noted to have subarachnoid and subdural hemorrhages, at which time we were asked to evaluate the patient for admission and obtain neurosurgical consultations. The patient states daughter did accompany the patient to the hospital, this was an unwitnessed fall and the patient is unable to give a clear history of what happens other than stating she does not believe that she fell down the stairs. Her chief complaint is headache at this time and nausea, which has been relieved with Zofran. ALLERGIES: NONE. CURRENT MEDICATIONS: 1. Lovastatin. 2. Lisinopril. 3. K-Dur. 4. Lasix. 5. Advil. 6. [place]. 7. Tramadol. 8. Wellbutrin. PAST MEDICAL HISTORY: Hypertension, hyperlipidemia. Sleep apnea, the patient wears CPAP at night. Urinary incontinence, gastroesophageal reflux disease, history of pulmonary embolism, DVT, depression. PAST SURGICAL HISTORY: Right frontal craniotomy, resection of tumor, cranioplasty for repair of skull defect, bilateral knee replacement, cholecystectomy, tonsillectomy, tubal ligation, breast reduction. SOCIAL HISTORY: The patient lives with family. She is a former smoker, last smoked greater than 10 years ago. Denies drug use and drinks occasionally once a month. REVIEW OF SYSTEMS: A 10-point review of systems is negative as otherwise stated. PHYSICAL EXAMINATION: VITAL SIGNS: Blood pressure 125/64, heart rate 80, respirations 20, oxygen saturation is 100% on 2 L via nasal cannula, and temperature is 98.0. GENERAL: The patient is resting comfortably in bed. She does complain of photophobia, but states that she feels more comfortable now that her nausea is under control. The patient is awake, alert, responsive, just poor historian relating to this incidence. The patient's Krysten coma scale is 15. HEENT: Head is normocephalic, atraumatic. Eyes, extraocular motion intact. PERRLA bilaterally. Ears are atraumatic without discharge. Nose atraumatic without discharge. Oropharynx is clear. NECK: Nontender. Trachea is midline. No JVD. CHEST: Clear to auscultation with good inspiratory and expiratory effort. HEART: Regular rate and rhythm. ABDOMEN: Soft and nontender with active bowel sounds. PELVIS: Stable. EXTREMITIES: Neurovascularly intact x4. [employer] strength is equal bilaterally. There is no focal deficit noted. Back is atraumatic and nontender. LABORATORY FINDINGS: White blood cell count 13.2, hemoglobin 13.6, hematocrit 39.6, platelets 222. Sodium 140, potassium 3.7, chloride 104, CO2 of 26, BUN 22, creatinine 0.83, glucose 123. LFTs are unremarkable. CK 104. Troponin less than 0.010. BNP is 64.2, PT 13, INR 1.0, PTT 24. RADIOGRAPHIC REPORTS: CT of the brain without contrast shows moderate amount of subarachnoid hemorrhage bilaterally, left greater than right. There is also a large amount of hemorrhage in the basilar cisterns. No evidence of hydrocephalus, midline shift or downward herniation. There is new and worsened right frontal lobe contusion. CT of the C-spine without contrast shows no evidence of acute osseous abnormality of the C-spine. AP chest x-ray shows cardiomegaly without evidence of acute pulmonary disease. ASSESSMENT: 1. History of being found on the ground. 2. Intracranial hemorrhages. 3. Headache secondary to above. 4. Nausea secondary to above. 5. History of hypertension. 6. History of pulmonary embolus, no longer on anticoagulation therapy. 7. History of sleep apnea. PLAN: Plan will be to admit the patient to the critical care unit. The patient is being evaluated by Neurosurgery at the time of this dictation, likely will have a repeat head CT in the morning, sooner as indicated by a change of 2 points or more of her Krysten coma scale. The patient will have nonnarcotic pain medication, will be kept n.p.o., pulmonary toilet, gastritis and mechanical VTE prophylaxis. The evaluation, examination, laboratory, and radiographic findings will be discussed with Dr. Avila after this dictation. Job ID: [id number]
[2019-08-20] MEDS: Morphine 4 MG/ML VIAL SLOW IVP PRN ×6 (07:30→21:12)
--- NOTE | 2019-08-20 07:42 | CT ---
PRELIMINARY REPORT/[facility]/EMERGENCY AFTER HOURS PROCEDURE: PROCEDURE INFORMATION: Exam: CT Angiography Head Without And With Contrast Exam date and time: 08/20/2019 1:11 AM Clinical history: 64 years old, female; PT fell and hit head, vomiting, SAH. R/O stroke vs traumatic bleed TECHNIQUE: Imaging protocol: Computed tomographic angiography of the head without and with intravenous contrast. 3D rendering: MIP reconstructed images were created and reviewed. COMPARISON: CT Brain WO Con 08/19/2019 10:55 PM FINDINGS: Right internal carotid artery: Unremarkable. Intracranial segment is patent with no significant stenosis. No aneurysm. Right anterior cerebral artery: Mild hypoplasia of the A1 segment of the right anterior cerebral artery. Patent right anterior cerebral artery. Right middle cerebral artery: Unremarkable. No occlusion or significant stenosis. No aneurysm. Right posterior cerebral artery: Unremarkable. No occlusion or significant stenosis. No aneurysm. Right vertebral artery: Unremarkable. No occlusion or significant stenosis. No aneurysm. Left internal carotid artery: Unremarkable. Intracranial segment is patent with no significant stenosis. No aneurysm. Left anterior cerebral artery: Unremarkable. No occlusion or significant stenosis. No aneurysm. Left middle cerebral artery: Unremarkable. No occlusion or significant stenosis. No aneurysm. Left posterior cerebral artery: Unremarkable. No occlusion or significant stenosis. No aneurysm. Left vertebral artery: Unremarkable. No occlusion or significant stenosis. No aneurysm. Basilar artery: Unremarkable. No occlusion or significant stenosis. No aneurysm. HEAD: Brain: Subarachnoid hemorrhage, right frontal lobe contusions, small amount of right frontal subdural hemorrhage as well as small interhemispheric subdural - better seen on CT head without contrast dated 08/19/2019. Ventricles: Normal. No ventriculomegaly. Bones/joints: Unremarkable. No acute fracture. Sinuses: Visualized sinuses are normal. No fluid levels. Mastoid air cells: Minimal partial right mastoiditis. Orbits: Left otomastoiditis. Prior right craniotomy. IMPRESSION: 1. CTA head within normal limits. No arterial occlusion. No intracranial aneurysm. 2. Subarachnoid hemorrhage, right frontal lobe contusions, small amount of right frontal subdural hemorrhage as well as small interhemispheric subdural - better seen on CT head without contrast dated 08/19/2019. Thank you for allowing us to participate in the care of your patient. Dictated and Authenticated by: Oneal Weller MD 08/20/2019 1:57 AM Central Time ([place] & [place]) FINAL REPORT: CTA ANGIO HEAD WITH AND WITHOUT CONTRAST: History: Subarachnoid hemorrhage. Comparison: CT brain prior day. Findings: CT angiogram of the head was performed after the intravenous administration of contrast. 3-D renderin g provided. Impression: Findings and impression are concordant with the preliminary report. Transcribed Date/Time: 08/20/2019 8:23 AM
[2019-08-20] MEDS: Famotidine/PF 20 mg/2ml Vial SLOW IVP SCH ×2 (08:30→20:10)
--- NOTE | 2019-08-20 08:33 | CON ---
DATE OF CONSULTATION: 08/20/2019 HISTORY OF PRESENT ILLNESS: Luis is a 64-year-old female, who was brought to the emergency department this evening following a possible syncopal episode while she was carrying the laundry up her stairs and daughter found her down at the bottom of the stairs. She complained of severe headache with nausea and vomiting. CT of the head showed subarachnoid hemorrhage with blood in basilar cisterns. Neurosurgery was consulted. The patient does not recall what happened. She is resting in her hospital bed, but she does not recall the events that took place. She remembers hearing carrying laundry and then remembers being at the bottom of the stairs. The daughter found her and called 911. She is lying on her side and occasionally vomiting while I speak with her. She does not want to move off her side except if head pain is severe. She is awake and alert. She is oriented to person, place, and time. She is moving all 4 extremities. Speech is spontaneous and fluent. Cranial nerves are tested and intact. I do not find any lateralizing sensory or motor deficits given, however, I cannot get the full exam because she would not lie on her back. She denies any pain other than headache. No numbness or tingling in her face, arms or legs, other than some numbness in her fingers that she states has been there for some time. The patient is currently under the care of Dr. Mccarty who did a craniotomy for tumor resection of meningioma in 2018. She is almost due for her first year followup from that surgery. Otherwise, she has been doing well. Daughter states that the patient has been acting normally. They lived together with daughter Jose and they were dionne most of the day and the patient had no complaints, no fevers or chills, no headaches or nausea, or vomiting earlier in the day. She is currently not on any blood thinners. However, shortly after her brain surgery, she had all pulmonary embolus most likely due to DVT in the lower extremities. REVIEW OF SYSTEMS: A 10-point review of systems has been completed and is negative other than stated in the above HPI. ALLERGIES: NO KNOWN DRUG ALLERGIES. MEDICATIONS: 1. Lovastatin. 2. Lisinopril. 3. K-Dur. 4. Lasix. 5. Advil. 6. [place]. 7. Tramadol. 8. Wellbutrin. PAST MEDICAL HISTORY: Gastrointestinal disease, GERD, incontinence, hyperlipidemia, triglyceride, hypertension, chronic obstructive pulmonary disease, history of saddle embolism, sleep apnea, CPAP. PAST SURGICAL HISTORY: Cholecystectomy, orthopedic surgery, bilateral knee replacements, tonsillectomy, tubal ligation, breast reduction, craniotomy for meningioma removal. PSYCHIATRIC HISTORY: Includes depression. SOCIAL HISTORY: The patient drinks socially. Denies drug use. She is a former tobacco user, quit more than 10 years ago. PHYSICAL EXAMINATION: VITAL SIGNS: Blood pressure 120/62, heart rate 79, respirations 20, pain 9, O2 stats 98% on 2 L of oxygen. CONSTITUTIONAL: The patient is awake and alert. She is oriented. She is visibly distressed in pain and nauseated. She is afebrile and she was hypertensive when she arrived. HEENT: Head is normocephalic and atraumatic. Pupils are equal, round, and reactive to light. Extraocular movements are intact. Hearing is intact. Moist mucous membranes. RESPIRATIONS: Normal work of breathing on room air. Symmetric chest rise. EXTREMITIES: The patient is moving all 4 extremities well. She has normal range of motion and strength. No changes in sensation. Bilateral 5/5 strength in deltoids, biceps, triceps, negative cutter strength, hip flexion, hip extension, dorsiflexion, and plantar flexion. NEUROLOGIC: The patient is awake, alert, oriented. GCS is 15. Speech is spontaneous and fluent. Normal fund of knowledge. IMAGING: CT brain, new and worsened right frontal lobe contusion, large amount of extra-axial hemorrhage. There is bilateral subarachnoid hemorrhage, left greater than right. There is also large amount of hemorrhage in the basilar cisterns. No evidence of hydrocephalus, midline shift or downward herniation. There are postsurgical changes in right frontal Cervical spine CT with no evidence of acute osseous abnormality in cervical spine. ASSESSMENT AND PLAN: Ms. Smith is a 64-year-old female, who was brought to the emergency room following a possible syncopal episode with fall resulting in bilateral subarachnoid hemorrhage with hemorrhage in the basilar cisterns. She has severe headache, nausea, and vomiting. Currently, we would like to get a CT angio of the brain to assess for any aneurysm. Following that, we will get her into ICU, keep her blood pressure under 140 systolic. Neuro checks regularly. Her pain under control and repeat imaging, more plan once CTA has been completed. For any further questions, please contact neurosurgery team. Job ID: [id number]
--- NOTE | 2019-08-20 08:41 | PRG ---
DATE OF SERVICE: 08/20/2019 I personally interviewed and examined the patient, agreed with documentation of Bethanie Ca PA-C, dated 08/19/2019. Briefly, Amelia Smith is a pleasant 64-year-old woman who was moving laundry yesterday. When she got to the top of three steps that is the last thing she remembers until being in the emergency department. The daughter is in the room and tells me that she found her mother at the bottom of the three steps with a laundry basket pulled over on top of her and the television pulled over. When she came through, she was nauseated and had severe headache. In the emergency department, she continued to have the headache. CT examination of brain revealed subarachnoid hemorrhage in a pattern that is more consistent with spontaneous subarachnoid hemorrhage and is a trauma. A CT angiogram did not show any obvious aneurysm, however. Overnight, Ms. Smith has been in the ICU. She continued to feel some significant nausea and headache. Blood pressures have been 120s to 150s. Temperature is 97.7 degrees Fahrenheit. Other vitals are stable. On examination, I do not find any focal neurological deficits. She likes to keep her eyes closed and not move, otherwise it exacerbates her nausea, however. I reviewed CT imaging the brain and the findings are as above. The CT angiogram is likewise as above. There may be a tiny bleb at the takeoff of the left superior cerebellar artery. There is a bit of ectatic basilar, where the vertebral arteries meet. There is no obvious aneurysm. There is no ACOM aneurysm. There is no tip of the basilar aneurysm. There is no obvious MCA aneurysm on this test. Course of the test is done a little bit late in the arterial venous phase and it is obscured by some venous contrast. The plan is to get a diagnostic cerebral angiogram today or tomorrow when Dr. Mccarty is available to do it. If this is negative, then we will have to assume that Ms. Smith suffered a perimesencephalic hemorrhage and had a fall. The fall did result in a small amount of contusion under her bone flap from her meningioma resection, but that should not require any surgical intervention. We will follow up with a CT scan today. We will increase her pain medicine and get it under better control with IV morphine, and we will schedule her Zofran every 4 hours. I am going to add Keppra to avoid any seizure activity. Job ID: [id number]
--- NOTE | 2019-08-20 10:30 | CT ---
Head CT without contrast: 08/20/2019 COMPARISON: 08/19/2019 HISTORY: Reevaluate intracranial hemorrhage TECHNIQUE: Axial CT imaging obtained at 5 mm intervals from vertex through skull base without contras t FINDINGS: There is subarachnoid hemorrhage in the suprasellar cistern with significant subarachnoid h emorrhage anterior to the umesh and midbrain extending to the right as before. Subarachnoid hemorrhage is seen within the sylvian fissure on the left and there is extensive subarachnoid hemorrh age seen anteriorly in the interhemispheric fissure region. There is multifocal intra-axial hemorrhage within the inferior medial right frontal lobe and the anterior aspect of the right frontal lobe, evidence of hemorrhagic contusion. There is stable subdural blood in the right frontal region and in an anterior midline location. When compared to the prior examination the intracranial h emorrhage does not appear significantly changed. Imaged paranasal sinuses/mastoid air cells are well aerated. There is evidence of prior right frontal craniotomy. No acute osseous abnormality. There is mild right to left midline shift in the region of the inferior aspect anterior cranial fossa measuring approximately 6 mm, slightly worsened. IMPRESSION: No significant interval change in subarachnoid, subdural, and intraparenchymal hemorrhage as detailed above. Mild midline shift is seen in the region of the inferior aspect anterior cranial fossa as above.
[2019-08-20] MEDS ORDERED: ISOVUE-370 76%-LOCM 1 ML ONE (11:47)
[2019-08-20] MEDS: Ondansetron PF 4 MG/2 ML Vial IVP PRN ×2 (11:59→17:30)
--- NOTE | 2019-08-20 14:16 | PRG ---
DATE OF SERVICE: SUBJECTIVE: The patient is currently in the critical care unit. She was admitted early this morning, status post unwitnessed fall, in which she sustained an intracerebral hemorrhage. The patient was evaluated by Neurosurgery. Her repeat CT this morning appeared stable. Her CTA last night did not show any gross abnormalities. Today, Dr. Jurado is discussing with Dr. Mccarty, having had a diagnostic cerebral angiogram done trying to evaluate for a possible perimesencephalic hemorrhage. Otherwise, the patient's headache has continued. Neurosurgery has added morphine to her pain regimen now that she does not require as close monitoring and the narcotics will be allowed. We have also scheduled her Zofran due to her persistent nausea and occasional vomiting. OBJECTIVE: VITAL SIGNS: Temperature is 97.7, blood pressure 127/61, heart rate 83, respirations 19, oxygen saturation 94% on room air. GENERAL: The patient is resting comfortably in bed. She states that her headache has improved. She is still having fairly significant nausea, but the vomiting has subsided. The patient's Krysten Coma Scale is 15. HEENT: The patient does have a small contusion noted on her occiput, otherwise unremarkable. LUNGS: Clear to auscultation with good inspiratory and expiratory effort. HEART: Regular rate and rhythm. ABDOMEN: Soft, flat, nontender with active bowel sounds. EXTREMITIES: Neurovascularly intact x4. LABORATORY DATA: No labs to report this morning. RADIOGRAPHS: CT of the brain without contrast shows no significant interval change in subarachnoid, subdural, and intraparenchymal hemorrhages as detailed in the report. Mild midline shift is seen in the region of the inferior aspect of the anterior cranial fossa. ASSESSMENT AND PLAN: 1. Status post being found on the ground, possible unwitnessed fall. 2. Intracranial hemorrhages. 3. Headache secondary to above. 4. Nausea secondary to above. 5. History of hypertension. 6. History of pulmonary embolus. 7. History of sleep apnea. Plan will be to continue supportive care. We will await decision on timing of Dr. Mccarty's procedure, and afterwards, we will discuss placement with the patient. The patient was evaluated this morning with Dr. Huizar during rounds. Job ID: [id number]
[2019-08-20] MEDS: Scopolamine 1.5 mg/72 hour Patch TD SCH (19:49)
[2019-08-20] MEDS ORDERED: Acetaminophen 1,000 MG in Premix Bag 1 BAG IVPB PRN (19:56)
[2019-08-20] MEDS: Acetaminophen 1,000 MG in Premix Bag 1 BAG IVPB SCH (20:15)
[2019-08-21] MEDS: Acetaminophen 1,000 MG in Premix Bag 1 BAG IVPB SCH ×3 (02:08→15:32)
[2019-08-21] MEDS: Sodium Chloride 0.9% 1,000 ML IV SCH (02:08)
[2019-08-21] MEDS: Ondansetron PF 4 MG/2 ML Vial IVP PRN (05:25)
[2019-08-21] MEDS: Morphine 4 MG/ML VIAL SLOW IVP PRN ×2 (05:26→11:18)
[2019-08-21] MEDS ORDERED: Bisacodyl 10 MG SUPP PR PRN (06:35)
[2019-08-21] MEDS ORDERED: Heparin 10,000 UNITS/1 ML VIAL ONE (06:41)
--- NOTE | 2019-08-21 07:00 | PRG ---
DATE OF SERVICE: 08/21/2019 I saw Ms. Smith in our ICU room this morning. She still complains of severe headache, but she is awake and alert. Current blood pressure is 144, other vitals have been stable. On examination, I do not find any cranial neuropathy or lateralizing motor or sensory deficit. I do not see any lab work from this morning. Our plan today is for Ms. Smith to go to the biplane angio suite. We will look for any source of subarachnoid hemorrhage and if we find aneurysm, then Dr. Mccarty is prepared to treat it endovascularly if possible. If we find an aneurysm that cannot be treated endovascularly, then we have to take her to the operating room today. She has been n.p.o. overnight. We should treat her as a subarachnoid hemorrhage patient, so we are going to have to add nimodipine 60 mg p.o. q.4 hours. We will have to keep her blood pressure low, use stool softeners to prevent straining, keep her pain under control, and I have already added Keppra yesterday. None of the subarachnoid hemorrhage modality treatments were initiated on admission. Job ID: [id number] MTDD
[2019-08-21 07:36] LABS: #Basophils 0.1 thou/uL (0.0-0.2); #Eosinphils 0.1 thou/uL (0.0-0.7); #Lymphocytes 1.7 thou/uL (1.20-3.40); #Monocytes 0.7 thou/uL (0.11-0.59); #Neutrophils 6.5 thou/uL (1.40-6.50); %Basophils 0.9 % (0.0-1.0); %Eosinophils 0.8 % (0.0-10.0); %Lymphocytes 18.9 % (21.0-51.0); %Monocytes 8.1 % (0.0-10.0); %Neutrophils 71.3 % (42.0-75.0); Hemoglobin 11.7 g/dL (12.0-16.0); Mean Corpuscular HGB CONC 33.3 g/dL (32.0-36.0); Mean Corpuscular Hemoglobin 30.4 pg (27.0-31.0); Mean Corpuscular Volume 91.3 fL (78.0-98.0); Mean Platelet Volume 7.9 fL (7.4-10.4); Platelet Count 193 thou/uL (130-400); RBC Distribution Width 12.4 % (11.5-14.5); Red Blood Cell (RBC) Count 3.84 mill/uL (4.20-5.40); White Blood Cell (WBC) Count 9.2 thou/uL (4.8-10.8)
[2019-08-21 07:56] LABS: Anion Gap 11 mmol/L (10-20); BUN (Urea Nitrogen) 12 mg/dL (9.8-20.1); Calc. Creatinine Clearance 158 mL/min (70-130); Calcium 8.9 mg/dL (7.8-10.44); Carbon Dioxide 29 mmol/L (23-31); Chloride 106 mmol/L (98-107); Estimated GFR-MDRD Greater than 90; Glucose 116 mg/dL (80-115); Potassium 3.7 mmol/L (3.5-5.1); Sodium 142 mmol/L (136-145)
[2019-08-21] MEDS ORDERED: Ondansetron PF 4 MG/2 ML Vial ONE (08:37)
--- NOTE | 2019-08-21 08:59 | PRG ---
DATE OF SERVICE: 08/21/2019 Ms. Smith is a 64-year-old female with history significant for intracranial meningioma status post resection a few years ago. She was brought in for what may have been a fall, but where a CT scan revealed the presence of diffuse subarachnoid hemorrhage present within the basilar cisterns as well as intraparenchymal components. She has had a CT angiogram performed, which was negative for vascular abnormality. Given the imaging pattern; however, Dr. Jurado consulted me to request a conventional angiogram to be certain there is no underlying aneurysm there, AV fistula, or other vascular etiology for potential hemorrhage. I met with Ms. Smith this morning as well as her daughter to review them again the diagnosis, the images present today as well as the proposed procedure, which will be digital subtraction angiography. I informed them of risks, benefits, and alternatives, and they have provided informed consent. Job ID: [id number]
[2019-08-21] MEDS: Famotidine/PF 20 mg/2ml Vial SLOW IVP SCH ×2 (09:44→20:01)
[2019-08-21] MEDS: niMODipine 30 MG CAP PO SCH ×2 (09:45→16:42)
[2019-08-21] MEDS: Docusate 100 MG CAP PO SCH ×2 (09:50→20:01)
[2019-08-21] MEDS ORDERED: Iopamidol 370 76% 100 ML VIAL ONE (09:52)
[2019-08-21] MEDS: Dexamethasone 4 mg/ml Vial SLOW IVP SCH ×2 (10:39→18:13)
[2019-08-21] MEDS ORDERED: Promethazine HCl 25 MG/ML VIAL IM/IV PRN (14:46)
[2019-08-21] MEDS: traMADol HCl 50 MG TAB PO PRN (18:13)
[2019-08-21] MEDS: Simvastatin 5 MG TAB PO SCH (20:02)
[2019-08-21] MEDS ORDERED: Acetaminophen 500 MG TAB PO PRN (21:00)
[2019-08-22] MEDS: Dexamethasone 4 mg/ml Vial SLOW IVP SCH ×3 (02:18→18:09)
--- NOTE | 2019-08-22 05:38 | PRG ---
DATE OF SERVICE: SUBJECTIVE: The patient remains on the critical care unit. She was admitted status post unwitnessed fall, in which CT showed intracerebral hemorrhage. The patient today was reportedly taken to the label printing machinist to undergo diagnostic cerebral angiogram. These results are not in the patient's chart yet. The nurses do not report any issues, stated that her headache has greatly improved. She has some residual nausea, but there has been no reports of vomiting this evening. OBJECTIVE: VITAL SIGNS: The patient is afebrile. Vital signs are stable. GENERAL: The patient is currently sleeping in bed. Nurses state this is the first time she has gotten good sleep, so we will not wake her. She does not appear in any distress. ASSESSMENT/PLAN: 1. Status post unwitnessed fall, found on the ground. 2. Intracranial hemorrhages. 3. Headache secondary to above, improved. 4. Nausea secondary to above, improved. 5. History of hypertension. 6. History of pulmonary embolus. 7. History of sleep apnea. Plan will be to continue supportive care. The patient is wearing CPAP for her RAVIN. She will likely be able to be transferred to the surgical floor tomorrow if Neurosurgery has no objections. Job ID: [id number]
[2019-08-22] MEDS: hydrALAZINE 20 MG/ML VIAL SLOW IVP PRN ×2 (06:04→12:04)
[2019-08-22 06:05] LABS: #Lymphocytes 1.3 thou/uL (1.20-3.40); #Monocytes 0.4 thou/uL (0.11-0.59); #Neutrophils 6.9 thou/uL (1.40-6.50); %Basophils 0.1 % (0.0-1.0); %Eosinophils 0.2 % (0.0-10.0); %Lymphocytes 14.6 % (21.0-51.0); %Monocytes 4.8 % (0.0-10.0); %Neutrophils 80.3 % (42.0-75.0); Hemoglobin 12.4 g/dL (12.0-16.0); Mean Corpuscular HGB CONC 33.4 g/dL (32.0-36.0); Mean Corpuscular Hemoglobin 31.1 pg (27.0-31.0); Mean Corpuscular Volume 93.1 fL (78.0-98.0); Mean Platelet Volume 8.2 fL (7.4-10.4); Platelet Count 201 thou/uL (130-400); RBC Distribution Width 12.3 % (11.5-14.5); White Blood Cell (WBC) Count 8.6 thou/uL (4.8-10.8)
[2019-08-22 06:24] LABS: Anion Gap 12 mmol/L (10-20); BUN (Urea Nitrogen) 11 mg/dL (9.8-20.1); Calc. Creatinine Clearance 158 mL/min (70-130); Calcium 9.2 mg/dL (7.8-10.44); Carbon Dioxide 27 mmol/L (23-31); Chloride 105 mmol/L (98-107); Estimated GFR-MDRD Greater than 90; Glucose 119 mg/dL (80-115); Sodium 140 mmol/L (136-145)
[2019-08-22] MEDS ORDERED: Docusate 100 MG CAP PO SCH (09:00)
[2019-08-22] MEDS ORDERED: Gabapentin 300 MG CAP PO PRN (09:24)
[2019-08-22] MEDS: Ondansetron PF 4 MG/2 ML Vial IVP PRN (09:30)
[2019-08-22] MEDS: traMADol HCl 50 MG TAB PO PRN ×2 (09:31→20:02)
[2019-08-22] MEDS: Famotidine/PF 20 mg/2ml Vial SLOW IVP SCH ×2 (09:34→21:10)
[2019-08-22] MEDS: Citalopram 20 MG TAB PO SCH (09:35)
[2019-08-22] MEDS: Docusate 100 MG CAP PO SCH ×2 (09:35→21:10)
--- NOTE | 2019-08-22 10:01 | PRG ---
DATE OF SERVICE: 08/22/2019 SUBJECTIVE: The patient is a 64-year-old female, recently brought to the ER and found to have diffuse subarachnoid hemorrhage. She underwent diagnostic angiogram yesterday by Dr. Mccarty, which was negative for any underlying aneurysm or other vascular abnormality. She had no events overnight and is resting comfortably. OBJECTIVE: GENERAL: This morning, the patient is resting comfortably. VITAL SIGNS: Blood pressure remains well controlled and is currently 141/89, heart rate is 86. HEENT: Pupils are equal and reactive. Extraocular movements intact. EXTREMITIES: She has free active range of motion of all extremities. NEUROLOGIC: No focal neurologic deficits are appreciated. PLAN: We will continue to monitor closely in the ICU. She has p.r.n. medications for headache and nausea. Possibly to the floor tomorrow if improving. Job ID: [id number] MTDD
[2019-08-22] MEDS: Morphine 4 MG/ML VIAL SLOW IVP PRN ×2 (12:04→16:19)
--- NOTE | 2019-08-22 12:20 | EKG ---
Test Reason : Blood Pressure : / mmHG Vent. Rate : 078 BPM Atrial Rate : 078 BPM P-R Int : 216 ms QRS Dur : 146 ms QT Int : 454 ms P-R-T Axes : 072 -05 041 degrees QTc Int : 517 ms Sinus rhythm with 1st degree A-V block with frequent Premature ventricular complexes Right bundle branch block Abnormal ECG Confirmed by MAGNUS MARTINEZ M.D. ([id number]), market editor SRINIVASA ESTRADA ([id number]) on 08/22/2019 12:19:47 PM Referred By: Confirmed By:MAGNUS MARTINEZ M.D.
[2019-08-22] MEDS ORDERED: Gabapentin 100 MG CAP PO SCH ×2 (12:30→21:00)
--- NOTE | 2019-08-22 12:34 | PRG ---
DATE OF SERVICE: 08/22/2019 I am covering for Dr. Jurado. I have seen Ms. Smith and her daughter this morning. She is a 64-year-old woman, who had an unwitnessed fall and sustained both a traumatic frontal contusional injury as well as a more diffuse cisternal subarachnoid hemorrhage. To exclude intracranial aneurysm or other source of intracranial hemorrhage, both CT angiography and conventional angiography have been performed and have been negative. The patient is arousable, but has a very severe headache and continuous nausea and vomiting, precluding p.o. intake. IMPRESSION AND PLAN: No further diagnostic testing or intervention is planned. Focuses on symptomatic treatment, which may be protracted. We will continue ICU care for today. Job ID: [id number]
--- NOTE | 2019-08-22 14:14 | PRG ---
DATE OF SERVICE: 08/22/2019 SUBJECTIVE: Ms. Smith is a 64-year-old female, status post unwitnessed fall. She sustained intracerebral hemorrhage. She underwent repeat CT scan, has been stable. Diagnostic cerebral angiogram show no abnormalities. The patient continued to have severe headache and nauseated. Her vital has been stable. Urine is adequate. Neurosurgery is on and we will continue neuro check q.2 hours. At the moment, she is put on observation and conservative treatment. OBJECTIVE: GENERAL: The patient is lying down in bed, complained of severe headache, it has ranged from 7 to 8/10. HEENT: No sign of vision change or loss of hearing. VITAL SIGNS: This morning, heart rate 64, blood pressure 158/94, and O2 saturation 98 on 2 L of nasal cannula. LUNGS: Clear bilaterally. HEART: Regular rate and rhythm. ABDOMEN: Soft and nondistended. EXTREMITIES: Neurovascularly intact x4. No change of sensation. Normal range of motion x4. NEUROLOGY: No focal neurology deficits. ASSESSMENT: 1. Status post unwitnessed fall. 2. Intracranial cerebral hemorrhage. 3. Severe headache status post intracranial hemorrhage. 4. History of hypertension, pulmonary embolism, sleep apnea. PLAN: Will be to continue supportive care. Continue CPAP at night for sleep apnea. She will continue neuro check q.4 hours in CCU per Neurosurgery. Protracted headache is treated conservatively per neurosurgery Job ID: [id number] MTDD
[2019-08-22] MEDS: Simvastatin 5 MG TAB PO SCH (21:10)
[2019-08-22] MEDS: Multivitamin W/ Minerals 1 TAB PO SCH (21:10)
[2019-08-22] MEDS: Gabapentin 100 MG CAP PO SCH (21:10)
--- NOTE | 2019-08-22 22:48 | CT ---
Head CT without contrast 08/22/2019: COMPARISON: 08/20/2019 HISTORY: Double vision, headache, dizziness TECHNIQUE: Axial CT imaging at 5 mm intervals from vertex through skull base without contrast FINDINGS: There is subarachnoid hemorrhage to the right of the umesh, in the suprasellar cistern, in t he left sylvian fissure, and within the midline frontal region, decreased in volume when compared to the prior exam. There is small volume subdural hemorrhage anterior to the frontal lobe and demonst rating an anterior midline location, improved as well. A small hemorrhagic contusion is noted within the anterior aspect of the temporal lobe on the right measuring 5 mm, stable. There is multifo dona right frontal lobe hemorrhagic contusion inferiorly, slightly improved when compared to prior imaging. No new intracranial hemorrhage is seen. Visualized paranasal sinuses/mastoid air cells are well aerated. No acute displaced fracture. There i s evidence of prior right frontal craniotomy IMPRESSION: Multifocal intracranial hemorrhage as detailed above, improved when compared to the prior study. No new hemorrhage seen. No significant midline shift or mass effect. If there is clinical concern for acute infarction, brain MRI advised.
[2019-08-22] MEDS: Sodium Chloride 0.9% 1,000 ML IV SCH (23:15)
--- NOTE | 2019-08-23 00:34 | PRG ---
DATE OF SERVICE: SUBJECTIVE: The patient remains in the critical care unit. She is status post an unwitnessed fall, in which she sustained intracranial hemorrhages. The patient remains on the critical care unit today. She reportedly complained of increase in her headache, dizziness, and double vision. Repeat head CT was performed that showed multifocal intracranial hemorrhages that are improved compared to her prior studies. Radiology recommends MRI if there is concern for acute infarction. Tonight when I visited her, she stated that her nausea had improved. She has not had vomiting today, but her headache was about the same as it has previously been, which according to her is less than it was earlier today. OBJECTIVE: VITAL SIGNS: Stable. The patient is afebrile. GENERAL: The patient is resting comfortably in bed. She appears in no distress. She is awake, alert, appropriate. Krysten Coma Scale is 14, -1 for eyes. She had her eyes closed when I was in the room. She states that she does not have photophobia, but that was the appearance she gave. HEENT: Unremarkable. LUNGS: Patient is moving air effortlessly. ABDOMEN: Soft, nontender with active bowel sounds. EXTREMITIES: Neurovascularly intact x4. ASSESSMENT AND PLAN: 1. Status post unwitnessed fall, found on the ground. 2. Intracranial hemorrhages. 3. Headache secondary to above, improved. 4. Nausea secondary to above, improved. 5. History of hypertension. 6. History of pulmonary embolus. 7. History of sleep apnea. The patient will continue supportive care. CPAP for her obstructive sleep apnea. We will schedule her Tylenol. Make other nonnarcotic pain medications available p.r.n. and reserve her morphine when the patient's headache becomes severe. Job ID: [id number]
[2019-08-23] MEDS: Acetaminophen 500 MG TAB PO SCH ×4 (01:32→17:23)
[2019-08-23] MEDS: Dexamethasone 4 mg/ml Vial SLOW IVP SCH ×4 (01:32→17:25)
[2019-08-23] MEDS: traMADol HCl 50 MG TAB PO PRN (01:38)
[2019-08-23 05:12] LABS: #Lymphocytes 1.4 thou/uL (1.20-3.40); #Monocytes 0.6 thou/uL (0.11-0.59); #Neutrophils 8.1 thou/uL (1.40-6.50); %Basophils 0.3 % (0.0-1.0); %Eosinophils 0.3 % (0.0-10.0); %Lymphocytes 13.6 % (21.0-51.0); %Monocytes 5.7 % (0.0-10.0); %Neutrophils 80.1 % (42.0-75.0); Hemoglobin 11.8 g/dL (12.0-16.0); Mean Corpuscular HGB CONC 33.9 g/dL (32.0-36.0); Mean Corpuscular Hemoglobin 31.1 pg (27.0-31.0); Mean Corpuscular Volume 91.7 fL (78.0-98.0); Mean Platelet Volume 7.9 fL (7.4-10.4); Platelet Count 199 thou/uL (130-400); RBC Distribution Width 12.3 % (11.5-14.5); Red Blood Cell (RBC) Count 3.78 mill/uL (4.20-5.40); White Blood Cell (WBC) Count 10.1 thou/uL (4.8-10.8)
[2019-08-23 05:35] LABS: Anion Gap 14 mmol/L (10-20); BUN (Urea Nitrogen) 14 mg/dL (9.8-20.1); Calc. Creatinine Clearance 168 mL/min (70-130); Calcium 8.8 mg/dL (7.8-10.44); Carbon Dioxide 27 mmol/L (23-31); Chloride 99 mmol/L (98-107); Estimated GFR-MDRD Greater than 90; Glucose 120 mg/dL (80-115); Potassium 3.7 mmol/L (3.5-5.1); Sodium 136 mmol/L (136-145)
[2019-08-23] MEDS: Gabapentin 100 MG CAP PO SCH ×2 (08:38→20:37)
[2019-08-23] MEDS: Ondansetron PF 4 MG/2 ML Vial IVP PRN ×2 (08:39→20:51)
[2019-08-23] MEDS: Furosemide 20 MG TAB PO SCH ×2 (08:39→20:37)
[2019-08-23] MEDS: Docusate 100 MG CAP PO SCH ×2 (08:39→20:37)
[2019-08-23] MEDS: Famotidine/PF 20 mg/2ml Vial SLOW IVP SCH ×2 (08:39→20:37)
[2019-08-23] MEDS: Citalopram 20 MG TAB PO SCH (08:40)
--- NOTE | 2019-08-23 09:36 | PRG ---
DATE OF SERVICE: 08/23/2019 SUBJECTIVE: Last night, the patient developed some intermittent diplopia. She has also had some transient confusion. I repeated a noncontrast head CT, which shows improving subarachnoid hemorrhage and contusional injury. There is no new hemorrhage or other worrisome abnormalities. She reports she is more comfortable this morning and has had slight improvement in her vision changes. She has improvement in her nausea, but continues to have persistent headaches. OBJECTIVE: GENERAL: On exam, the patient is awake, alert, in no acute distress. HEENT: Her pupils are equal and reactive. EXTREMITIES: She has free active range of motion of all extremities. No focal motor weakness is appreciated. ASSESSMENT AND PLAN: I feel that her transient confusion maybe medication related. At this point, neurologically she otherwise appears stable. We will plan to remove her Grider catheter and transfer her to the floor. The patient has PT and OT orders, and we will have them assist us with beginning to mobilize her appropriately. Job ID: [id number]
[2019-08-23] MEDS: Sodium Chloride 0.9% 1,000 ML IV SCH ×2 (13:10→20:38)
[2019-08-23] MEDS: buPROPion 75 MG TAB PO SCH (13:12)
--- NOTE | 2019-08-23 14:31 | PRG ---
DATE OF SERVICE: 08/23/2019 Ms. Smith is alert and appropriate. Last night, she had some diplopia and has had some intermittent confusion, which has been short-lived. She has remained nonfocal. CT yesterday was satisfactory. IMPRESSION AND PLAN: Anticipate slow progress and may need rehab. Discussed with family. Job ID: [id number]
--- NOTE | 2019-08-23 14:53 | PRG ---
DATE OF SERVICE: 08/23/2019 SUBJECTIVE: Ms. Smith is a 64-year-old female, status post unwitnessed fall. She sustained intracerebral hemorrhage. She got a repeat CT scan that has been stable. Last CT scan this morning showed hemorrhage improved. Diagnostic cerebral angiogram showed no abnormality. This morning, the patient reports headache is again better. Her vital signs have been stable. Urine is adequate. Neurosurgery is transferring the patient to the floor for observation. OBJECTIVE: GENERAL: The patient is lying down in bed comfortable with no acute distress. VITAL SIGNS: Temperature 98, heart rate 99, respiratory rate 18, O2 saturation 94 on 2 L, and blood pressure 118/65. LUNGS: Clear bilaterally. HEART: Regular rate and rhythm. ABDOMEN: Soft, nondistended. EXTREMITIES: Neurovascularly intact x4. No change of sensation. Normal range of motion x4. NEUROLOGY: No focal neurology deficits. ASSESSMENT: 1. Status post unwitnessed fall. 2. Intracranial cerebral hemorrhage, stable. 3. Severe headache status post intracranial hemorrhage, improved. 4. History of hypertension, PE, and sleep apnea. PLAN: Plan will be to continue supportive care. Continue CPAP for sleep apnea. We will follow up in surgical floor and non-pharmacological DVT prophylaxis. Job ID: [id number]
[2019-08-23] MEDS: Scopolamine 1.5 mg/72 hour Patch TD SCH (17:23)
[2019-08-23] MEDS: Simvastatin 5 MG TAB PO SCH (20:37)
[2019-08-23] MEDS: Multivitamin W/ Minerals 1 TAB PO SCH (20:37)
[2019-08-24] MEDS ORDERED: cloNIDine 0.1 MG TAB PO PRN
[2019-08-24] MEDS: Acetaminophen 500 MG TAB PO SCH ×5 (00:06→23:25)
[2019-08-24] MEDS: traMADol HCl 50 MG TAB PO PRN ×3 (00:11→20:17)
[2019-08-24] MEDS: Dexamethasone 4 mg/ml Vial SLOW IVP SCH ×3 (00:55→17:54)
--- NOTE | 2019-08-24 02:55 | PRG ---
DATE OF SERVICE: 08/24/2019 SUBJECTIVE: The patient is currently on the surgical floor. The patient is status post unwitnessed fall when she sustained intracranial hemorrhages. The patient has been battling severe headache, nausea, and occasional dizziness. Nausea and visual disturbances have improved. Her headache is somewhat waxing and waning and today her sister noted that she was having some occasional confusion, but was able to be redirected. The patient was seen by Dr. Fox today who felt that this was likely all part of her postconcussive syndrome and she will likely require rehab placement to allow her to continue recovery. The patient is tolerating a diet and has been out of bed working with therapy today. OBJECTIVE: VITAL SIGNS: Stable. The patient is afebrile. GENERAL: The patient is resting comfortably in bed. She has just fallen asleep according to her sister, she appears in no distress. Respirations appear nonlabored. The patient was able to use bedside commode today. ASSESSMENT/PLAN: 1. Status post unwitnessed fall, fell on ground. 2. Intracranial hemorrhages. 3. Headache secondary to above, improved. 4. Nausea secondary to above, improved. 5. History of hypertension. 6. History of pulmonary embolus. 7. History of sleep apnea. PLAN: Plan will be to continue supportive care. We will ask speech to evaluate her for cognition. We will continue CPAP at night. Head and nausea medication adjustments as needed. Tomorrow we will discuss placement of the patient. Job ID: [id number]
--- NOTE | 2019-08-24 08:04 | PRG ---
DATE OF SERVICE: 08/24/2019 I saw Amelia Smith in her hospital room this morning. She has been moved out of the ICU and is on the general surgical floor. She is wearing her CPAP machine when I entered the room with complaints of headache when she takes it off. She has had a relatively uneventful weekend. She did not do much mobilizing due to the head pain. Blood pressures have been in 150s to 170s. I do not see any fevers recorded on our electronic vital signs. This morning, her neurological examination is normal. Her cranial nerves are working well. There is no lateralizing motor or sensory deficits. Alternating rapid motions are performed rapidly and smoothly. There is no neglect. White blood cell count is down from admission. The sodium yesterday was 136. We are going to mobilize Ms. Smith. We have treated her for the first 2 days of her admission, as though she could be having aneurysmal subarachnoid hemorrhage, but her diagnostic angiogram and her CT angiogram failed to demonstrate any aneurysm. She may have suffered a perimesencephalic venous subarachnoid hemorrhage. It would be rare in this situation to have vasospasm, but we can still keep her on a normal diet rather than a low-sodium diet. We will make sure she does not have too much free water intake. I would like to keep her quite well hydrated. I think mobilization is the jean during her hospital admission and once she is ambulatory in the halls, I suspect her head will slowly get better over time. I do not anticipate discharge today, but perhaps in the coming few days. Job ID: [id number] MTDD
[2019-08-24] MEDS: Citalopram 20 MG TAB PO SCH (08:49)
[2019-08-24] MEDS: Senokot S 8.6-50 MG TAB PO SCH ×2 (08:50→20:12)
[2019-08-24] MEDS: Isosorbide Mononitrate (ER) 30 MG TAB PO SCH (08:50)
[2019-08-24] MEDS: levETIRAcetam 500 MG TAB PO SCH ×2 (08:50→20:12)
[2019-08-24] MEDS: buPROPion 75 MG TAB PO SCH (08:50)
[2019-08-24] MEDS: Lisinopril 5 MG TAB PO SCH (08:50)
[2019-08-24] MEDS: Furosemide 20 MG TAB PO SCH ×2 (08:50→13:13)
[2019-08-24] MEDS: Docusate 100 MG CAP PO SCH ×2 (08:52→20:11)
[2019-08-24] MEDS: Polyethylene Glycol 3350 17 GM Packet PO SCH (08:52)
[2019-08-24] MEDS: Gabapentin 100 MG CAP PO SCH ×2 (08:52→20:11)
[2019-08-24] MEDS: Bisacodyl 10 MG SUPP PR SCH (08:53)
--- NOTE | 2019-08-24 14:58 | PRG ---
DATE OF SERVICE: 08/24/2019 SUBJECTIVE: Ms. Smith is a 64-year-old female, status post unwitnessed fall. She sustained intracerebral hemorrhage. She got a repeat CT scan that has been stable. The patient reports her headache is again a little bit better. She tolerated with her diet. Her urine is adequate. She is to remain in the surgical floor. Neurosurgeon, Dr. Jurado saw the patient this morning, recommended more activity. OBJECTIVE: GENERAL: The patient is lying down in bed with no acute distress. VITAL SIGNS: Temperature 98, heart rate 52, respiratory rate 18, O2 saturation 93% on 2 L, and blood pressure 127/71. LUNGS: Clear bilaterally. HEART: Regular rate and rhythm. ABDOMEN: Soft and nondistended. EXTREMITIES: Neurovascularly intact x4. NEUROLOGIC: No focal neurology deficits. ASSESSMENT: 1. Status post unwitnessed fall. 2. Intracranial cerebral hemorrhage, stable. 3. Severe headache and nausea post intracranial hemorrhage, improved. 4. History of hypertension, pulmonary embolism, and sleep apnea. PLAN: We will continue supportive care. Continue CPAP for sleep apnea. Continue nonpharmacological DVT prophylaxis and pulmonary toilet. Encourage activity with PT and sitting in the chair 3 times a day. Job ID: [id number]
[2019-08-24] MEDS: Ondansetron PF 4 MG/2 ML Vial IVP PRN (17:54)
[2019-08-24] MEDS: Simvastatin 5 MG TAB PO SCH (20:11)
[2019-08-24] MEDS: Multivitamin W/ Minerals 1 TAB PO SCH (20:12)
--- NOTE | 2019-08-24 22:56 | PRG ---
DATE OF SERVICE: 08/24/2019 SUBJECTIVE: The patient remains on the surgical floor. She is status post unwitnessed fall when she sustained intracranial hemorrhages. The patient reports today her headaches have gotten better. She denies any vomiting, but has been having some nausea. The patient has been able to progress with physical therapy and has been out of bed several times to include sitting in the chair at bedside for several hours today. PHYSICAL EXAMINATION: VITAL SIGNS: Stable. The patient is afebrile. GENERAL: The patient is resting comfortably in bed. She states she has a slight headache. The nurse is just about to medicate her. The patient states she has just returned to bed from sitting at bedside chair for several hours. RESPIRATORY: Respirations appear nonlabored. NEUROLOGIC: Nonfocal. ASSESSMENT: 1. Status post unwitnessed fall, found on ground. 2. Intracranial hemorrhages. 3. Headache secondary to above, improved. 4. Nausea secondary to above, improved. 5. History of hypertension. 6. History of pulmonary embolus. 7. History of sleep apnea. PLAN: Will be to continue supportive care. Encourage out of bed physical occupational therapy and we will continue to work on pain control of her headache. Of note, Dr. Jurado evaluated her today and asked that she have a normal diet rather than a low-sodium diet. This change was made. We will also ask that we monitor her sodiums and we will schedule labs every other day as appropriate. Job ID: [id number]
[2019-08-25] MEDS: Dexamethasone 4 mg/ml Vial SLOW IVP SCH (02:11)
[2019-08-25] MEDS: Ondansetron PF 4 MG/2 ML Vial IVP PRN (04:22)
[2019-08-25 04:26] VITALS: TEMP 98.4
[2019-08-25 04:50] LABS: Anion Gap 13 mmol/L (10-20); BUN (Urea Nitrogen) 13 mg/dL (9.8-20.1); Calc. Creatinine Clearance 168 mL/min (70-130); Calcium 9.2 mg/dL (7.8-10.44); Carbon Dioxide 32 mmol/L (23-31); Chloride 95 mmol/L (98-107); Estimated GFR-MDRD Greater than 90; Glucose 114 mg/dL (80-115); Magnesium 1.8 mg/dL (1.6-2.6); Phosphorus 2.6 mg/dL (2.3-4.7); Potassium 3.6 mmol/L (3.5-5.1); Sodium 136 mmol/L (136-145)
[2019-08-25] MEDS: Acetaminophen 500 MG TAB PO SCH ×3 (05:23→19:30)
[2019-08-25] MEDS: traMADol HCl 50 MG TAB PO PRN (05:24)
[2019-08-25] MEDS ORDERED: Potassium Chloride 20 MEQ TAB PO SCH (07:45)
[2019-08-25] MEDS ORDERED: Magnesium 2 GM/50 ML 2 GM in Premix Bag 1 BAG IVPB SCH (07:45)
[2019-08-25] MEDS ORDERED: PHOS-NAK 1 PKT PACK PO SCH (07:45)
[2019-08-25] MEDS: Lisinopril 5 MG TAB PO SCH (08:17)
[2019-08-25] MEDS: levETIRAcetam 500 MG TAB PO SCH (08:19)
[2019-08-25] MEDS: Senokot S 8.6-50 MG TAB PO SCH (08:19)
[2019-08-25] MEDS: Gabapentin 100 MG CAP PO SCH (08:19)
[2019-08-25] MEDS: Citalopram 20 MG TAB PO SCH (08:19)
[2019-08-25] MEDS: buPROPion 75 MG TAB PO SCH (08:19)
[2019-08-25] MEDS: Potassium Chloride 10 MEQ TAB PO SCH ×2 (08:19→18:51)
[2019-08-25] MEDS: Furosemide 20 MG TAB PO SCH ×2 (08:20→14:23)
[2019-08-25] MEDS: Isosorbide Mononitrate (ER) 30 MG TAB PO SCH (08:20)
[2019-08-25] MEDS: Bisacodyl 10 MG SUPP PR SCH (08:20)
[2019-08-25] MEDS: Docusate 100 MG CAP PO SCH (08:20)
[2019-08-25] MEDS: Polyethylene Glycol 3350 17 GM Packet PO SCH (08:20)
[2019-08-25 08:23] VITALS: BP 158/100
--- NOTE | 2019-08-25 09:44 | PRG ---
DATE OF SERVICE: 08/25/2019 I saw Ms. Amelia Smith in our hospital room this morning. She complains of significant headache. She has had no neurological deterioration since her admission. Her vital signs are relatively stable with no fevers recorded and blood pressures in the 150s. There are no new deficits. Sodium is 136, as it was two days ago. I plan for Ms. Smith to mobilize more aggressively. She is move around. She does not need Decadron. I will stop it. Once she is walking and independent with activities of daily living, she can be discharged home. Given the limited moving she did yesterday, I do not think that will be today. Job ID: [id number]
[2019-08-25] MEDS ORDERED: Dexamethasone 4 mg/ml Vial SLOW IVP SCH (10:00)
--- NOTE | 2019-08-25 17:39 | PRG ---
DATE OF SERVICE: 08/25/2019 SUBJECTIVE: The patient was seen this morning lying in bed. Reported pain is well controlled. Tolerating regular diet. GCS is 15. No focal neurological deficits. She is working with Physical and Occupational Therapy. She is voiding and has not had a bowel movement yet. OBJECTIVE: VITAL SIGNS: Temperature 98.4, pulse 58, respirations 20, oxygen saturation 95% on 2 L nasal cannula, blood pressure 161/80. GENERAL: A well-appearing elderly female, lying in bed with no signs of acute distress. PULMONARY: Equal chest rise and fall. Clear breath sounds bilaterally. No signs of acute respiratory distress. CARDIAC: Regular rate and rhythm. No murmurs, gallops, or rubs. GI: Abdomen is soft, nontender, and nondistended. EXTREMITIES: 2+ pulses in all extremities. No significant swelling noted. Gross motor and sensation are intact. NEUROLOGIC: GCS is 15. No focal neurological deficits. LABORATORY FINDINGS: Sodium 136, potassium 3.6, chloride 95, carbon dioxide 32, BUN 13, creatinine 2.6, magnesium 1.8. DIAGNOSTIC FINDINGS: There are no new diagnostic findings to report. ASSESSMENT: 1. Status post found down. 2. Subarachnoid hemorrhages and bilateral frontal contusions. 3. Concussive symptoms. 4. Acute hypokalemia, hypophosphatemia, and hypomagnesemia. 5. History of hypertension, uncontrolled. 6. History of hyperlipidemia. 7. Obstructive sleep apnea. 8. Gastroesophageal reflux disease. 9. Incontinence. 10. Pulmonary embolism. 11. Deep venous thrombosis. 12. Depression. 13. Frontal craniotomy. PLAN: We will continue the patient's current diet and pain regimen. She is restarted on all of her home medications. Blood pressure continues to be in the 150s to 160s, so we will increase her home lisinopril from 2.5 to 5 daily. The patient was previously started on Keppra 500 mg b.i.d., by Neurosurgery that has been transitioned to oral form. Plan from Neurosurgery is to continue Keppra 500 b.i.d. for a month. The patient is ready for discharge at this time. She is uninsured. We are trying to set up a juvenal home physical therapy as well as a rolling walker. She will likely be discharged tomorrow pending that we hear back from those juvenal services. The patient was seen and examined by Dr. Huizar and myself this morning during rounds. Job ID: [id number]
--- NOTE | 2019-08-26 01:49 | DIS ---
DATE OF ADMISSION: 08/20/2019 DATE OF DISCHARGE: 08/25/2019 ADMISSION DIAGNOSES: Found down, subarachnoid hemorrhages and bilateral frontal contusions, and concussive symptoms. DISCHARGE DIAGNOSES: Found down, subarachnoid hemorrhages and bilateral frontal contusions, and concussive symptoms. CONSULTING PHYSICIAN: Dr. Jurado of Neurosurgery. PROCEDURES PERFORMED: None. HOSPITAL COURSE: The patient is a 64-year-old female, who was brought to the emergency department via EMS after she was found down. The patient was found to have bilateral frontal contusions and subarachnoid hemorrhages. She also has a history of hypertension, hyperlipidemia, RAVIN, GERD, incontinence, PE, DVT, depression, and a previous frontal craniotomy. After admission, the patient continued to have concussive symptoms including headaches and nausea and vomiting. She was restarted on all of her home medications as well as Keppra. Per the recommendations of Neurosurgery, she will be on Keppra 500 b.i.d. for 1 month. The patient continued to be hypertensive with systolics in the 150s to 160s, and her home lisinopril was increased from 2.5 daily to 5 mg daily. At the time of discharge, the patient's pain was well controlled. She was ambulating with a walker and physical therapy. The patient is uninsured and was discharged home with home physical therapy and a rolling walker. Pain was well controlled. Tolerating a regular diet, voiding and having bowel movements. The patient wears oxygen at home at all times. DISCHARGE DISPOSITION: Home with home physical therapy. DISCHARGE CONDITION: Satisfactory. PHYSICAL EXAMINATION: VITAL SIGNS: Temperature 98.4, pulse 58, respirations 20, oxygen saturation 92 % on 2 L nasal cannula, and blood pressure 161/80. GENERAL: Well-appearing elderly female, sitting up in bed with no signs of acute distress. PULMONARY: Equal chest rise and fall. Clear breath sounds bilaterally. No signs of acute respiratory distress. CARDIAC: Regular rate and rhythm. No murmurs, gallops, or rubs. GASTROINTESTINAL: Abdomen is soft, nontender, and nondistended. EXTREMITIES: 2+ pulses in all extremities. No significant swelling noted. Gross motor and sensation are intact. NEURO: GCS is 15. No focal neurological deficits. DISCHARGE INSTRUCTIONS: The patient was discharged home. Activity as tolerated. Regular diet with Ensure twice a day. She is going to have home physical therapy and incentive spirometry, as well as a walker. DISCHARGE MEDICATIONS: Include: 1. Tylenol. 2. Wellbutrin. 3. Celexa. 4. Lasix. 5. Gabapentin. 6. Imdur. 7. Keppra for 30 days, 500 mg b.i.d. 8. Lisinopril 5 mg daily. 9. Lovastatin. 10. Multivitamins. 11. MiraLAX. 12. Potassium chloride. FOLLOWUP APPOINTMENTS: The patient will follow up with Dr. Jurado in 2 to 3 weeks. She will have a CT of the brain before her appointment. She will also continue Keppra 500mg b.i.d. until Neurosurgery tells the patient to stop. The patient is to follow up with PCP in 1 to 2 weeks for re-evaluation of lisinopril increased from 2.5 mg to 5 mg daily. No need for followup with Dr. Huizar [facility]. This is merely a summary of the patient's hospitalization. For full details, please see her medical record in its entirety. Job ID: [id number] [facility]
[2019-08-26] MEDS ORDERED: Lisinopril 5 MG TAB PO SCH (09:00)
--- NOTE | 2019-08-27 09:37 | PQF ---
[employer] Inspector [employer] Se[employer] Crystal Reports Winform ViewerKirpal, Amelia KNIGHTVIANCA Clay PA-C [id number] CLINICAL DOCUMENTATION CLARIFICATION FORM: POST DISCHARGE Addendum to original discharge summary date: ____ Late entry note date: __ DATE: ATTN: Please exercise your independent, professional judgment in responding to the clarification form. Clinical indicators are provided on the bottom of this form for your review Please check appropriate box(s): [ X ] Traumatic subarachnoid hemorrhages with LOC [ ] Traumatic subarachnoid hemorrhages without LOC Addition: please specify: Duration [ ] Concussion with loss of consciousness (30 min or less) [ ] Concussion with loss of consciousness (31 min to 59 min) [ ] Concussion with loss of consciousness (1 hour to 5 hours 59 min) [ ] Concussion with loss of consciousness (6 hours to 24 hours) [ ] Concussion with loss of consciousness (>24 hours with return to pre- existing conscious level) [ ] Concussion with loss of consciousness (>24 hours without return to pre- existing conscious level) [ ] Concussion with loss of consciousness (>24 hours with return to pre- existing conscious level with patient surviving) [ ] Concussion with loss of consciousness (Any duration with due to brain injury prior to regaining consciousness) [ ] Other diagnosis [X ] Unable to determine For continuity of documentation, please document condition throughout progress notes and discharge summary. Thank You. CLINICAL INDICATORS - SIGNS/ SYMPTOMS / LABS - Found down, Subarachnoid hemorrhages and bilateral frontal contusions-DS, , Leo eJter PA-C - Concussiove symptoms-DS, 08/25, Leo Jeter PA-C - Headaches and nausea and vomiting-DS, 08/25, Leo Jeter PA-C - this was unwitnessed fall and the patient is unable to give a clear hx of what happens ofter than stating she does not believe that she fell down the stairs- H&P, 08/20, VIANCA FORD PA-C -History of being found on the ground- H&P, 08/20, VIANCA FORD PA-C RISK FACTORS -GCS- 15- ED record, Brayan Wade MD - Syncopal event with fall - Consult, 08/20, Roby Kovacs PA-C [employer] Inspector [employer] Crystal Reports Winform Viewer-PMH: Hypertension- H&P, , VIANCA FORD PA-C - Previous craniotomy- DS,08/25, Leo Jeter PA-C TREATMENTS: -Neurologist consult - Tylenol-DS, 08/25,Leo Jeter PA-C - Keppra-DS, 08/25, Leo Jeter PA-C (This form is maintained as a part of the permanent medical record) 2014 [employer]. All Rights Reserved Jett [employer] [not provided] [not provided] MTDD
== END 2019-08-25 19:50 | disposition home or self-care (01) | DRG 84 ==
LOC: ERS 22:37 → CCU 08-20 00:02 → SURG B 08-23 11:17
PROVIDERS: ADMIT Specialist; ATTEND Specialist
PROC: B31R1ZZ Fluoroscopy of Intracranial Arteries using Low Osmolar Contrast (ICD-10-PCS; principal; 2019-08-20)
DX: S06.6X9A Traumatic subarachnoid hemorrhage with loss of consciousness of unspecified duration, initial encounter (principal); I10 Essential (primary) hypertension; S06.5X9A Traumatic subdural hemorrhage with loss of consciousness of unspecified duration, initial encounter; K21.9 Gastro-esophageal reflux disease without esophagitis; E78.5 Hyperlipidemia, unspecified; F32.9 Major depressive disorder, single episode, unspecified; E78.00 Pure hypercholesterolemia, unspecified; E87.6 Hypokalemia; E83.39 Other disorders of phosphorus metabolism; R40.2362 Coma scale, best motor response, obeys commands, at arrival to emergency department; R40.2142 Coma scale, eyes open, spontaneous, at arrival to emergency department; R40.2252 Coma scale, best verbal response, oriented, at arrival to emergency department; E83.42 Hypomagnesemia; Z96.653 Presence of artificial knee joint, bilateral; G47.33 Obstructive sleep apnea (adult) (pediatric); Z90.49 Acquired absence of other specified parts of digestive tract; Z98.51 Tubal ligation status; Z87.891 Personal history of nicotine dependence; Z86.711 Personal history of pulmonary embolism; Z79.01 Long term (current) use of anticoagulants; Z86.718 Personal history of other venous thrombosis and embolism; F07.81 Postconcussional syndrome
CPT/HCPCS: 36223; 36226; 36415; 70450; 70496; 71045; 72125; 80048; 80053; 82550; 83735; 83880; 84100; 84484; 85025; 85610; 85730; 93005; 96365; 96375; C1769; G0390; J0131; J0360; J1100; J1644; J1953; J2270; J2405; J2550; J2765; J3475; J7050; Q0162; Q9966; Q9967; S0028

== ENCOUNTER 2021-05-29 11:19 | Inpatient (IN) | payer SELFPAY ==
[2021-05-29 12:18] LABS: #Eosinphils 0.1 thou/uL (0.0-0.7); #Lymphocytes 2.2 thou/uL (1.20-3.40); #Monocytes 0.5 thou/uL (0.11-0.59); #Neutrophils 6.5 thou/uL (1.40-6.50); %Basophils 0.4 % (0.0-1.0); %Eosinophils 1.6 % (0.0-10.0); %Lymphocytes 23.5 % (21.0-51.0); %Monocytes 5.1 % (0.0-10.0); %Neutrophils 69.5 % (42.0-75.0); Hemoglobin 13.3 g/dL (12.0-16.0); Mean Corpuscular HGB CONC 32.3 g/dL (32.0-36.0); Mean Corpuscular Hemoglobin 31.2 pg (27.0-31.0); Mean Corpuscular Volume 96.7 fL (78.0-98.0); Platelet Count 212 thou/uL (130-400); RBC Distribution Width 12.8 % (11.5-14.5); Red Blood Cell (RBC) Count 4.26 mill/uL (4.20-5.40); White Blood Cell (WBC) Count 9.4 thou/uL (4.8-10.8)
[2021-05-29 12:43] LABS: ALT (SGPT) 44 U/L (8-55); AST (SGOT) 43 U/L (5-34); Albumin 4.1 g/dL (3.4-4.8); Alkaline Phosphatase 112 U/L (40-110); Anion Gap 16 mmol/L (10-20); BUN (Urea Nitrogen) 13 mg/dL (9.8-20.1); Bilirubin, Total 0.6 mg/dL (0.2-1.2); Calc. Creatinine Clearance 0 mL/min (70-130); Calcium 9.5 mg/dL (7.8-10.44); Carbon Dioxide 24 mmol/L (23-31); Chloride 105 mmol/L (98-107); Globulin 3.1 g/dL (2.4-3.5); Glucose 141 mg/dL (80-115); Potassium 3.5 mmol/L (3.5-5.1); Protein, Total 7.2 g/dL (5.8-8.1); Sodium 141 mmol/L (136-145)
[2021-05-29 13:04] LABS: CKMB 0.6 ng/mL (0-6.6)
[2021-05-29 13:20] LABS: SARS-CoV-2 NAA Rapid Test Not Detected (NotDetected)
[2021-05-29] MEDS ORDERED: Aspirin 325 MG TAB ONE (14:13)
[2021-05-29] MEDS ORDERED: Acetaminophen 500 MG TAB ONE (14:13)
[2021-05-29] MEDS ORDERED: Furosemide 40 MG/4 ML VIAL ONE (14:13)
[2021-05-29] MEDS ORDERED: Ondansetron PF 4 MG/2 ML Vial ONE (14:13)
[2021-05-29 15:57] LABS: Lactic Acid 1.8 mmol/L (0.5-2.2)
[2021-05-29 16:07] LABS: Troponin I 0.054 ng/mL (< 0.028)
[2021-05-29] MEDS ORDERED: Guaifenesin DM 100-10/5 ML UDCUP PO PRN (16:07)
[2021-05-29] MEDS ORDERED: Ondansetron ODT 4 MG TAB PO PRN (16:07)
[2021-05-29] MEDS ORDERED: Ondansetron PF 4 MG/2 ML Vial IVP PRN (16:07)
[2021-05-29 16:08] VITALS: BMI 52.6
[2021-05-29 18:11] LABS: Troponin I 0.049 ng/mL (< 0.028)
[2021-05-29] MEDS ORDERED: Magnesium 2 GM/50 ML 2 GM in Premix Bag 1 BAG IVPB SCH (19:00)
[2021-05-29] MEDS: Famotidine 20 MG TAB PO SCH ×2 (20:03→20:25)
[2021-05-29] MEDS: buPROPion 75 MG TAB PO SCH (20:25)
[2021-05-29] MEDS: risperiDONE 1 MG TAB PO SCH (20:25)
[2021-05-29] MEDS ORDERED: Simvastatin 10 MG TAB PO SCH (21:00)
[2021-05-29] MEDS ORDERED: Carvedilol 6.25 MG TAB PO SCH (21:00)
[2021-05-30 05:05] LABS: #Eosinphils 0.2 thou/uL (0.0-0.7); #Lymphocytes 3.3 thou/uL (1.20-3.40); #Monocytes 0.8 thou/uL (0.11-0.59); #Neutrophils 7.1 thou/uL (1.40-6.50); %Basophils 0.4 % (0.0-1.0); %Eosinophils 1.4 % (0.0-10.0); %Lymphocytes 28.7 % (21.0-51.0); %Monocytes 7.3 % (0.0-10.0); %Neutrophils 62.2 % (42.0-75.0); Hemoglobin 12.2 g/dL (12.0-16.0); Mean Corpuscular HGB CONC 33.8 g/dL (32.0-36.0); Mean Corpuscular Hemoglobin 32.5 pg (27.0-31.0); Mean Corpuscular Volume 95.9 fL (78.0-98.0); Mean Platelet Volume 9.1 fL (7.4-10.4); Platelet Count 192 thou/uL (130-400); RBC Distribution Width 12.7 % (11.5-14.5); Red Blood Cell (RBC) Count 3.75 mill/uL (4.20-5.40); White Blood Cell (WBC) Count 11.3 thou/uL (4.8-10.8)
[2021-05-30 05:29] LABS: Anion Gap 17 mmol/L (10-20); BUN (Urea Nitrogen) 15 mg/dL (9.8-20.1); Calc. Creatinine Clearance 131 mL/min (70-130); Carbon Dioxide 26 mmol/L (23-31); Cardiac Risk 3.2 (Less than 4.5); Chloride 103 mmol/L (98-107); Cholesterol 126 mg/dl (< 200 Desired); Glucose 103 mg/dL (80-115); HDL Cholesterol 39 mg/dL (>60 Neg Risk); LDL Cholesterol, Calculated 57 mg/dL; Magnesium 2.1 mg/dL (1.6-2.6); Potassium 3.8 mmol/L (3.5-5.1); Sodium 142 mmol/L (136-145); Triglycerides 150 mg/dL (Less than 150)
[2021-05-30] MEDS: Furosemide 40 MG/4 ML VIAL SLOW IVP SCH ×2 (05:47→15:40)
[2021-05-30] MEDS ORDERED: Carvedilol 6.25 MG TAB PO SCH (07:29)
[2021-05-30] MEDS ORDERED: traMADol HCl 50 MG TAB PO PRN (07:33)
[2021-05-30] MEDS ORDERED: Furosemide 20 MG TAB PO SCH (09:00)
[2021-05-30] MEDS: Lisinopril 5 MG TAB PO SCH (09:01)
[2021-05-30] MEDS: Aspirin 81 mg Enteric Coated Tablet PO SCH (09:01)
[2021-05-30] MEDS: Atorvastatin Calcium 10 MG TAB PO SCH (09:01)
[2021-05-30] MEDS: buPROPion 75 MG TAB PO SCH ×2 (09:01→20:28)
[2021-05-30] MEDS: Carvedilol 3.125 MG TAB PO SCH ×2 (09:01→20:28)
[2021-05-30] MEDS: Famotidine 20 MG TAB PO SCH ×3 (09:01→20:28)
[2021-05-30] MEDS: Loratadine 10 MG TAB PO SCH (09:01)
[2021-05-30] MEDS: Multivit, Therapeutic 1 TAB PO SCH (09:01)
[2021-05-30] MEDS: Acetaminophen 325 MG TAB PO PRN (17:57)
[2021-05-30] MEDS: risperiDONE 1 MG TAB PO SCH (20:28)
[2021-05-31 05:20] LABS: Anion Gap 14 mmol/L (10-20); BUN (Urea Nitrogen) 20 mg/dL (9.8-20.1); Calc. Creatinine Clearance 141 mL/min (70-130); Calcium 8.7 mg/dL (7.8-10.44); Carbon Dioxide 27 mmol/L (23-31); Chloride 102 mmol/L (98-107); Glucose 106 mg/dL (80-115); Potassium 3.4 mmol/L (3.5-5.1); Sodium 140 mmol/L (136-145)
[2021-05-31] MEDS: Furosemide 40 MG/4 ML VIAL SLOW IVP SCH ×2 (05:30→13:39)
[2021-05-31] MEDS: Atorvastatin Calcium 10 MG TAB PO SCH (08:45)
[2021-05-31] MEDS: buPROPion 75 MG TAB PO SCH ×2 (08:45→21:00)
[2021-05-31] MEDS: Loratadine 10 MG TAB PO SCH (08:45)
[2021-05-31] MEDS: Aspirin 81 mg Enteric Coated Tablet PO SCH (08:45)
[2021-05-31] MEDS: Lisinopril 5 MG TAB PO SCH (08:46)
[2021-05-31] MEDS: Famotidine 20 MG TAB PO SCH ×2 (08:46→20:52)
[2021-05-31] MEDS: Multivit, Therapeutic 1 TAB PO SCH (08:46)
[2021-05-31] MEDS: Carvedilol 3.125 MG TAB PO SCH ×2 (08:46→20:53)
[2021-05-31] MEDS ORDERED: Docusate 100 MG CAP PO PRN (09:22)
[2021-05-31] MEDS: Acetaminophen 325 MG TAB PO PRN (11:14)
[2021-05-31] MEDS ORDERED: Potassium Chloride 20 MEQ TAB PO SCH (14:45)
[2021-05-31] MEDS: Acetaminophen 500 MG TAB PO PRN (20:53)
[2021-05-31] MEDS: risperiDONE 1 MG TAB PO SCH (20:53)
[2021-06-01 05:46] LABS: Anion Gap 15 mmol/L (10-20); BUN (Urea Nitrogen) 22 mg/dL (9.8-20.1); Calc. Creatinine Clearance 143 mL/min (70-130); Calcium 8.5 mg/dL (7.8-10.44); Carbon Dioxide 26 mmol/L (23-31); Chloride 102 mmol/L (98-107); Glucose 102 mg/dL (80-115); Potassium 3.4 mmol/L (3.5-5.1); Sodium 140 mmol/L (136-145)
[2021-06-01] MEDS: Furosemide 40 MG/4 ML VIAL SLOW IVP SCH ×3 (05:50→20:09)
[2021-06-01] MEDS: Famotidine 20 MG TAB PO SCH ×2 (09:18→20:09)
[2021-06-01] MEDS: Aspirin 81 mg Enteric Coated Tablet PO SCH (09:18)
[2021-06-01] MEDS: Carvedilol 3.125 MG TAB PO SCH ×2 (09:18→20:10)
[2021-06-01] MEDS: buPROPion 75 MG TAB PO SCH ×2 (09:18→20:53)
[2021-06-01] MEDS: Lisinopril 5 MG TAB PO SCH (09:18)
[2021-06-01] MEDS: Multivit, Therapeutic 1 TAB PO SCH (09:19)
[2021-06-01] MEDS: Atorvastatin Calcium 10 MG TAB PO SCH (09:19)
[2021-06-01] MEDS: Loratadine 10 MG TAB PO SCH (09:19)
[2021-06-01] MEDS: Acetaminophen 500 MG TAB PO PRN (11:41)
[2021-06-01] MEDS ORDERED: Electrolyte Replacement Protocol FS PRN (13:30)
[2021-06-01] MEDS ORDERED: Potassium Chloride 20 MEQ TAB PO SCH (16:45)
[2021-06-01] MEDS: risperiDONE 1 MG TAB PO SCH (20:10)
[2021-06-02 05:26] LABS: Anion Gap 18 mmol/L (10-20); BUN (Urea Nitrogen) 24 mg/dL (9.8-20.1); Calc. Creatinine Clearance 134 mL/min (70-130); Carbon Dioxide 27 mmol/L (23-31); Chloride 99 mmol/L (98-107); Glucose 113 mg/dL (80-115); Potassium 3.8 mmol/L (3.5-5.1); Sodium 140 mmol/L (136-145)
[2021-06-02] MEDS: Aspirin 81 mg Enteric Coated Tablet PO SCH (08:09)
[2021-06-02] MEDS: Atorvastatin Calcium 10 MG TAB PO SCH (08:09)
[2021-06-02] MEDS: Lisinopril 5 MG TAB PO SCH (08:09)
[2021-06-02] MEDS: Famotidine 20 MG TAB PO SCH ×2 (08:09→20:03)
[2021-06-02] MEDS: buPROPion 75 MG TAB PO SCH ×2 (08:09→20:04)
[2021-06-02] MEDS: Carvedilol 3.125 MG TAB PO SCH ×2 (08:10→20:04)
[2021-06-02] MEDS: Furosemide 40 MG/4 ML VIAL SLOW IVP SCH ×3 (08:10→20:03)
[2021-06-02] MEDS: Loratadine 10 MG TAB PO SCH (08:10)
[2021-06-02] MEDS: Multivit, Therapeutic 1 TAB PO SCH (08:10)
[2021-06-02] MEDS: Acetaminophen 325 MG TAB PO PRN (20:02)
[2021-06-02] MEDS: risperiDONE 1 MG TAB PO SCH (20:04)
[2021-06-03 06:24] LABS: Anion Gap 18 mmol/L (10-20); BUN (Urea Nitrogen) 26 mg/dL (9.8-20.1); Calc. Creatinine Clearance 128 mL/min (70-130); Calcium 9.1 mg/dL (7.8-10.44); Carbon Dioxide 30 mmol/L (23-31); Chloride 97 mmol/L (98-107); Glucose 109 mg/dL (80-115); Potassium 3.4 mmol/L (3.5-5.1); Sodium 142 mmol/L (136-145)
[2021-06-03] MEDS: Acetaminophen 500 MG TAB PO PRN (07:11)
[2021-06-03] MEDS ORDERED: GUAIFENESIN SF SOLN 200 MG/10 ML UDCUP PO PRN (08:07)
[2021-06-03] MEDS ORDERED: Loperamide HCl 2 MG CAP PO PRN (08:07)
[2021-06-03] MEDS ORDERED: hydrALAZINE 20 MG/ML VIAL SLOW IVP PRN (08:07)
[2021-06-03] MEDS ORDERED: Senokot S 8.6-50 MG TAB PO PRN (08:07)
[2021-06-03] MEDS ORDERED: Calcium Carbonate 500 MG ChewTAB PO PRN (08:07)
[2021-06-03] MEDS ORDERED: Benzonatate 100 MG CAP PO PRN (08:07)
[2021-06-03] MEDS ORDERED: Sodium Chloride 0.65% Nasal 44 ML BOT EA NARE PRN (08:07)
[2021-06-03] MEDS ORDERED: Bisacodyl 5 MG TAB PO PRN (08:07)
[2021-06-03] MEDS ORDERED: Cepastat Lozenges 1 LOZ PO PRN (08:07)
[2021-06-03] MEDS ORDERED: Melatonin 3 MG TAB PO PRN (08:08)
[2021-06-03] MEDS: Atorvastatin Calcium 10 MG TAB PO SCH (08:21)
[2021-06-03] MEDS: Furosemide 40 MG/4 ML VIAL SLOW IVP SCH ×3 (08:21→21:45)
[2021-06-03] MEDS: buPROPion 75 MG TAB PO SCH ×2 (08:22→21:47)
[2021-06-03] MEDS: Lisinopril 5 MG TAB PO SCH (08:22)
[2021-06-03] MEDS: Loratadine 10 MG TAB PO SCH (08:22)
[2021-06-03] MEDS: Multivit, Therapeutic 1 TAB PO SCH (08:22)
[2021-06-03] MEDS: Famotidine 20 MG TAB PO SCH ×2 (08:22→21:45)
[2021-06-03] MEDS: Aspirin 81 mg Enteric Coated Tablet PO SCH (08:22)
[2021-06-03] MEDS: Carvedilol 3.125 MG TAB PO SCH ×2 (08:22→21:45)
[2021-06-03] MEDS ORDERED: Potassium Chloride 20 MEQ TAB PO SCH (08:30)
[2021-06-03] MEDS: Acetaminophen 325 MG TAB PO PRN (15:33)
[2021-06-03] MEDS: risperiDONE 1 MG TAB PO SCH (21:45)
[2021-06-04 05:00] LABS: #Eosinphils 0.2 thou/uL (0.0-0.7); #Lymphocytes 2.7 thou/uL (1.20-3.40); #Monocytes 0.8 thou/uL (0.11-0.59); #Neutrophils 5.8 thou/uL (1.40-6.50); %Basophils 0.4 % (0.0-1.0); %Eosinophils 2.2 % (0.0-10.0); %Lymphocytes 28.2 % (21.0-51.0); %Monocytes 8.5 % (0.0-10.0); %Neutrophils 60.7 % (42.0-75.0); Hemoglobin 12.7 g/dL (12.0-16.0); Mean Corpuscular HGB CONC 32.4 g/dL (32.0-36.0); Mean Corpuscular Hemoglobin 31.2 pg (27.0-31.0); Mean Corpuscular Volume 96.3 fL (78.0-98.0); Mean Platelet Volume 8.9 fL (7.4-10.4); Platelet Count 224 thou/uL (130-400); RBC Distribution Width 12.5 % (11.5-14.5); Red Blood Cell (RBC) Count 4.09 mill/uL (4.20-5.40); White Blood Cell (WBC) Count 9.5 thou/uL (4.8-10.8)
[2021-06-04 05:11] LABS: Anion Gap 17 mmol/L (10-20); BUN (Urea Nitrogen) 24 mg/dL (9.8-20.1); Calc. Creatinine Clearance 144 mL/min (70-130); Calcium 9.1 mg/dL (7.8-10.44); Carbon Dioxide 25 mmol/L (23-31); Chloride 99 mmol/L (98-107); Glucose 113 mg/dL (80-115); Magnesium 1.8 mg/dL (1.6-2.6); Phosphorus 3.4 mg/dL (2.3-4.7); Potassium 3.8 mmol/L (3.5-5.1); Sodium 137 mmol/L (136-145)
[2021-06-04] MEDS: Lisinopril 5 MG TAB PO SCH (08:29)
[2021-06-04] MEDS: Famotidine 20 MG TAB PO SCH (08:30)
[2021-06-04] MEDS: Multivit, Therapeutic 1 TAB PO SCH (08:31)
[2021-06-04] MEDS: buPROPion 75 MG TAB PO SCH (08:31)
[2021-06-04] MEDS: Atorvastatin Calcium 10 MG TAB PO SCH (08:31)
[2021-06-04] MEDS: Aspirin 81 mg Enteric Coated Tablet PO SCH (08:31)
[2021-06-04] MEDS: Carvedilol 3.125 MG TAB PO SCH (08:31)
[2021-06-04] MEDS: Loratadine 10 MG TAB PO SCH (08:32)
[2021-06-04] MEDS: Furosemide 40 MG/4 ML VIAL SLOW IVP SCH (08:32)
[2021-06-04 13:45] VITALS: BP 112/67; TEMP 97.9
== END 2021-06-04 14:02 | disposition home or self-care (01) | DRG 281 ==
LOC: ERS 11:19 → 2NO 13:41
PROVIDERS: ADMIT Family Medicine; ATTEND Internal Medicine
PROC: 5A09357 Assistance with Respiratory Ventilation, Less than 24 Consecutive Hours, Continuous Positive Airway Pressure (ICD-10-PCS; principal; 2021-05-30)
DX: I11.0 Hypertensive heart disease with heart failure (principal); I21.A1 Myocardial infarction type 2; Z68.43 Body mass index [BMI] 50.0-59.9, adult; Z20.822 Contact with and (suspected) exposure to COVID-19; I50.43 Acute on chronic combined systolic (congestive) and diastolic (congestive) heart failure; J44.9 Chronic obstructive pulmonary disease, unspecified; G47.33 Obstructive sleep apnea (adult) (pediatric); I48.91 Unspecified atrial fibrillation; E78.5 Hyperlipidemia, unspecified; E87.6 Hypokalemia; K21.9 Gastro-esophageal reflux disease without esophagitis; F32.9 Major depressive disorder, single episode, unspecified; Z96.653 Presence of artificial knee joint, bilateral; R09.02 Hypoxemia; E66.01 Morbid (severe) obesity due to excess calories; Z99.81 Dependence on supplemental oxygen; Z86.711 Personal history of pulmonary embolism; Z90.49 Acquired absence of other specified parts of digestive tract; Z90.89 Acquired absence of other organs; Z98.51 Tubal ligation status; Z87.891 Personal history of nicotine dependence; Z79.899 Other long term (current) drug therapy; Z86.79 Personal history of other diseases of the circulatory system
CPT/HCPCS: 0240U; 36415; 36416; 71045; 80048; 80053; 80061; 82553; 83605; 83735; 83880; 84100; 84443; 84484; 85025; 87040; 93005; 93306; 93798; 96374; 96375; J1940; J2405; J3475

== ENCOUNTER 2022-04-03 14:38 | Inpatient (IN) | payer OTHER ==
[2022-04-03 15:45] LABS: #Eosinphils 0.2 thou/uL (0.0-0.7); #Lymphocytes 3.3 thou/uL (1.20-3.40); #Monocytes 0.9 thou/uL (0.11-0.59); %Basophils 0.3 % (0.0-1.0); %Eosinophils 1.6 % (0.0-10.0); %Lymphocytes 31.7 % (21.0-51.0); %Monocytes 8.8 % (0.0-10.0); %Neutrophils 57.6 % (42.0-75.0); Hemoglobin 13.8 g/dL (12.0-16.0); Mean Corpuscular Hemoglobin 32.2 pg (27.0-31.0); Mean Corpuscular Volume 97.8 fL (78.0-98.0); Mean Platelet Volume 8.4 fL (7.4-10.4); Platelet Count 296 thou/uL (130-400); RBC Distribution Width 12.6 % (11.5-14.5); Red Blood Cell (RBC) Count 4.28 mill/uL (4.20-5.40); White Blood Cell (WBC) Count 10.5 thou/uL (4.8-10.8)
[2022-04-03 16:04] LABS: Bacteria/HPF 1+ HPF (None Seen); Bilirubin Negative (Negative); Blood, Urine Negative (Negative); Clarity Clear (Clear); Glucose, Urine (Dipstick) Normal (Negative); Ketone, Urine Negative (Negative); Leukocyte 25 Leu/uL (Negative); Nitrite 2+ (Negative); Protein, Urine (Dipstick) Negative (Neg-Trace); RBC/HPF 0-3 HPF (0-3); Specific Gravity, Urine 1.019 (1.002-1.036); Squamous Epithelial 0-3 HPF (0-3); Urobilinogen Normal mg/dL (Less than 2); WBC/HPF 0-3 HPF (0-3)
[2022-04-03 16:07] LABS: ALT (SGPT) 48 U/L (8-55); AST (SGOT) 36 U/L (5-34); Albumin 4.5 g/dL (3.4-4.8); Alkaline Phosphatase 101 U/L (40-110); Anion Gap 14 mmol/L (10-20); BUN (Urea Nitrogen) 16 mg/dL (9.8-20.1); Bilirubin, Total 0.5 mg/dL (0.2-1.2); Calc. Creatinine Clearance 0 mL/min (70-130); Calcium 10.2 mg/dL (7.8-10.44); Carbon Dioxide 28 mmol/L (23-31); Chloride 104 mmol/L (98-107); Globulin 3.3 g/dL (2.4-3.5); Glucose 114 mg/dL (80-115); Potassium 3.9 mmol/L (3.5-5.1); Protein, Total 7.8 g/dL (5.8-8.1); Sodium 142 mmol/L (136-145)
[2022-04-03 18:05] LABS: Magnesium 1.8 mg/dL (1.6-2.6)
[2022-04-03] MEDS ORDERED: Bisacodyl 5 MG TAB PO PRN (18:27)
[2022-04-03] MEDS ORDERED: Senokot S 8.6-50 MG TAB PO PRN (18:27)
[2022-04-03] MEDS ORDERED: Ondansetron PF 4 MG/2 ML Vial IVP PRN (18:27)
[2022-04-03] MEDS ORDERED: Melatonin 3 MG TAB PO PRN (18:37)
[2022-04-03] MEDS ORDERED: cefTRIAXone\\ROCEPHIN 1 GM VIAL ONE (18:45)
[2022-04-03 19:41] LABS: Troponin I 0.011 ng/mL (< 0.028)
[2022-04-03] MEDS ORDERED: Pantoprazole 40 MG VIAL IVP SCH (21:00)
[2022-04-03 23:08] VITALS: BMI 57.2
[2022-04-03] MEDS: Sodium Chloride 0.9% 1,000 ML IV SCH (23:09)
[2022-04-03 23:32] LABS: Troponin I Less than 0.010 ng/mL (< 0.028)
[2022-04-03] MEDS ORDERED: hydrALAZINE 20 MG/ML VIAL SLOW IVP PRN (23:43)
[2022-04-03] MEDS ORDERED: Atorvastatin Calcium 10 MG TAB PO SCH (23:45)
[2022-04-03] MEDS ORDERED: buPROPion 75 MG TAB PO SCH (23:45)
[2022-04-04] MEDS: Acetaminophen 325 MG TAB PO PRN ×4 (00:11→20:39)
[2022-04-04 05:07] LABS: #Eosinphils 0.2 thou/uL (0.0-0.7); #Lymphocytes 3.1 thou/uL (1.20-3.40); #Monocytes 0.7 thou/uL (0.11-0.59); #Neutrophils 5.1 thou/uL (1.40-6.50); %Basophils 0.5 % (0.0-1.0); %Eosinophils 1.9 % (0.0-10.0); %Lymphocytes 34.1 % (21.0-51.0); %Monocytes 7.5 % (0.0-10.0); %Neutrophils 55.9 % (42.0-75.0); Hemoglobin 12.6 g/dL (12.0-16.0); Mean Corpuscular HGB CONC 32.6 g/dL (32.0-36.0); Mean Corpuscular Hemoglobin 31.8 pg (27.0-31.0); Mean Corpuscular Volume 97.7 fL (78.0-98.0); Mean Platelet Volume 8.2 fL (7.4-10.4); Platelet Count 234 thou/uL (130-400); RBC Distribution Width 12.5 % (11.5-14.5); Red Blood Cell (RBC) Count 3.95 mill/uL (4.20-5.40); White Blood Cell (WBC) Count 9.1 thou/uL (4.8-10.8)
[2022-04-04 05:34] LABS: ALT (SGPT) 38 U/L (8-55); AST (SGOT) 26 U/L (5-34); Albumin 3.9 g/dL (3.4-4.8); Alkaline Phosphatase 92 U/L (40-110); Anion Gap 13 mmol/L (10-20); BUN (Urea Nitrogen) 15 mg/dL (9.8-20.1); Bilirubin, Total 0.5 mg/dL (0.2-1.2); Calc. Creatinine Clearance 144 mL/min (70-130); Calcium 9.3 mg/dL (7.8-10.44); Carbon Dioxide 28 mmol/L (23-31); Chloride 105 mmol/L (98-107); Globulin 2.8 g/dL (2.4-3.5); Glucose 109 mg/dL (80-115); Potassium 3.9 mmol/L (3.5-5.1); Protein, Total 6.7 g/dL (5.8-8.1); Sodium 142 mmol/L (136-145)
[2022-04-04] MEDS: buPROPion 75 MG TAB PO SCH ×2 (08:20→20:38)
[2022-04-04] MEDS: Loratadine 10 MG TAB PO SCH (08:20)
[2022-04-04] MEDS: Multivit, Therapeutic 1 TAB PO SCH (08:21)
[2022-04-04] MEDS ORDERED: Pantoprazole 40 MG VIAL IVP SCH (09:00)
[2022-04-04] MEDS: Sodium Chloride 0.9% 1,000 ML IV SCH (15:08)
[2022-04-04] MEDS ORDERED: Lorazepam 0.5 MG TAB PO PRN (15:50)
[2022-04-04 15:55] LABS: SARS-CoV-2 PCR by NAA Not Detected (NotDetected)
[2022-04-04] MEDS ORDERED: cefTRIAXone\\ROCEPHIN 1 GM in Sodium Chloride 0.9% 100 ML IVPB SCH (18:00)
[2022-04-04] MEDS ORDERED: Atorvastatin Calcium 10 MG TAB PO SCH (21:00)
[2022-04-05] MEDS: Acetaminophen 325 MG TAB PO PRN ×3 (02:50→13:33)
[2022-04-05] MEDS: Sodium Chloride 0.9% 1,000 ML IV SCH (06:05)
[2022-04-05] MEDS: buPROPion 75 MG TAB PO SCH (07:53)
[2022-04-05] MEDS: Multivit, Therapeutic 1 TAB PO SCH (07:54)
[2022-04-05] MEDS: Loratadine 10 MG TAB PO SCH (07:54)
[2022-04-05 12:23] VITALS: BP 153/85; TEMP 97.9
== END 2022-04-05 15:40 | disposition home or self-care (01) | DRG 312 ==
LOC: ERS 14:38 → ERHOLD 17:31 → 2SW 22:09 → OBSVTOIN 04-05 15:32
PROVIDERS: ADMIT Internal Medicine; ATTEND Internal Medicine
PROC: 5A09357 Assistance with Respiratory Ventilation, Less than 24 Consecutive Hours, Continuous Positive Airway Pressure (ICD-10-PCS; principal; 2022-04-04)
DX: R55 Syncope and collapse (principal); Z68.43 Body mass index [BMI] 50.0-59.9, adult; I50.22 Chronic systolic (congestive) heart failure; J44.9 Chronic obstructive pulmonary disease, unspecified; G47.33 Obstructive sleep apnea (adult) (pediatric); I11.0 Hypertensive heart disease with heart failure; I48.91 Unspecified atrial fibrillation; I08.1 Rheumatic disorders of both mitral and tricuspid valves; F41.9 Anxiety disorder, unspecified; E78.5 Hyperlipidemia, unspecified; F43.10 Post-traumatic stress disorder, unspecified; F32.A Depression, unspecified; R82.71 Bacteriuria; E66.01 Morbid (severe) obesity due to excess calories; K21.9 Gastro-esophageal reflux disease without esophagitis; E78.00 Pure hypercholesterolemia, unspecified; E78.1 Pure hyperglyceridemia; Z60.2 Problems related to living alone; S09.90XA Unspecified injury of head, initial encounter; W18.30XA Fall on same level, unspecified, initial encounter; I49.3 Ventricular premature depolarization; Z96.653 Presence of artificial knee joint, bilateral; Z20.822 Contact with and (suspected) exposure to COVID-19; Z90.49 Acquired absence of other specified parts of digestive tract; Z98.51 Tubal ligation status; Z98.890 Other specified postprocedural states; Z99.89 Dependence on other enabling machines and devices; Z79.82 Long term (current) use of aspirin; Z79.899 Other long term (current) drug therapy; Z85.841 Personal history of malignant neoplasm of brain; Z86.711 Personal history of pulmonary embolism; Z87.891 Personal history of nicotine dependence; Z80.41 Family history of malignant neoplasm of ovary; Z80.0 Family history of malignant neoplasm of digestive organs; Z99.81 Dependence on supplemental oxygen
CPT/HCPCS: 0439T; 36415; 70450; 80053; 81003; 81015; 83735; 84484; 85025; 87040; 87077; 87086; 87186; 93005; 93306; 93880; 96365; C9113; J0360; J0696; J3490; J7050; U0003; U0005

== ENCOUNTER 2023-11-29 14:58 | Emergency (ER) | payer MEDICARE, OTHER ==
[2023-11-29 15:43] LABS: #Eosinphils 0.1 thou/uL (0.0-0.7); #Monocytes 0.6 thou/uL (0.11-0.59); #Neutrophils 4.7 thou/uL (1.40-6.50); %Basophils 0.5 % (0.0-1.0); %Eosinophils 1.7 % (0.0-10.0); %Lymphocytes 29.3 % (21.0-51.0); %Monocytes 7.2 % (0.0-10.0); Hematocrit 35.4 % (36.0-47.0); Hemoglobin 11.2 g/dL (12.0-16.0); Mean Corpuscular HGB CONC 31.6 g/dL (32.0-36.0); Mean Corpuscular Hemoglobin 29.9 pg (27.0-31.0); Mean Corpuscular Volume 94.4 fl (78.0-98.0); Mean Platelet Volume 10.1 fL (7.4-10.4); Platelet Count 212 10x3/uL (130-400); RBC Distribution Width 13.2 % (11.5-14.5); Red Blood Cell (RBC) Count 3.75 mill/uL (4.20-5.40); White Blood Cell (WBC) Count 7.7 10x3/uL (4.8-10.8)
[2023-11-29 16:00] LABS: Acetaminophen Less than 10 mcg/mL (10.0-30.0); Alcohol Less than 10.0 mg/dL (Less than 10); Salicylate Less than 8.0 mg/dL (15.0-30.0)
[2023-11-29 16:01] LABS: ALT (SGPT) 19 U/L (8-55); AST (SGOT) 23 U/L (5-34); Albumin 3.7 g/dL (3.4-4.8); Alkaline Phosphatase 88 U/L (40-110); Anion Gap 13 mmol/L (10-20); BUN (Urea Nitrogen) 11 mg/dL (9.8-20.1); Bilirubin, Total 0.7 mg/dL (0.2-1.2); Calc. Creatinine Clearance 0 mL/min (70-130); Calcium 8.9 mg/dL (7.8-10.44); Carbon Dioxide 25 mmol/L (23-31); Chloride 104 mmol/L (98-107); Estimated GFR 96; Globulin 3.1 g/dL (2.4-3.5); Glucose 88 mg/dL (80-115); Potassium 3.9 mmol/L (3.5-5.1); Protein, Total 6.8 g/dL (5.8-8.1); Sodium 138 mmol/L (136-145)
[2023-11-29 16:58] LABS: Troponin I Less than 0.010 ng/mL (< 0.028)
[2023-11-29 17:57] LABS: Bilirubin Negative (Negative); Blood, Urine Negative (Negative); CAUTI Indications for Culture Dysuria,urgency,freq; Clarity Clear (Clear); Glucose, Urine (Dipstick) Normal (Negative); Ketone, Urine Negative (Negative); Leukocyte 75 Leu/uL (Negative); Nitrite Negative (Negative); Protein, Urine (Dipstick) Negative (Neg-Trace); RBC/HPF 0-3 HPF (0-3); Specific Gravity, Urine 1.006 (1.002-1.036); Squamous Epithelial 0-3 HPF (0-3); Urobilinogen Normal mg/dL (Less than 2)
[2023-11-29 18:02] LABS: Amphetamine Not Detected (NotDetected); Barbiturates Screen Not Detected (NotDetected); Benzodiazepine Screen Detected (NotDetected); Cocaine Metabolite Screen Not Detected (NotDetected); Methadone Not Detected (NotDetected); Methamphetamine Not Detected (NotDetected); Opiate Screen Detected (NotDetected); Oxycodone Screen Not Detected (NotDetected); Phencyclidine (PCP) Not Detected (NotDetected); THC/Cannabinoid Screen Not Detected (NotDetected); Tricyclic Screen Not Detected (NotDetected)
[2023-11-29 18:03] LABS: Bacteria/HPF 1+ HPF (None Seen); Urine Culture Reflex No No
== END 2023-11-29 18:53 | disposition home or self-care (01) ==
LOC: ERS 14:58
DX: R45.851 Suicidal ideations (principal); I11.0 Hypertensive heart disease with heart failure; I50.9 Heart failure, unspecified; J44.9 Chronic obstructive pulmonary disease, unspecified; K21.9 Gastro-esophageal reflux disease without esophagitis; E78.00 Pure hypercholesterolemia, unspecified; W19.XXXA Unspecified fall, initial encounter; Z86.711 Personal history of pulmonary embolism; Z87.891 Personal history of nicotine dependence; Z79.899 Other long term (current) drug therapy
CPT/HCPCS: 36415; 70450; 74176; 80053; 80306; 80307; 81001; 83880; 84484; 85025; 87077; 87086; 87186; 93005

== ENCOUNTER 2024-12-06 15:25 | Emergency (ER) | payer MEDICARE | END 2024-12-06 17:32 | disposition home or self-care (01) | LOC: ERS 15:25 | DX: S90.111A Contusion of right great toe without damage to nail, initial encounter (principal); I10 Essential (primary) hypertension; J44.9 Chronic obstructive pulmonary disease, unspecified; W22.09XA Striking against other stationary object, initial encounter; Z87.891 Personal history of nicotine dependence | CPT/HCPCS: 99283 ==